=== PATIENT | female | born 1940 | race Caucasian/White ===

== ENCOUNTER → 2016-05-07 | Outpatient (CLI) | payer OTHER ==
[~2016-05-07] MED LIST: ACET-1311 PO; CRD2 PO; GABA-112 PO; GLIP5TAB11 PO; HYZ/10015 PO; LEVO112T4 PO; LIRA18IN SQ; MELO15TA10 PO; METF500T5 PO; TPRSR/25 PO; TRAM-10 PO; VSC/5 PO; WARF-246 PO; [UNRECOGNIZED DRUG - CODE] PO
[2016-05-07 11:12] LABS: CHOLESTEROL/HDL RATIO 3.2
[2016-05-07 11:18] LABS: ESTIMATED AVERAGE GLUCOSE 148 mg/dl; HA1C FLAG Normal (Normal)
--- NOTE | 2016-05-14 07:09 | CODING QUERY MEDICAL NECESSITY ---
SUPPORTING DIAGNOSIS NEEDED A supporting diagnosis is required for the test/procedure performed on this patient in order for us to be reimbursed by the patient's insurance. Please provide a supporting diagnosis for the following test/procedure listed below next to the test name along with your signature. *If there is no additional diagnosis for this patient that would support the following test/procedure please document that below next to the test/procedure. Test(s)/Procedure(s) that require a supporting diagnosis: DOS 05/07 * Hba1c DIAGNOSIS: Provider Signature: Date: Thank you Patricia Guardado Health Information Management Once completed, please kindly fax back to [phone] For questions please call [phone]
== END | disposition home or self-care (01) ==
LOC: C.LABBC 08:46
PROVIDERS: ATTEND Internal Medicine Cardiovascular Disease
DX: E78.00 Pure hypercholesterolemia, unspecified (principal); I10 Essential (primary) hypertension; E11.9 Type 2 diabetes mellitus without complications

== ENCOUNTER → 2016-08-01 | Outpatient (CLI) | payer OTHER ==
[~2016-08-01] MED LIST changes: +MIRA1TAB3 PO; -TRAM-10 PO; -VSC/5 PO
[2016-08-01 13:48] LABS: ESTIMATED AVERAGE GLUCOSE 140 mg/dl; HA1C FLAG Normal (Normal)
[2016-08-01 14:35] LABS: BLOOD UREA NITROGEN 30 mg/dl (7-18); BUN/CREATININE RATIO 24.6 (10-20); CALCIUM 9.1 mg/dl (8.5-10.1); CARBON DIOXIDE 29 mmol/L (21-32); CHLORIDE 106 mmol/L (98-107); GLUCOSE 104 mg/dl (70-99); POTASSIUM 4.4 mmol/L (3.5-5.1); SODIUM 141 mmol/L (136-145)
[2016-08-01 14:49] LABS: RATIO 10.1 mcg/mg (0-30.0)
== END | disposition home or self-care (01) ==
LOC: C.LABBC 10:34
PROVIDERS: ATTEND Nurse Practitioner Family
DX: E11.8 Type 2 diabetes mellitus with unspecified complications (principal)

== ENCOUNTER → 2016-10-22 | Outpatient (CLI) | payer OTHER ==
[~2016-10-22] MED LIST changes: -MIRA1TAB3 PO
--- NOTE | 2016-10-22 10:49 | DIAGNOSTIC IMAGING REPORT ---
KUB CLINICAL HISTORY: Nephrolithiasis. Urinary incontinence. FINDINGS: 2 AP supine abdominal radiographs are compared to study dated 01/01/2016 and correlated with abdominal CT dated 11/07/2015. There is a nonobstructed abdominal bowel gas pattern. There is no radiographic evidence of nephrolithiasis. The skeletal structures are osteopenic. There is advanced lumbosacral spondylosis and scoliosis. Arthritic change is observed in the hips. The heart is enlarged. IMPRESSION: 1. Nonobstructed abdominal bowel gas pattern. 2. There is no radiographic evidence of nephrolithiasis. Electronically signed by: Jerel Pompa M.D. 10/22/2016 10:48 AM Dictated Date/Time: 10/22/2016 10:47 AM
== END | disposition home or self-care (01) ==
LOC: C.RADBC 10:22
PROVIDERS: ATTEND Urology
DX: N20.0 Calculus of kidney (principal); R32 Unspecified urinary incontinence

== ENCOUNTER → 2016-11-11 | Outpatient (CLI) | payer OTHER ==
[2016-11-11 11:25] LABS: ALT/SGPT 16 U/L (12-78); AST/SGOT 10 U/L (15-37); BLOOD UREA NITROGEN 30 mg/dl (7-18); BUN/CREATININE RATIO 27.4 (10-20); CALCIUM 8.9 mg/dl (8.5-10.1); CARBON DIOXIDE 26 mmol/L (21-32); CHLORIDE 105 mmol/L (98-107); GLUCOSE 79 mg/dl (70-99); POTASSIUM 4.4 mmol/L (3.5-5.1); SODIUM 137 mmol/L (136-145)
[2016-11-11 11:36] LABS: ALB/GLOB RATIO 0.9 (0.9-2); ALKALINE PHOSPHATASE 91 U/L (45-117); CHOLESTEROL 159 mg/dl (0-200); CHOLESTEROL/HDL RATIO 3.1; HDL CHOLESTEROL 52 mg/dl; LDL CHOLESTEROL CALCULATED 87 mg/dl; TRIGLYCERIDES 102 mg/dl (0-150); VERY LOW DENSITY LIPOPROT CALC 20 mg/dl
[2016-11-11 11:39] LABS: ESTIMATED AVERAGE GLUCOSE 134 mg/dl; HA1C FLAG Normal (Normal)
[2016-11-11 11:41] LABS: RATIO 9.9 mcg/mg (0-30.0)
== END | disposition home or self-care (01) ==
LOC: C.LABBC 08:57
PROVIDERS: ATTEND Internal Medicine Cardiovascular Disease
DX: I10 Essential (primary) hypertension (principal); I48.91 Unspecified atrial fibrillation; E03.9 Hypothyroidism, unspecified; E78.00 Pure hypercholesterolemia, unspecified; E11.8 Type 2 diabetes mellitus with unspecified complications

== ENCOUNTER → 2017-03-03 | Outpatient (CLI) | payer OTHER ==
[~2017-03-03] MED LIST changes: -GABA-112 PO; +MIRA1TAB3 PO; -[UNRECOGNIZED DRUG - CODE] PO
--- NOTE | 2017-03-04 07:51 | MAMMOGRAPHY REPORT ---
BILATERAL DIGITAL SCREENING MAMMOGRAM TOMOSYNTHESIS WITH CAD: 03/03/2017 CLINICAL HISTORY: Routine screening. Patient has no complaints. TECHNIQUE: Bilateral breast tomosynthesis in addition to standard 2D mammography was performed. Repe at 2-D right MLO, left MLO and left X cc L views were also obtained due to motion. Current study was also evaluated with a Computer Aided Detection (CAD) system. COMPARISON: Comparison is made to exams dated: 03/01/2016 mammogram, 02/22/2015 mammogram, 02/21/2014 [facility] mogram, 02/16/2013 mammogram, 02/07/2012 mammogram, and 02/04/2011 mammogram - [facility]. BREAST COMPOSITION: The tissue of both breasts is almost entirely fatty. FINDINGS: There are scattered benign-appearing calcifications and moderate vascular calcification in the breasts. Stable biopsy marker clip in the left upper outer quadrant posteriorly. No suspicious mass, architectural distortion or cluster of microcalcifications is seen. IMPRESSION: ACR BI-RADS CATEGORY 1: NEGATIVE There is no mammographic evidence of malignancy. A 1 year screening mammogram is recommended. The pa tient will receive written notification of the results. Approximately 10% of breast cancers are not detected with mammography. A negative mammographic report should not delay biopsy if a clinically suggestive mass is present. Joy Whitehead M.D. ay/:03/03/2017 16:07:11 Greens Picker: Cecy SMITH(Dm)(Amish)([place]), [facility] letter sent: Normal 1/2 BI-RADS Code: ACR BI-RADS Category 1: Negative
== END | disposition home or self-care (01) ==
LOC: C.MAMM 11:45
PROVIDERS: ATTEND Internal Medicine
DX: Z12.31 Encounter for screening mammogram for malignant neoplasm of breast (principal)

== ENCOUNTER → 2017-03-06 | Outpatient (CLI) | payer OTHER | END | disposition home or self-care (01) | LOC: C.LABBC 09:15 | PROVIDERS: ATTEND Urology | DX: N39.0 Urinary tract infection, site not specified (principal) ==

== ENCOUNTER → 2017-03-07 | Outpatient (CLI) | payer OTHER ==
[2017-03-07 15:25] LABS: BLOOD UREA NITROGEN 32 mg/dl (7-18); CREATININE 1.29 mg/dl (0.60-1.20)
== END | disposition home or self-care (01) ==
LOC: C.LABBC 11:28
PROVIDERS: ATTEND Urology
DX: E11.8 Type 2 diabetes mellitus with unspecified complications (principal); R31.9 Hematuria, unspecified

== ENCOUNTER → 2017-03-11 | Outpatient (CLI) | payer OTHER ==
[~2017-03-11] MED LIST changes: +OPTIRAY 320 IV PRN
--- NOTE | 2017-03-11 09:36 | DIAGNOSTIC IMAGING REPORT ---
ABDOMEN AND PELVIS CT WITH AND WITHOUT IV CONTRAST, UROGRAM PROTOCOL CT DOSE: 3779.73 mGy.cm HISTORY: Hematuria. TECHNIQUE: Multiaxial CT images of the abdomen and pelvis were performed both before and after the use of intravenous contrast to evaluate the urinary system. Maximal intensity projection images were performed at the workstation by the radiologist. A dose lowering technique was utilized adhering to the principles of ALARA. COMPARISON STUDY: Abdomen and pelvis CT 11/07/2015. FINDINGS: These within the lower pole the left kidney remains unchanged and measures 10 x 4 mm. There are few small stones within the left renal pelvis. This has progressed. No right renal calculi. No ureteral calculi. No hydronephrosis. Overall, poor opacification of the urinary system. Possible subtle nodularity within the right renal pelvis on image 170 of 436. This may represent artifact. The proximal to mid right ureter and mid left ureter are not opacified. No suspicious filling defects seen within the opacified left renal collecting system or opacified ureters. There is only a small amount of contrast in the bladder. No definite bladder masses. The heart remains enlarged. Bibasilar linear densities consistent with subsegmental atelectasis. Degenerative changes within the lumbar spine are again noted. Nodular contour to the liver consistent with cirrhosis. This is also unchanged. No hepatic or splenic masses. The adrenal glands and gallbladder are unremarkable. The kidneys enhance normally. Small fat-containing umbilical hernia. There is a 2.5 cm diverticulum at the duodenum. Hysterectomy. Colonic diverticulosis. No bowel wall thickening or obstruction. IMPRESSION: 1. Left-sided nephrolithiasis as described above which has slightly progressed. No right renal or ureteral calculi. No hydronephrosis. 2. Question subtle nodularity within the right renal pelvis. This favors artifact but could represent tiny urothelial lesions. Correlation with urine cytology is recommended for further evaluation. Otherwise no suspicious filling defects seen within the opacified urinary system as described above. 3. Cirrhosis. 4. Additional findings as described above. Electronically signed by: Talon Monte M.D. 03/11/2017 9:35 AM Dictated Date/Time: 03/11/2017 9:13 AM
== END | disposition home or self-care (01) ==
LOC: C.CTS 08:27
PROVIDERS: ATTEND Urology
DX: N20.0 Calculus of kidney (principal); K74.60 Unspecified cirrhosis of liver

== ENCOUNTER → 2017-03-13 | Outpatient (CLI) | payer OTHER ==
[~2017-03-13] MED LIST changes: -LIRA18IN SQ; -OPTIRAY 320 IV PRN
[2017-03-13 17:17] LABS: BLOOD UREA NITROGEN 37 mg/dl (7-18); CREATININE 1.76 mg/dl (0.60-1.20)
== END | disposition home or self-care (01) ==
LOC: C.LABBC 14:20
PROVIDERS: ATTEND Urology
DX: E11.8 Type 2 diabetes mellitus with unspecified complications (principal); R31.9 Hematuria, unspecified

== ENCOUNTER 2022-01-30 18:56 | Inpatient (IN) ==
[2022-01-30] MEDS ORDERED: SODIUM CHLORIDE 0.9% 250 ML IV PRN (19:08)
[2022-01-30] MEDS ORDERED: PANTOprazole 80 MG in DEXTROSE 5% 100 ML IV ONE (19:19)
[2022-01-30] MEDS ORDERED: PANTOPRAZOLE BOLUS/DRIP 1 EACH IV STA (19:19)
--- NOTE | 2022-01-30 19:25 | Emergency Department Note ---
Impression & Plan Acute GI bleeding, Symptomatic anemia, TERESA (acute kidney injury) ED Provider Note NAME: SOFI ADRIAN AGE: 81 SEX: F : 1940 ARRIVES VIA: Ambulance INFORMANT: Patient ED PROVIDER(S): Ajay Long DO CHIEF COMPLAINT: Low hemoglobin HPI: Patient is an 81-year-old female with a past medical history of CKD, anemia, A. fib, sciatica, hypertension, who presents to the ER for low hemoglobin. She denies all other complaints. No headache or change in vision. No chest pain or shortness of breath. No nausea, vomiting, or diarrhea. No dysuria, urgency, or frequency. No other exacerbating or remitting factors. She had her hemoglobin checked at home and went from 11-8. PCP stopped her Coumadin. There was no rectal exam. She denies any black stools or bright red blood per rectum. She notes that she does not look at her stools however. They restarted her Coumadin today and recheck her hemoglobin which decreased to 6 and she was referred in. ROS: See above HPI for pertinent positives & negatives. A total of 10 systems r eviewed and were otherwise negative. PAST MEDICAL HISTORY:See Below PAST SURGICAL HISTORY:See Below FAMILY HISTORY:See Below SOCIAL HISTORY:See Below HOME MEDICATIONS:See Below ALLERGIES:See Below VITALS:See Below PHYSICAL EXAMINATION: GENERAL: Sitting up in bed, alert, well appearing, well nourished, no distress, non-toxic EYE EXAM: normal conjunctiva. OROPHARYNX: no exudate, no erythema, lips, buccal mucosa, and tongue normal and mucous membranes are moist NECK: supple, no nuchal rigidity, no adenopathy, non-tender LUNGS: Clear to auscultation. Normal chest wall mechanics HEART: no murmurs, S1 normal and S2 normal ABDOMEN: abdomen soft, non-tender, normo-active bowel sounds, no masses, no rebound or guarding. RECTAL: hem + black stools UPPER EXTREMITIES: upper extremities are grossly normal. LOWER EXTREMITIES: No pitting edema. NEURO EXAM: Normal sensorium, cranial nerves II-XII grossly intact, normal spe ech, no gross weakness of arms, no gross weakness of legs. MEDICAL DECISION MAKING: Patient is a 81-year-old female who presents ER referred in by PCP. IV was established blood work is obtained. Labs show no significant leukocytosis. Anemia at 6.7 which went from 10 to 8 over the past week and then down to 6.7. INR at 3.2. BMP with a creatinine of 2.1 up from baseline of 1.5. LFTs bilirubin was unremarkable. Blood was heme positive and dark. Patient was orde red 2 units PRBC PEs and was started while in the ER. Patient was updated bedside at admitted for further work-up with Dr. Car. Patient was given Protonix drip and bolus. Of note hospitalist was called prior to the results of blood work as patient had blood work done as an outpatient which showed low hemoglobin. Which had trended down. Triage Nursing notes reviewed. Limited review of prior medical records performed Vital Signs: reviewed and remarkable for no significant abnormalities Differential diagnosis: Differential diagnosis includes etiologies such as diverticulitis, diverticulosis, AVM, coagulopathy, colitis, inflammatory bowel disease, malignancy, Tori-Almaguer tear, esophagitis, peptic ulcer disease, variceal bleed, gastritis, epistaxis, fissure, hemorrhoids, as well as others were entertained. ER treatment provided: See below Diagnostics interpreted by me: ECG: A. fib rate 87 T wave inversion lead III T wave inversions in the septal leads ST depressions in the lateral leads QTC 428 T wave changes are new from previous Cardiac Monitoring: An order was placed for continuous cardiac monitoring. The monitor shows a rate of 90 with sinus rhythm. Laboratory studies: As stated above and show below. Imaging studies: See below Consultation(s): Discussed with Dr. Abel Car for further evaluation Procedures: none Critical Care: I have personally spent 32 minutes of critical care time in the direct management of this patient. This includes bedside care, interpretation of diagnostic studies, and testing, discussion with consultants, patient, and family members, and other required patient management activities. This 32 minutes is in excess of all separately billable procedures. Past Med/Surg History Medical History (Updated 01/30/22 @ 23:07 by Ajay Long DO) Afib Dx a long time ago, taking warfarin Follows with medical doctor (Hilary JI) Rate controlled at 08/2020 PCP appt CKD (chronic kidney disease), stage III Closed fracture of left proximal humerus 2019- no surgical intervention needed Cognitive disorder Diabetes mellitus type 2, uncontrolled Glucose well controlled Dyslipidemia 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 Hypertension Hypothyroidism Nephrolithiasis, uric acid Hx of and had surgery Sciatica Urge incontinence Surgical History H/O total knee replacement right and left History of appendectomy History of bilateral cataract extraction History of total abdominal hysterectomy and bilateral salpingo-oophorectomy History of tubal ligation Hx of lithotripsy Family History Father Diabetes Hypertension Emphysema, unspecified Mother Hypertension Myocardial infarction Sister Alzheimer disease Hypertension Denies family history of Ovarian cancer Prostate cancer Breast cancer Lung cancer Colorectal cancer Social History Smoking Status: Never smoker Age Started Using Tobacco: 17; Age Quit Using Tobacco: 21; packs per day: 1; Second Hand Exposure: No; Hx Alcohol Use: Yes Alcohol type: wine and hard liquor Alcohol Intake Frequency: 4 or More x per/Week Hx Substance Use: No Preferred Language: [place] Communication Ability: Effective Visual Impairment: Limited Hearing Ability: Normal Heel Slicker Required: No Beliefs That Will Affect Care: None marital status: Single Current Living Situation: Alone current occupational status: retired Feels Safe at Home: Yes Childhood Exposure to Second-Hand Smoke: No caffeine: Yes Dental Care, Regularly: Yes Physical Activity Frequency: Does not Exercise Seatbelt Use: always Sunscreen Use: Yes Assistive Devices: Cane and Contacts Allergies Allergies Allergy/AdvReac Type Severity Reaction Status Date / Time Penicillins Allergy Intermediate Hives Verified 01/30/22 20:05 cefuroxime [From Ceftin] AdvReac Intermediate Diarrhea Verified 01/30/22 20:05 pioglitazone AdvReac Intermediate Fluid Verified 01/30/22 20:05 retention Home Meds Home Medications Medication Instructions Recorded Confirmed acetaminophen 500 mg tablet 1,000 mg PO BID Pain 06/21/21 01/30/22 (Tylenol Extra Strength) warfarin 5 mg tablet 5 mg PO QPM 01/25/22 01/30/22 Previous Rx's Medication Instructions Recorded cholecalciferol (vitamin D3) 50 50 mcg PO DAILY #30 caps 09/11/20 mcg (2,000 unit) capsule tramadol 50 mg tablet 25 mg PO DAILY PRN pain #15 tabs 09/20/20 doxazosin 2 mg tablet 2 mg PO QAM #90 tabs 02/13/21 metoprolol succinate 25 mg 25 mg PO QAM #90 tabs 06/20/21 tablet,extended release 24 hr metformin 500 mg tablet,extended 500 mg PO BID #180 tabs 10/12/21 release 24 hr levothyroxine 112 mcg tablet 112 mcg PO QAM #90 tabs 11/08/21 trospium 20 mg tablet 20 mg PO HS #90 tabs 12/12/21 losartan 100 1 tab PO QAM #90 tabs 12/13/21 mg-hydrochlorothiazide 25 mg tablet (Hyzaar) ciprofloxacin HCl 250 mg tablet 250 mg PO BID 5 days #10 tabs 01/24/22 Results & Data (ED) Vital Signs Vital Signs - 24 hr 01/30/22 18:52 01/30/22 19:07 01/30/22 19:30 Temperature 36.6 C Temperature Source Oral Pulse Rate 87 88 Pulse Rate [Apical] 88 Respiratory Rate 18 18 18 Respiratory Effort / Characteristics Non-Labored Non-Labored Respiratory Depth Normal Normal Blood Pressure 152/66 H Blood Pressure [Right Arm] 152/66 H Blood Pressure Mean 94 Blood Pressure Mean [Right Arm] 94 Pulse Oximetry 99 99 97 Oxygen Delivery Method Room Air Room Air Room Air Sepsis Recent Fever Within 48 Hours No Sepsis New/Unexplained Change in Mental Status No Sepsis Action Taken by Nursing No Action Required Laboratory Data Result diagrams: 01/30/22 19:16 01/30/22 19:16 Lab Results 01/30/22 01/30/22 01/30/22 Range/Units 19:07 19:16 19:16 WBC 9.59 (4.8-10.8) K/ul RBC 2.51 L (3.93-5.22) M/uL Hgb 6.7 L* (12.0-16.0) g/dl Hct 21.9 L (34.1-44.9) % MCV 87.3 (80.0-100.0) fL MCH 26.7 (25.0-34.0) pg MCHC 30.6 L (32.0-36.0) g/dL RDW Std Deviation 54.8 H (36.4-46.3) fL RDW Coeff of Amos 17.5 H (11.5-14.5) % Plt Count 212 (130-400) K/uL MPV 11.4 (9.4-12.3) fL Immature Gran % (Auto) 0.5 % Neut % (Auto) 65.7 % Lymph % (Auto) 12.9 % [place] % (Auto) 17.6 % Eos % (Auto) 2.7 % Baso % (Auto) 0.6 % Neut # (Auto) 6.29 (1.4-6.5) K/uL Lymph # (Auto) 1.24 (1.2-3.4) K/uL [place] # (Auto) 1.69 H (0.24-0.82) K/uL Eos # (Auto) 0.26 (0-0.50) K/uL Baso # (Auto) 0.06 (0-0.2) K/uL Immature Gran # (Auto) 0.05 H (0.00-0.02) K/uL RBC Morphology Unremarkable PT 22.1 H (9.0-12.0) Seconds INR 2.2 H (0.9-1.1) APTT 41.1 H (21.0-31.0) Seconds PTT Ratio 1.5 Sodium (136-145) mmol/L Potassium (3.5-5.1) mmol/L Chloride (98-107) mmol/L Carbon Dioxide (21-32) mmol/L Anion Gap (3-11) BUN (6-23) mg/dl Creatinine (0.6-1.2) mg/dl Est Cr Clr Drug Dosing ml/min Est GFR ( Amer) ml/min Est GFR (Non-Af Amer) ml/min BUN/Creatinine Ratio (10-20) Glucose (70-99(Fasting)) mg/dl Calcium (8.5-10.1) mg/dl Iron (35-150) mcg/dl Unsaturated IBC (155-355) mcg/dl Total Bilirubin (0.2-1.0) mg/dl AST (13-39) U/L ALT (7-52) U/L Alkaline Phosphatase (34-104) U/L Troponin I High Sens (0-14) pg/ml Total Protein (6.0-8.3) gm/dl Albumin (3.4-5.0) gm/dl Globulin (2.5-4.0) gm/dl Albumin/Globulin Ratio (0.9-2) Vitamin B12 (180-914) pg/ml Folate (>5.38) ng/ml POC Stool Occult Blood Positive A (Negative) SARS-CoV-2, RNA, NAAT (NEGATIVE) Blood Type Antibody Screen Crossmatch 01/30/22 01/30/22 01/30/22 Range/Units 19:16 19:16 19:16 WBC (4.8-10.8) K/ul RBC (3.93-5.22) M/uL Hgb (12.0-16.0) g/dl Hct (34.1-44.9) % MCV (80.0-100.0) fL MCH (25.0-34.0) pg MCHC (32.0-36.0) g/dL RDW Std Deviation (36.4-46.3) fL RDW Coeff of Amos (11.5-14.5) % Plt Count (130-400) K/uL MPV (9.4-12.3) fL Immature Gran % (Auto) % Neut % (Auto) % Lymph % (Auto) % [place] % (Auto) % Eos % (Auto) % Baso % (Auto) % Neut # (Auto) (1.4-6.5) K/uL Lymph # (Auto) (1.2-3.4) K/uL [place] # (Auto) (0.24-0.82) K/uL Eos # (Auto) (0-0.50) K/uL Baso # (Auto) (0-0.2) K/uL Immature Gran # (Auto) (0.00-0.02) K/uL RBC Morphology PT (9.0-12.0) Seconds INR (0.9-1.1) APTT (21.0-31.0) Seconds PTT Ratio Sodium 135 L (136-145) mmol/L Potassium 4.2 (3.5-5.1) mmol/L Chloride 104 (98-107) mmol/L Carbon Dioxide 23 (21-32) mmol/L Anion Gap 8 (3-11) BUN 62 H (6-23) mg/dl Creatinine 2.01 H (0.6-1.2) mg/dl Est Cr Clr Drug Dosing 29.5 ml/min Est GFR ( Amer) 26.5 ml/min Est GFR (Non-Af Amer) 22.9 ml/min BUN/Creatinine Ratio 30.8 H (10-20) Glucose 238 H (70-99(Fasting)) mg/dl Calcium 8.0 L (8.5-10.1) mg/dl Iron 28 L (35-150) mcg/dl Unsaturated IBC 306 (155-355) mcg/dl Total Bilirubin 0.3 (0.2-1.0) mg/dl AST 10 L (13-39) U/L ALT 10 (7-52) U/L Alkaline Phosphatase 100 (34-104) U/L Troponin I High Sens 16.4 H (0-14) pg/ml Total Protein 7.3 (6.0-8.3) gm/dl Albumin 3.5 (3.4-5.0) gm/dl Globulin 3.8 (2.5-4.0) gm/dl Albumin/Globulin Ratio 0.9 (0.9-2) Vitamin B12 (180-914) pg/ml Folate (>5.38) ng/ml POC Stool Occult Blood (Negative) SARS-CoV-2, RNA, NAAT NEGATIVE (NEGATIVE) Blood Type Antibody Screen Crossmatch 01/30/22 01/30/22 Range/Units 19:16 19:24 WBC (4.8-10.8) K/ul RBC (3.93-5.22) M/uL Hgb (12.0-16.0) g/dl Hct (34.1-44.9) % MCV (80.0-100.0) fL MCH (25.0-34.0) pg MCHC (32.0-36.0) g/dL RDW Std Deviation (36.4-46.3) fL RDW Coeff of Amos (11.5-14.5) % Plt Count (130-400) K/uL MPV (9.4-12.3) fL Immature Gran % (Auto) % Neut % (Auto) % Lymph % (Auto) % [place] % (Auto) % Eos % (Auto) % Baso % (Auto) % Neut # (Auto) (1.4-6.5) K/uL Lymph # (Auto) (1.2-3.4) K/uL [place] # (Auto) (0.24-0.82) K/uL Eos # (Auto) (0-0.50) K/uL Baso # (Auto) (0-0.2) K/uL Immature Gran # (Auto) (0.00-0.02) K/uL RBC Morphology PT (9.0-12.0) Seconds INR (0.9-1.1) APTT (21.0-31.0) Seconds PTT Ratio Sodium (136-145) mmol/L Potassium (3.5-5.1) mmol/L Chloride (98-107) mmol/L Carbon Dioxide (21-32) mmol/L Anion Gap (3-11) BUN (6-23) mg/dl Creatinine (0.6-1.2) mg/dl Est Cr Clr Drug Dosing ml/min Est GFR ( Amer) ml/min Est GFR (Non-Af Amer) ml/min BUN/Creatinine Ratio (10-20) Glucose (70-99(Fasting)) mg/dl Calcium (8.5-10.1) mg/dl Iron (35-150) mcg/dl Unsaturated IBC (155-355) mcg/dl Total Bilirubin (0.2-1.0) mg/dl AST (13-39) U/L ALT (7-52) U/L Alkaline Phosphatase (34-104) U/L Troponin I High Sens (0-14) pg/ml Total Protein (6.0-8.3) gm/dl Albumin (3.4-5.0) gm/dl Globulin (2.5-4.0) gm/dl Albumin/Globulin Ratio (0.9-2) Vitamin B12 370 (180-914) pg/ml Folate 5.80 (>5.38) ng/ml POC Stool Occult Blood (Negative) SARS-CoV-2, RNA, NAAT (NEGATIVE) Blood Type A Positive Antibody Screen NEGATIVE Crossmatch See Detail Administered Medications Acetaminophen (Acetaminophen 500 Mg Tab) 1,000 mg PO BID SANAZ Stop: 03/01/22 22:59 Last Admin: 01/30/22 23:02 Dose: 1,000 mg Documented By: HENRI Pantoprazole Sodium 40 mg/ (Syringe) 10 mls @ 5 mls/min IV BID SANAZ Stop: 01/13/23 21:59 Last Admin: 01/30/22 23:01 Dose: 5 mls/min Documented By: HENRI Insulin Aspart (Insulin Aspart Per Unit) 0 units SC Q6 SANAZ Stop: 03/01/22 21:59 Last Admin: 01/30/22 23:02 Dose: 4 units Documented By: HENRI Co-signed By: GUILLE Insulin Glargine (Lantus Per Unit Charge) 5 units SQ BID SANAZ Stop: 03/01/22 22:59 Last Admin: 01/30/22 23:02 Dose: 5 units Documented By: HENRI Co-signed By: GUILLE Discontinued Medications Pantoprazole Sodium (Protonix Bolus/Drip) 0 mls @ 1 mls/hr IV ONE STA Stop: 01/30/22 19:20 Last Admin: 01/30/22 20:39 Dose: Not Given Documented By: HANK Pantoprazole Sodium 40 mg/ (Dextrose) 100 mls @ 20 mls/hr IV Q5H SANZA Stop: 03/01/22 19:44 Last Admin: 01/30/22 20:39 Dose: 8 mg/hr, 20 mls/hr Documented By: HANK Pantoprazole Sodium 80 mg/ (Dextrose) 120 mls @ 400 mls/hr IV NOW ONE Stop: 01/30/22 19:36 Last Infusion: 01/30/22 21:19 Dose: 0 mls/hr Documented By: Admin: 01/30/22 20:39 Dose: 400 mls/hr Documented By: HANK Discharge Plan Visit Data Chief Complaint: Abnormal Labs/Diagnostic Testing Stated Complaint: low blood count ED Provider: Ajay Long Discharge Problem: Acute GI bleeding, Symptomatic anemia, TERESA (acute kidney injury) Patient Disposition: Admitted As Inpatient Discharge Instructions Interventions: ED Discharge Assessment Last Done: 01/30/22 21:33
[2022-01-30] MEDS ORDERED: PANTOprazole 40 MG in DEXTROSE 5% 100 ML IV SCH (19:45)
[2022-01-30 20:05] LABS: INR 2.2 (0.9-1.1); Partial Thromboplastin Ratio 1.5; Partial Thromboplastin Time 41.1 Seconds (21.0-31.0); Prothrombin Time 22.1 Seconds (9.0-12.0)
[2022-01-30 20:07] LABS: Albumin Globulin Ratio 0.9 (0.9-2); Albumin Level 3.5 gm/dl (3.4-5.0); BUN Creatinine Ratio 30.8 (10-20); Bilirubin,Total 0.3 mg/dl (0.2-1.0); Creatinine Clr Calc Pharmacy 29.5 ml/min; Est GFR (African American) 26.5 ml/min; Est GFR (Non-African American) 22.9 ml/min; Globulin 3.8 gm/dl (2.5-4.0); Potassium 4.2 mmol/L (3.5-5.1); Total Protein 7.3 gm/dl (6.0-8.3)
[2022-01-30 20:22] LABS: Hematocrit (blood only) 21.9 % (34.1-44.9); Hemoglobin 6.7 g/dl (12.0-16.0); Mean Corpuscular Hemoglobin 26.7 pg (25.0-34.0); Mean Corpuscular Hgb Conc 30.6 g/dL (32.0-36.0); Mean Corpuscular Volume 87.3 fL (80.0-100.0); Mean Platelet Volume 11.4 fL (9.4-12.3); Platelet Count 212 K/uL (130-400); RDW Coefficient of Variation 17.5 % (11.5-14.5); RDW Standard Deviation 54.8 fL (36.4-46.3); Red Blood Count 2.51 M/uL (3.93-5.22); White Blood Count 9.59 K/ul (4.8-10.8)
[2022-01-30 20:24] LABS: Basophils # (auto) 0.06 K/uL (0-0.2); Basophils % (auto) 0.6 %; Eosinophils # (auto) 0.26 K/uL (0-0.50); Eosinophils % (auto) 2.7 %; Immature Granulocytes # (auto) 0.05 K/uL (0.00-0.02); Immature Granulocytes % (auto) 0.5 %; Lymphocytes # (auto) 1.24 K/uL (1.2-3.4); Lymphocytes % (auto) 12.9 %; Monocytes # (auto) 1.69 K/uL (0.24-0.82); Monocytes % (auto) 17.6 %; Neutrophils # (auto) 6.29 K/uL (1.4-6.5); Neutrophils % (auto) 65.7 %; RBC Morphology Unremarkable
--- NOTE | 2022-01-30 20:25 | History & Physical Report ---
Date of Service January 30, 2022 Assessment & Plan (1) GI bleed: Plan: -Admit to med/tele -Patient is currently afebrile, hemodynamically stable, and stable on RA -Outside labs showing Hgb of 6.3, patient found to be heme + on stool test in the ED -Was consented for transfusion, 2 units ordered by the ED, already started on Protonix drip prior to admission -Will make NPO except meds, hold warfarin for now, INR is currently 2.2, patient is stable and without major bleed at this time so will not reverse for now -Ordering two large bore IVs and orthostatic vitals -GI consult placed -Monitor CBC q6h with communication to time first CBC 1-2 hours after tra nsfusions have been completed -AM BMP (2) Anemia: Plan: -See GI bleed (3) Stress incontinence: Plan: -Continue trospium and doxazosin (4) TERESA (acute kidney injury): Plan: -Cr at 2.0 today, baseline appears to be 1.3 -Likely from dehydration and GI bleed -Monitor renal function in am after receiving blood, avoid nephrotoxins, will hold losartan-hctz for now (5) Cognitive disorder: Plan: -Patient has a hx of delusional disorder and niece is her court appointed guardian (6) HTN (hypertension): Plan: -Hold losartan-HCTZ with TERESA and to avoid hypotension for now (7) Hypothyroidism: Plan: -Continue levothyroxine (8) Dyslipidemia: Plan: -Continue statin (9) Diabetes mellitus type 2, uncontrolled: Plan: -Hold metformin -Goal BSG is 110-160 -Will start with 5 units lantus BID -Correction factor of 35 and carb ration of 12 -Monitor BSG q4h while NPO (10) Afib: Plan: -Currently rate controlled -Continue metoprolol -Hold warfarin for now with GI bleed and anemia (11) Elevated troponin: Plan: -Noted to be 16.4, patient is asymptomatic -Likely due to demand from GI bleed -Will order 2 hour repeat now Plan The patient was discussed with Dr. Car at the time of the admission History of Present Illness Chief Complaint: Abnormal outpatient labs Primary Care Provider: Doug Leon MD Luana is an 81 year old female with a PMH significant for cognitive disorder/delusional disorder (Niece Vaishnavi is her court appointed guardian), afib on Warfain, lower extremity edema, DM II, CKD stage 3, hypothyroidism, dyslipidemia, HTN, and urinary incontinence who presented to the [facility] ED on 01/30/22 at the recommendation of her PCP. Per chart review, the patient In the ED the patient was noted to be afebrile, hemodynamically stable, and stable on RA. Labs were remarkable for a hgb of 6.3, stable platelets, INR of 2.2, Cr of 2.0 (baseline appears to be around 1.3), corrected sodium of 137, glucose of 238, corrected calcium of 8.4, stable liver function, covid negative, and positive stool occult blood. Prior to admission the patient was consented for blood, ordered 1 unit PRBCs, and started on a Protonix drip. At the time of the exam the patient was resting comfortably in bed in no acute distress with her Niece sitting bedside. History is obtained from the patient and her niece. The patient's niece states that her PCP has been monitor her Hgb as she has been having worsening anemia. Her niece states that they were alerted today by here PCP to go to the ED due to her Hgb of 6.3. When asked, the patient denies any recently bloody bowel movements or melena. She denies recent fevers, chills, chest pain, SOB, abdominal pain, nausea, vomiting, abdominal pain, dysuria, hematuria. Her niece said that the patient recently completed a 5 day course of ciprofloxacin for a UTI, she was noted to have hematuria when they obtained her UA. Her niece explains that the patient had a fall at home approximately 2 weeks ago, it is unsure if she hit her head at that time. She was noted to have some bruising on her back but she refused to go to the ED at that time. After my exam her niece spoke to me outside of the patient's room. She explained that the patient was diagnosed with a delusional disorder and her niece was granted limited guardianship but the court. Her niece states that the patient will tell everyone she is fine and has no problems when asked. The patient will also try to trick people into letting her leave without having caregivers at home. The patient lives at home alone and has some home health but only for about 8 hours daily. Her niece has been having issues finding the patient more help at home and is concerned that she will continue to have falls. I spoke to the patient had her niece regarding code status, she is a full code and her niece would make decisions for the patient if she cannot make decisions herself. Please refer to Dr. Car's attestation for any changes to the treatment plan Allergies Allergy/AdvReac Type Severity Reaction Status Date / Time Penicillins Allergy Intermediate Hives Verified 01/30/22 20:05 cefuroxime [From Ceftin] AdvReac Intermediate Diarrhea Verified 01/30/22 20:05 pioglitazone AdvReac Intermediate Fluid Verified 01/30/22 20:05 retention Home Medications Medication Instructions Recorded Confirmed Type cholecalciferol (vitamin D3) 50 50 mcg PO DAILY #30 caps 09/11/20 01/30/22 Rx mcg (2,000 unit) capsule tramadol 50 mg tablet 25 mg PO DAILY PRN pain #15 tabs 09/20/20 01/30/22 Rx doxazosin 2 mg tablet 2 mg PO QAM #90 tabs 02/13/21 01/30/22 Rx metoprolol succinate 25 mg 25 mg PO QAM #90 tabs 06/20/21 01/30/22 Rx tablet,extended release 24 hr acetaminophen 500 mg tablet 1,000 mg PO BID Pain 06/21/21 01/30/22 History (Tylenol Extra Strength) metformin 500 mg tablet,extended 500 mg PO BID #180 tabs 10/12/21 01/30/22 Rx release 24 hr levothyroxine 112 mcg tablet 112 mcg PO QAM #90 tabs 11/08/21 01/30/22 Rx trospium 20 mg tablet 20 mg PO HS #90 tabs 12/12/21 01/30/22 Rx losartan 100 1 tab PO QAM #90 tabs 12/13/21 01/30/22 Rx mg-hydrochlorothiazide 25 mg tablet (Hyzaar) ciprofloxacin HCl 250 mg tablet 250 mg PO BID 5 days #10 tabs 01/24/22 01/30/22 Rx warfarin 5 mg tablet 5 mg PO QPM 01/25/22 01/30/22 History Past Med/Surg History Medical History (Updated 01/30/22 @ 21:18 by Jerrod M. Peno, PA-C) Afib Dx a long time ago, taking warfarin Follows with medical doctor (Hilary JI) Rate controlled at 08/2020 PCP appt CKD (chronic kidney disease), stage III Closed fracture of left proximal humerus 2019- no surgical intervention needed Cognitive disorder Diabetes mellitus type 2, uncontrolled Glucose well controlled Dyslipidemia 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 Hypertension Hypothyroidism Nephrolithiasis, uric acid Hx of and had surgery Sciatica Urge incontinence Surgical History H/O total knee replacement right and left History of appendectomy History of bilateral cataract extraction History of total abdominal hysterectomy and bilateral salpingo-oophorectomy History of tubal ligation Hx of lithotripsy Family History Father Diabetes Hypertension Emphysema, unspecified Mother Hypertension Myocardial infarction Sister Alzheimer disease Hypertension Denies family history of Ovarian cancer Prostate cancer Breast cancer Lung cancer Colorectal cancer Social History Smoking Status: Never smoker Age Started Using Tobacco: 17; Age Quit Using Tobacco: 21; packs per day: 1; Second Hand Exposure: No; Hx Alcohol Use: Yes Alcohol type: wine and hard liquor Alcohol Intake Frequency: 4 or More x per/Week Hx Substance Use: No Preferred Language: Polish Communication Ability: Effective Visual Impairment: Limited Hearing Ability: Normal Safe And Vault Installer Required: No Beliefs That Will Affect Care: None marital status: Single Current Living Situation: Alone current occupational status: retired Feels Safe at Home: Yes Childhood Exposure to Second-Hand Smoke: No caffeine: Yes Dental Care, Regularly: Yes Physical Activity Frequency: Does not Exercise Seatbelt Use: always Sunscreen Use: Yes Assistive Devices: Cane and Contacts Review of Systems Review of Systems: Denies current fever, chills, headache, changes in vision, hearing, taste, and smell, chest pain, SOB, cough, abdominal pain, nausea, vomiting, diarrhea, hematemesis, All systems have been reviewed and are otherwise negative. Physical Exam Physical Exam: Physical Exam: General: In no acute distress, stated age, chronically ill-appearing, non- toxic appearing HEENT: Normocephalic, atraumatic, no scleral icterus, pupils around round, symmetrical, and reactive to light, moist mucus membranes, trachea midline, no thyromegaly Chest/Pulm: No respiratory distress, symmetrical chest expansion, clear breath sounds throughout Cardiac: RRR, no murmurs noted Abdomen: Negative for ascites and bruising, normoactive bowel sounds, soft, non-tender to palpation throughout Musculoskeletal: Symmetrical and without signs of acute trauma, upper and lower extremities with full ROM, no atrophy, spasticity, or flaccidity Extremities: Radial, dorsalis pedis, and posterior tibial pulses are intact and symmetrical, chonic BL venous in the BL lower extremities Skin: Patient without signs of bruisnig on the abdomen, flanks, or back, noted to have small, non-bleeding skin tear on the left lateral ankle which had previously been bandaged by home health nurses Neuro: Alert and oriented to person and place only, no focal defects, CN II- XII tested and intact, no tremors noted Psych: No acute distress, calm and cooperative during the exam Results & Data Results & Data ([facility]) Vital Signs (Past 12 Hours) Vital Signs Temp Pulse Pulse Resp BP BP Pulse Ox 01/30/22 19:30 88 18 152/66 H 97 01/30/22 19:07 88 18 99 01/30/22 18:52 36.6 C 87 18 152/66 H 99 O2 Del Method 01/30/22 19:30 Room Air 01/30/22 19:07 Room Air 01/30/22 18:52 Room Air Laboratory Results Abnormal lab results 01/30/22 01/30/22 01/30/22 Range/Units 19:07 19:16 19:16 RBC 2.51 L (3.93-5.22) M/uL Hgb 6.7 L* (12.0-16.0) g/dl Hct 21.9 L (34.1-44.9) % MCHC 30.6 L (32.0-36.0) g/dL RDW Std Deviation 54.8 H (36.4-46.3) fL RDW Coeff of Amos 17.5 H (11.5-14.5) % Upson # (Auto) 1.69 H (0.24-0.82) K/uL Immature Gran # (Auto) 0.05 H (0.00-0.02) K/uL PT 22.1 H (9.0-12.0) Seconds INR 2.2 H (0.9-1.1) APTT 41.1 H (21.0-31.0) Seconds Sodium (136-145) mmol/L BUN (6-23) mg/dl Creatinine (0.6-1.2) mg/dl BUN/Creatinine Ratio (10-20) Glucose (70-99(Fasting)) mg/dl Calcium (8.5-10.1) mg/dl Iron (35-150) mcg/dl AST (13-39) U/L Troponin I High Sens (0-14) pg/ml POC Stool Occult Blood Positive A (Negative) Crossmatch 01/30/22 01/30/22 01/30/22 Range/Units 19:16 19:16 19:24 RBC (3.93-5.22) M/uL Hgb (12.0-16.0) g/dl Hct (34.1-44.9) % MCHC (32.0-36.0) g/dL RDW Std Deviation (36.4-46.3) fL RDW Coeff of Amos (11.5-14.5) % Upson # (Auto) (0.24-0.82) K/uL Immature Gran # (Auto) (0.00-0.02) K/uL PT (9.0-12.0) Seconds INR (0.9-1.1) APTT (21.0-31.0) Seconds Sodium 135 L (136-145) mmol/L BUN 62 H (6-23) mg/dl Creatinine 2.01 H (0.6-1.2) mg/dl BUN/Creatinine Ratio 30.8 H (10-20) Glucose 238 H (70-99(Fasting)) mg/dl Calcium 8.0 L (8.5-10.1) mg/dl Iron 28 L (35-150) mcg/dl AST 10 L (13-39) U/L Troponin I High Sens 16.4 H (0-14) pg/ml POC Stool Occult Blood (Negative) Crossmatch See Detail ECG Additional Comments: Poor data quality, interpretation may be adversely affected Atrial fibrillation Low voltage QRS Possible Inferior infarct , age undetermined Possible Anterolateral infarct , age undetermined Abnormal ECG When compared with ECG of 01-NOV-2020 10:00, Significant changes have occurred Code Status & VTE Plan Code Status FUll code VTE Prophylaxis Plan VTE Prophylaxis will be ordered: Yes Supervising Physician Co-Signing Physician Notes Patient was seen and examined independently I discussed the case with Jerrod HUERTA I reviewed pertinent past medical social family history and also the plan of car e and agree with the plan of care. Patient has some avoidance of reporting her medical problems she presents with significant anemia. She offers no subjective complaints but on examination has tenderness in her epigastrium. Her biggest complaints revolve around some hip pain. She on physical exam of her's chronic venous stasis changes of her lower extremities. Patient has significant anemia of unclear etiology, her white cells and platelets are good her MCV is 87 RDW is wide and so this may be a mixed picture she is being transfused blood in the emergency department be kept n.p.o. for p ossible gastroenterology evaluation and be on Protonix. Any exceptions will be noted below PG Care Time/CCT Total # of Minutes Spent Total Time Spent with Patient: Total time spent is greater than 50% in coordination of care (as documented) at patient's floor/unit and/or counseling patient: [place] [address] Initial Inpt Care Lvl 2 Patient Type Established Medical Decision Making Moderate Complexity Diagnoses GI bleed K92.2 Anemia D64.9 Stress incontinence N39.3 TERESA (acute kidney injury) N17.9 Cognitive disorder F09 HTN (hypertension) I10 Hypothyroidism E03.9 Dyslipidemia E78.5 Diabetes mellitus type 2, uncontrolled E11.65 Afib I48.91 Elevated troponin R77.8
[2022-01-30] MEDS ORDERED: CARBOHYDRATES FOR HYPOGLYCEMIA PO PRN (20:31)
[2022-01-30] MEDS ORDERED: GLUCAGON FOR INJ 1 MG VIAL SQ PRN (20:31)
[2022-01-30] MEDS ORDERED: GLUCOSE 40% GEL 15 GM TUBE PO PRN (20:31)
[2022-01-30] MEDS ORDERED: DEXTROSE 50% 50 ML SYRINGE IV PRN (20:31)
[2022-01-30] MEDS ORDERED: GLUCOSE 10 TAB/TUBE PO PRN (20:31)
[2022-01-30 20:39] LABS: Iron 28 mcg/dl (35-150); Unsaturated Iron Binding Cap 306 mcg/dl (155-355)
[2022-01-30 21:07] LABS: Troponin I High Sensitivity 16.4 pg/ml (0-14)
[2022-01-30] MEDS ORDERED: traMADol HCL 50 MG TABLET PO PRN (22:33)
[2022-01-30] MEDS: PANTOprazole 40 MG in SYRINGE 0 ML IV SCH (23:01)
[2022-01-30] MEDS: ACETAMINOPHEN 500 MG TAB PO SCH (23:02)
[2022-01-30] MEDS: LANTUS PER UNIT CHARGE SQ SCH (23:02)
[2022-01-30] MEDS: INSULIN ASPART PER UNIT SC SCH (23:02)
[2022-01-31] MEDS: TROSPIUM~ORDER AWAITING ACTION SCH ×3 (02:03→16:34)
[2022-01-31 04:31] LABS: Hematocrit (blood only) 24.6 % (34.1-44.9); Hemoglobin 7.9 g/dl (12.0-16.0); Mean Corpuscular Hemoglobin 27.4 pg (25.0-34.0); Mean Corpuscular Hgb Conc 32.1 g/dL (32.0-36.0); Mean Corpuscular Volume 85.4 fL (80.0-100.0); Mean Platelet Volume 11.6 fL (9.4-12.3); Platelet Count 190 K/uL (130-400); RDW Coefficient of Variation 16.7 % (11.5-14.5); RDW Standard Deviation 51.3 fL (36.4-46.3); Red Blood Count 2.88 M/uL (3.93-5.22); White Blood Count 9.34 K/ul (4.8-10.8)
[2022-01-31 04:42] LABS: INR 2.3 (0.9-1.1); Prothrombin Time 23.7 Seconds (9.0-12.0)
[2022-01-31 05:00] LABS: Albumin Level 3.3 gm/dl (3.4-5.0); Bilirubin,Total 0.7 mg/dl (0.2-1.0); Creatinine Clr Calc Pharmacy 32.8 ml/min; Est GFR (African American) 30.7 ml/min; Est GFR (Non-African American) 26.5 ml/min; Globulin 3.4 gm/dl (2.5-4.0); Potassium 4.3 mmol/L (3.5-5.1); Total Protein 6.7 gm/dl (6.0-8.3)
[2022-01-31 06:05] LABS: Hematocrit (blood only) 25.7 % (34.1-44.9); Hemoglobin 8.3 g/dl (12.0-16.0); Mean Corpuscular Hemoglobin 27.7 pg (25.0-34.0); Mean Corpuscular Hgb Conc 32.3 g/dL (32.0-36.0); Mean Corpuscular Volume 85.7 fL (80.0-100.0); Mean Platelet Volume 10.6 fL (9.4-12.3); Platelet Count 186 K/uL (130-400); RDW Coefficient of Variation 16.5 % (11.5-14.5); RDW Standard Deviation 50.8 fL (36.4-46.3); White Blood Count 9.04 K/ul (4.8-10.8)
[2022-01-31] MEDS: INSULIN ASPART PER UNIT SC SCH ×5 (06:09→21:30)
[2022-01-31] MEDS: LEVOTHYROXINE SODIUM 112 MCG TABLET PO SCH (06:10)
[2022-01-31] MEDS: PANTOprazole 40 MG in SYRINGE 0 ML IV SCH (08:40)
[2022-01-31] MEDS: METOPROLOL SUCC 25MG EXT REL TAB PO SCH (08:41)
[2022-01-31] MEDS: ACETAMINOPHEN 500 MG TAB PO SCH ×2 (08:41→20:38)
[2022-01-31] MEDS: CHOLECALCIFEROL 1,000 UNITS 25 MCG TAB PO SCH (08:41)
[2022-01-31] MEDS: DOXAZosin MESYLATE TAB 2 MG TAB PO SCH (08:41)
[2022-01-31] MEDS: LANTUS PER UNIT CHARGE SQ SCH ×2 (08:42→20:38)
--- NOTE | 2022-01-31 11:38 | Gastrointestinal Consultation ---
Date of Consultation January 31, 2022 Assessment & Plan (1) Symptomatic anemia: (2) Occult GI bleeding: Plan possible PUD or AVM causing her symptomatic anemia, at this time will recommend an egd to further evaluate recs: NPO EGD supportive care, IVFs History of Present Illness Attending Physician: Mamie Abbott MD History of Present Illness 81 yo female with hx delusional disorder, afib on warfarin, CKD III, DM2 here with symptomatic anemia and positive stool occult blood. hgb was noted to be 6.3 on labs. She denies hematemesis, hematochexzia, melena. she does note some left sided abdominal pains now. No recent egd on record. CBC and CMP reviewed. Allergies Allergy/AdvReac Type Severity Reaction Status Date / Time Penicillins Allergy Intermediate Hives Verified 01/30/22 20:05 cefuroxime [From Ceftin] AdvReac Intermediate Diarrhea Verified 01/30/22 20:05 pioglitazone AdvReac Intermediate Fluid Verified 01/30/22 20:05 retention Home Medications Medication Instructions Recorded Confirmed Type cholecalciferol (vitamin D3) 50 50 mcg PO DAILY #30 caps 09/11/20 01/30/22 Rx mcg (2,000 unit) capsule tramadol 50 mg tablet 25 mg PO DAILY PRN pain #15 tabs 09/20/20 01/30/22 Rx doxazosin 2 mg tablet 2 mg PO QAM #90 tabs 02/13/21 01/30/22 Rx metoprolol succinate 25 mg 25 mg PO QAM #90 tabs 06/20/21 01/30/22 Rx tablet,extended release 24 hr acetaminophen 500 mg tablet 1,000 mg PO BID Pain 06/21/21 01/30/22 History (Tylenol Extra Strength) metformin 500 mg tablet,extended 500 mg PO BID #180 tabs 10/12/21 01/30/22 Rx release 24 hr levothyroxine 112 mcg tablet 112 mcg PO QAM #90 tabs 11/08/21 01/30/22 Rx trospium 20 mg tablet 20 mg PO HS #90 tabs 12/12/21 01/30/22 Rx losartan 100 1 tab PO QAM #90 tabs 12/13/21 01/30/22 Rx mg-hydrochlorothiazide 25 mg tablet (Hyzaar) ciprofloxacin HCl 250 mg tablet 250 mg PO BID 5 days #10 tabs 01/24/22 01/30/22 Rx warfarin 5 mg tablet 5 mg PO QPM 01/25/22 01/30/22 History Patient History Medical History Afib Dx a long time ago, taking warfarin Follows with medical doctor (Hilary JI) Rate controlled at 08/2020 PCP appt CKD (chronic kidney disease), stage III Closed fracture of left proximal humerus 2019- no surgical intervention needed Cognitive disorder Diabetes mellitus type 2, uncontrolled Glucose well controlled Dyslipidemia 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 Hypertension Hypothyroidism Nephrolithiasis, uric acid Hx of and had surgery Sciatica Urge incontinence Surgical History H/O total knee replacement right and left History of appendectomy History of bilateral cataract extraction History of total abdominal hysterectomy and bilateral salpingo-oophorectomy History of tubal ligation Hx of lithotripsy Family History Father Diabetes Hypertension Emphysema, unspecified Mother Hypertension Myocardial infarction Sister Alzheimer disease Hypertension Denies family history of Ovarian cancer Prostate cancer Breast cancer Lung cancer Colorectal cancer Social History Smoking Status: Never smoker Age Started Using Tobacco: 17; Age Quit Using Tobacco: 21; packs per day: 1; Second Hand Exposure: No; Hx Alcohol Use: Yes Alcohol type: wine Alcohol Intake Frequency: 4 or More x per/Week Hx Substance Use: No Preferred Language: [place] Communication Ability: Effective Visual Impairment: Limited Hearing Ability: Normal Assurance Services Manager Health Care Required: No Beliefs That Will Affect Care: None marital status: Single Current Living Situation: Alone current occupational status: retired Feels Safe at Home: Yes Childhood Exposure to Second-Hand Smoke: No caffeine: Yes Dental Care, Regularly: Yes Physical Activity Frequency: Does not Exercise Seatbelt Use: always Sunscreen Use: Yes Assistive Devices: Cane and Contacts Review of Systems Constitutional: no fever, no chills and no weight loss Eyes: as per Subjective / HPI Ear, Nose, Mouth, Throat: as per Subjective / HPI Respiratory: no dyspnea and no dyspnea on exertion Cardiovascular: no chest pain and no palpitations Gastrointestinal: as per Subjective / HPI Musculoskeletal: no joint pain and no swelling Integumentary: no rash and no lesions Neurologic: no numbness and no paresthesia Psychiatric: no depression and no anxiety Endocrine: no fatigue Hematologic / Lymphatic: no easy bleeding and no easy bruising Physical Exam Constitutional: WD/WN, vitals as above Eyes: EOM intact bilaterally Neck: normal visual inspection Respiratory: normal respiratory effort, lungs clear to auscultation Cardiovascular: RRR, no murmur, no edema Gastrointestinal (Abdomen): Inspection/Auscultation: abdomen normal to inspection; abdomen not distended Percussion/Palpation: + abdomen tender (mild left sided) and abdomen soft; no hepatosplenomegaly Musculoskeletal: Extremities: no cyanosis Gait: normal gait Skin: no rashes, warm and dry Neurologic: moves all extremities Psychiatric: A+Ox3, euthymic affect Results & Data ([facility]) Vital Signs (Past 12 Hours) Vital Signs Temp Pulse Pulse Pulse Resp BP BP 01/31/22 11:07 36.3 C L 70 18 140/67 01/31/22 07:38 36.5 C 82 20 01/31/22 07:22 72 01/31/22 03:59 88 01/31/22 03:34 36.6 C 75 18 140/85 01/31/22 02:32 36.6 C 75 18 140/85 01/31/22 01:19 01/31/22 00:47 36.7 C 78 18 141/90 H 01/31/22 00:28 36.6 C 84 18 128/79 01/31/22 01:32 36.4 C L 72 18 121/59 L 01/31/22 01:28 36.8 C 71 18 147/70 H 01/31/22 01:02 36.7 C 73 18 145/81 H BP Pulse Ox O2 Del Method 01/31/22 11:07 98 Room Air 01/31/22 07:38 171/72 H 96 Room Air 01/31/22 07:22 01/31/22 03:59 01/31/22 03:34 95 01/31/22 02:32 95 01/31/22 01:19 Room Air 01/31/22 00:47 98 01/31/22 00:28 96 01/31/22 01:32 97 01/31/22 01:28 98 01/31/22 01:02 98 PG Care Time/CCT Total # of Minutes Spent Total Time Spent with Patient: Total time spent is greater than 50% in coordination of care (as documented) at patient's floor/unit and/or counseling patient: Coding Level of Care Code 51949 Initial Inpt Care Lvl 3 Diagnoses Symptomatic anemia D64.9 Occult GI bleeding R19.5
--- NOTE | 2022-01-31 11:39 | Anesthesiology Consultation ---
Date of Service January 31, 2022 Assessment & Plan Chart Review Chart Review: Acceptable Risk for Surgery and Patient NOT seen in Pre Admission Testing Consults Requested none ASA ASA3 Proposed Anesthesia Anesthesia Type: MAC Risk / Benefits Reviewed With: PT / POA / Parent / Guardian, Accepts Plan and Informed Consent Obtained History Surgery Operation Date: 01/31/22 16:30 Proposed Procedures p Esophagogastroduodenoscopy Dr. Song - Josef Song MD Height/Weight Height: 5 ft 6 in Weight: 117.3 kg Allergies Allergy/AdvReac Type Severity Reaction Status Date / Time Penicillins Allergy Intermediate Hives Verified 01/30/22 20:05 cefuroxime [From Ceftin] AdvReac Intermediate Diarrhea Verified 01/30/22 20:05 pioglitazone AdvReac Intermediate Fluid Verified 01/30/22 20:05 retention Medications Home Medications Medication Instructions Recorded Confirmed Last Taken cholecalciferol (vitamin D3) 50 50 mcg PO DAILY #30 caps 09/11/20 01/30/22 01/30/22 mcg (2,000 unit) capsule tramadol 50 mg tablet 25 mg PO DAILY PRN pain #15 tabs 09/20/20 01/30/22 Unknown doxazosin 2 mg tablet 2 mg PO QAM #90 tabs 02/13/21 01/30/22 01/30/22 metoprolol succinate 25 mg 25 mg PO QAM #90 tabs 06/20/21 01/30/22 01/30/22 tablet,extended release 24 hr acetaminophen 500 mg tablet 1,000 mg PO BID Pain 06/21/21 01/30/22 01/30/22 08:00 (Tylenol Extra Strength) metformin 500 mg tablet,extended 500 mg PO BID #180 tabs 10/12/21 01/30/22 01/30/22 08:00 release 24 hr levothyroxine 112 mcg tablet 112 mcg PO QAM #90 tabs 11/08/21 01/30/22 01/30/22 trospium 20 mg tablet 20 mg PO HS #90 tabs 12/12/21 01/30/22 01/29/22 losartan 100 1 tab PO QAM #90 tabs 12/13/21 01/30/22 01/30/22 mg-hydrochlorothiazide 25 mg tablet (Hyzaar) ciprofloxacin HCl 250 mg tablet 250 mg PO BID 5 days #10 tabs 01/24/22 01/30/22 01/29/22 warfarin 5 mg tablet 5 mg PO QPM 01/25/22 01/30/22 01/30/22 Active Medications Generic Name Dose Route Start Last Admin Trade Name Miles PRN Reason Stop Dose Admin Acetaminophen 1,000 mg 01/30/22 23:00 01/31/22 08:41 Acetaminophen 500 Mg Tab PO 03/01/22 22:59 1,000 mg BID SANAZ Administration Doxazosin Mesylate 2 mg 01/31/22 09:00 01/31/22 08:41 Doxazosin Mesylate Tab 2 Mg Tab PO 03/02/22 08:59 2 mg QAM SANAZ Administration Pantoprazole Sodium 40 mg/ 10 mls @ 5 mls/min 01/30/22 22:00 01/31/22 08:40 Syringe IV 03/01/22 21:59 5 mls/min BID SANAZ Administration Insulin Aspart 0 units 01/30/22 22:00 01/31/22 06:09 Insulin Aspart Per Unit SC 03/01/22 21:59 Not Given Q6 SANAZ Insulin Glargine 5 units 01/30/22 23:00 01/31/22 08:42 Lantus Per Unit Charge SQ 03/01/22 22:59 5 units BID SANAZ Administration Levothyroxine Sodium 112 mcg 01/31/22 06:30 01/31/22 06:10 Levothyroxine Sodium 112 Mcg Tablet PO 03/02/22 06:29 Not Given DAILYBB SANAZ Metoprolol Succinate 25 mg 01/31/22 09:00 01/31/22 08:41 Metoprolol Succ 25mg Ext Rel Tab PO 03/02/22 08:59 25 mg QAM SANAZ Administration Miscellaneous 1 each 01/31/22 00:00 01/31/22 09:50 Trospium~Order Awaiting Action N/A 03/02/22 00:00 Not Given QS SANAZ Vitamin D 2,000 units 01/31/22 09:00 01/31/22 08:41 Cholecalciferol 1,000 Units 25 Mcg Tab PO 03/02/22 08:59 2,000 units DAILY SANAZ Administration NPO Date Last Intake of Fluids: 01/31/22 Time Last Intake of Fluids: 08:00 Last Intake of Fluids Comment: sip with meds Date Last Intake of Solids: 01/30/22 Time Last Intake of Solids: 16:00 Past Medical History Medical History Afib Dx a long time ago, taking warfarin Follows with medical doctor (Hilary JI) Rate controlled at 08/2020 PCP appt CKD (chronic kidney disease), stage III Closed fracture of left proximal humerus 2019- no surgical intervention needed Cognitive disorder Diabetes mellitus type 2, uncontrolled Glucose well controlled Dyslipidemia 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 Hypertension Hypothyroidism Nephrolithiasis, uric acid Hx of and had surgery Sciatica Urge incontinence Exercise / Class Metabolic Activity II 4-5 Yardwork/Stairs/Walk up hill Past Family History Family History Father Diabetes Hypertension Emphysema, unspecified Mother Hypertension Myocardial infarction Sister Alzheimer disease Hypertension Denies family history of Ovarian cancer Prostate cancer Breast cancer Lung cancer Colorectal cancer Past Surgical History Surgical History H/O total knee replacement right and left History of appendectomy History of bilateral cataract extraction History of total abdominal hysterectomy and bilateral salpingo-oophorectomy History of tubal ligation Hx of lithotripsy Past Anesthesia History No Hx of Anesthesia Complications and No Family Hx of Anesthesia Complications History of PONV No Hx of PONV and No Hx of Motion Sickness Social History Smoking Status: Never smoker Hx Alcohol Use: Yes Alcohol type: wine alcohol intake frequency: holidays/special occasions only Hx Substance Use: No substance use type: does not use Physical Exam Vital Signs Last Vital Signs Temp 36.3 C L 01/31/22 11:07 Pulse 70 01/31/22 11:07 Resp 18 01/31/22 11:07 BP 140/67 01/31/22 11:07 Pulse Ox 98 01/31/22 11:07 O2 Del Method 01/31/22 11:07 Constitutional + morbidly obese ENMT Mouth: no dentition abnormality Thyromental Distance: > or= 3.5 Finger Breadths Mallampati Class: II Neck normal visual inspection Respiratory normal respiratory effort Auscultation: lungs clear to auscultation bilaterally Cardiovascular Rate/Rhythm: regular rate and regular rhythm Psychiatric Orientation: alert Testing Laboratory Results 01/31/22 05:45 01/31/22 04:04 PT 23.7 Seconds (9.0-12.0) H 01/31/22 04:04 INR 2.3 (0.9-1.1) H 01/31/22 04:04 APTT 41.1 Seconds (21.0-31.0) H 01/30/22 19:16 Blood Type A Positive 01/30/22 19:24 Antibody Screen NEGATIVE 01/30/22 19:24 01/31/22 01/31/22 08:18 06:07 POC Glucose 164 H 160 H
--- NOTE | 2022-01-31 12:31 | GI REPORT ---
Patient Name: Luana Agrawal Procedure Date: 01/31/2022 11:47 AM Date of : 1940 Admit Type: Inpatient Age: 81 Gender: Female Attending MD: Josef Song MD, Procedure: Upper GI endoscopy Providers: Josef Song MD Referring MD: Referred Self Indications: Iron deficiency anemia secondary to chronic blood loss, Occult blood in stool Medicines: Propofol per Anesthesia Complications: No immediate complications. Estimated blood loss: None. Estimated Blood Loss: Estimated blood loss: none. Procedure: Pre-Anesthesia Assessment: - Prior Anticoagulants: The patient has taken no anticoagulant or antiplatelet agents. - ASA Grade Assessment: II - A patient with mild systemic disease. After obtaining informed consent, the endoscope was passed under direct vision. Throughout the procedure, the patient's blood pressure, pulse, and oxygen saturations were monitored continuously. The Endoscope was introduced through the mouth, and advanced to the second part of duodenum. The upper GI endoscopy was accomplished without difficulty. The patient tolerated the procedure well. Findings: The examined esophagus was normal. The entire examined stomach was normal. The duodenal bulb and second portion of the duodenum were normal. Impression: - Normal esophagus. - Normal stomach. - Normal duodenal bulb and second portion of the duodenum. - No specimens collected. Recommendation: - Return patient to [facility] for [facility] care. - Advance diet as tolerated today. -supportive care, -consider outpatient colonoscopy Josef Song MD 01/31/2022 12:30:45 PM This report has been signed electronically. Note Initiated On: 01/31/2022 11:47 AM Number of Addenda: 0 I attest to the content of the Intraoperative Record and orders documented therein, exceptions below {[id number]}
[2022-01-31 13:51] LABS: Hematocrit (blood only) 25.9 % (34.1-44.9); Mean Corpuscular Hemoglobin 27.3 pg (25.0-34.0); Mean Corpuscular Hgb Conc 30.9 g/dL (32.0-36.0); Mean Corpuscular Volume 88.4 fL (80.0-100.0); Mean Platelet Volume 11.3 fL (9.4-12.3); Platelet Count 162 K/uL (130-400); RDW Coefficient of Variation 17.1 % (11.5-14.5); RDW Standard Deviation 54.5 fL (36.4-46.3); Red Blood Count 2.93 M/uL (3.93-5.22); White Blood Count 7.64 K/ul (4.8-10.8)
--- NOTE | 2022-01-31 14:59 | Anesthesiology Progress Note ---
Date of Service January 31, 2022 Anesthesia Post Procedure Vital Signs Vital Signs: Temp Pulse Pulse Pulse Resp BP BP 01/31/22 12:31 74 16 110/48 L 01/31/22 12:17 62 16 105/41 L 01/31/22 12:03 68 12 99/52 L 01/31/22 11:07 36.3 C L 70 18 140/67 01/31/22 07:38 36.5 C 82 20 01/31/22 07:22 72 01/31/22 03:59 88 01/31/22 03:34 36.6 C 75 18 140/85 01/31/22 02:32 36.6 C 75 18 140/85 01/31/22 01:19 01/31/22 00:47 36.7 C 78 18 141/90 H 01/31/22 00:28 36.6 C 84 18 128/79 01/30/22 23:30 36.6 C 84 16 148/84 H 01/31/22 01:32 36.4 C L 72 18 121/59 L 01/31/22 01:28 36.8 C 71 18 147/70 H 01/31/22 01:02 36.7 C 73 18 145/81 H 01/30/22 23:26 36.6 C 83 16 151/85 H 01/30/22 22:55 36.4 C L 81 20 146/73 H 01/30/22 22:45 36.7 C 82 20 129/61 01/30/22 22:25 36.7 C 92 H 20 152/84 H 01/30/22 22:10 36.9 C 82 18 136/66 01/30/22 21:54 37 C 93 H 22 155/60 H 01/30/22 19:30 88 18 01/30/22 19:07 88 18 01/30/22 18:52 36.6 C 87 18 152/66 H BP Pulse Ox O2 Del Method O2 Flow Rate 01/31/22 12:31 97 Room Air 01/31/22 12:17 100 Oxymask 3 01/31/22 12:03 99 Oxymask 6 01/31/22 11:07 98 Room Air 01/31/22 07:38 171/72 H 96 Room Air 01/31/22 07:22 01/31/22 03:59 01/31/22 03:34 95 01/31/22 02:32 95 01/31/22 01:19 Room Air 01/31/22 00:47 98 01/31/22 00:28 96 01/30/22 23:30 96 01/31/22 01:32 97 01/31/22 01:28 98 01/31/22 01:02 98 01/30/22 23:26 97 01/30/22 22:55 95 01/30/22 22:45 94 01/30/22 22:25 94 01/30/22 22:10 96 01/30/22 21:54 97 01/30/22 19:30 152/66 H 97 Room Air 01/30/22 19:07 99 Room Air 01/30/22 18:52 99 Room Air Transfer of Care Handoff Completed per policy Notes Mental Status: alert / awake / arousable Patient Amnestic to Procedure: Yes Nausea / Vomiting: adequately controlled Pain: adequately controlled Airway Patency, RR, SpO2: stable & adequate BP & HR: stable & adequate Hydration State: stable & adequate Anesthetic Complications: no major complications apparent
--- NOTE | 2022-01-31 15:09 | Hospitalist Progress Note ---
Date of Service January 31, 2022 Assessment & Plan (1) GI bleed: Plan: -Outside labs showing Hgb of 6.3, patient found to be heme + on stool test in the ED. Hgb baseline 11 and normocytic in 05/2021, then 8.5 last week Normocytic Fe studies show Fe deficiency Folate also low at 5, B12 borderline low at 370 Pt reports recent black tarry stools in setting of taking coumadin and recent INR 5.1 in the last week EGD 01/31 negative GI recommending outpt colonoscopy-legal guardian says historically patient refuses to leave the house and will likely never return for outpt colonoscopy (although pt tells me she would) If colonoscopy negative, would pursue capsule endoscopy -transfused 2 units PRBCs and is hemodynamically stable -holding coumadin indefinitely -follow CBC in AM -can dc IV PPI as no UGI bleed -give IV iron daily x 3 days for low Fe sat -start folic acid 1mg po daily -ok to advance to reg diet (2) Anemia: Plan: Acute blood loss anemia in setting of chronic anemia as above (3) Stress incontinence: Plan: -Continue trospium and doxazosin (4) TERESA (acute kidney injury): Plan: -Cr at 2.0 on admission, baseline appears to be 1.3 -Likely from dehydration and GI bleed Now improved after PRBC transfusion to 1.78, BUN down to 57 - continue to hold losartan-hctz -follow BMP in AM (5) Cognitive disorder: Plan: -Patient has a hx of delusional disorder and cognitive impairment and niece is her court appointed guardian-reviewed legal documents scanned into chart Guardian is able to consent for patient to go to a SNF if it is recommended by a medical provider even if patient refuses (6) HTN (hypertension): Plan: -Hold losartan-HCTZ with TERESA BPs stable (7) Hypothyroidism: Plan: -Continue levothyroxine recent TSH normal at 2.2 (8) Diabetes mellitus type 2, uncontrolled: Plan: Last recent HgbA1C elevated at 8.3% but ok for age and comorbidities -Hold metformin -continue 5 units lantus BID -Correction factor of 35 and carb ration of 12 (9) Afib: Plan: -Currently rate controlled -Continue metoprolol -Hold warfarin for now with GI bleed and anemia -would not restart until anemia improves and has colonoscopy -check INR in AM (10) Elevated troponin: Plan: -Noted to be 16.4 and then slightly up to 24; patient is asymptomatic -Likely due to demand from GI bleed -check ECHO and also with heart murmur that sounds like Plan Dispo-continued stay, PT/OT evals ordered, may need SNF given recent falls Admission and Anticipated Discharge Date Admission Date: January 30, 2022 Subjective Pt just returned from EGD. Drowsy but wakes up. Denies SOB, CP, nausea. Meredith clear liquids for lunch. Reports having black stools recently, none since admission. Reports she has never had a colonoscopy. GI recommending outpt colonoscopy and cannot accommodate getting her one here in hospital. Legal guardian tells me on the phone that the patient will never return for an outpt colonoscopy as she can't even get her to go in for blood work or other doctor's appts. When I ask pt about her recent falls, she becomes defensive and states "well that's not from my legs (being swollen!" as I was examining her legs Tele with Afib rates in the 70s Review of Systems Review of Systems: All systems reviewed & are unremarkable except as noted in HPI & below Physical Exam Constitutional: WD/WN, vitals as above Eyes: + anicteric sclerae Neck: trachea midline, no thyromegaly Respiratory: normal respiratory effort, lungs clear to auscultation Cardiovascular: Rate/Rhythm: regular rate and + irregularly irregular Heart Sounds: + murmur (2/6 JOAO at RUSB) Extremities: + edema (2+ woody edema legs bilat) Chest (Breasts): Chest: normal inspection of chest Gastrointestinal (Abdomen): Inspection/Auscultation: normal bowel sounds; + abdomen abnormal to inspection (obese) and abdomen not distended Percussion/Palpation: + abdomen tender (LLQ without guarding or rebound) and abdomen soft; no guarding Musculoskeletal: Extremities: no cyanosis and no clubbing Skin: + rash (chronic venous stasis changes legs bilat) and + dry skin (severe on legs bilat); no erythema Neurologic: moves all extremities and awake; no focal motor deficits Speech / Cognition: normal speech Motor/Sensory: no tremor Psychiatric: Orientation: alert, oriented to person, oriented to place, cooperative and + guarded Results & Data Results & Data ([facility]) Vital Signs (Past 12 Hours) Vital Signs Temp Pulse Pulse Pulse Resp BP BP 01/31/22 12:31 74 16 110/48 L 01/31/22 12:17 62 16 105/41 L 01/31/22 12:03 68 12 99/52 L 01/31/22 11:07 36.3 C L 70 18 140/67 01/31/22 07:38 36.5 C 82 20 01/31/22 07:22 72 01/31/22 03:59 88 01/31/22 03:34 36.6 C 75 18 140/85 BP Pulse Ox O2 Del Method O2 Flow Rate 01/31/22 12:31 97 Room Air 01/31/22 12:17 100 Oxymask 3 01/31/22 12:03 99 Oxymask 6 01/31/22 11:07 98 Room Air 01/31/22 07:38 171/72 H 96 Room Air 01/31/22 07:22 01/31/22 03:59 01/31/22 03:34 95 Laboratory Results 01/31/22 01/31/22 01/31/22 Range/Units 13:22 12:57 12:50 WBC 7.64 (4.8-10.8) K/ul RBC 2.93 L (3.93-5.22) M/uL Hgb 8.0 L (12.0-16.0) g/dl Hct 25.9 L (34.1-44.9) % MCV 88.4 (80.0-100.0) fL MCH 27.3 (25.0-34.0) pg MCHC 30.9 L (32.0-36.0) g/dL RDW Std Deviation 54.5 H (36.4-46.3) fL RDW Coeff of Amos 17.1 H (11.5-14.5) % Plt Count 162 (130-400) K/uL MPV 11.3 (9.4-12.3) fL Immature Gran % (Auto) % Neut % (Auto) % Lymph % (Auto) % [place] % (Auto) % Eos % (Auto) % Baso % (Auto) % Neut # (Auto) (1.4-6.5) K/uL Lymph # (Auto) (1.2-3.4) K/uL [place] # (Auto) (0.24-0.82) K/uL Eos # (Auto) (0-0.50) K/uL Baso # (Auto) (0-0.2) K/uL Immature Gran # (Auto) (0.00-0.02) K/uL RBC Morphology PT (9.0-12.0) Seconds INR (0.9-1.1) APTT (21.0-31.0) Seconds PTT Ratio Sodium (136-145) mmol/L Potassium (3.5-5.1) mmol/L Chloride (98-107) mmol/L Carbon Dioxide (21-32) mmol/L Anion Gap (3-11) BUN (6-23) mg/dl Creatinine (0.6-1.2) mg/dl Est Cr Clr Drug Dosing ml/min Est GFR ( Amer) ml/min Est GFR (Non-Af Amer) ml/min BUN/Creatinine Ratio (10-20) Glucose (70-99(Fasting)) mg/dl POC Glucose 134 H 146 H (70-99) mg/dl Calcium (8.5-10.1) mg/dl Iron (35-150) mcg/dl Unsaturated IBC (155-355) mcg/dl Total Bilirubin (0.2-1.0) mg/dl AST (13-39) U/L ALT (7-52) U/L Alkaline Phosphatase (34-104) U/L Troponin I High Sens (0-14) pg/ml Total Protein (6.0-8.3) gm/dl Albumin (3.4-5.0) gm/dl Globulin (2.5-4.0) gm/dl Albumin/Globulin Ratio (0.9-2) Vitamin B12 (180-914) pg/ml Folate (>5.38) ng/ml POC Stool Occult Blood (Negative) SARS-CoV-2, RNA, NAAT (NEGATIVE) Blood Type Antibody Screen Crossmatch 01/31/22 01/31/22 01/31/22 Range/Units 08:18 06:07 05:45 WBC 9.04 (4.8-10.8) K/ul RBC 3.00 L (3.93-5.22) M/uL Hgb 8.3 L (12.0-16.0) g/dl Hct 25.7 L (34.1-44.9) % MCV 85.7 (80.0-100.0) fL MCH 27.7 (25.0-34.0) pg MCHC 32.3 (32.0-36.0) g/dL RDW Std Deviation 50.8 H (36.4-46.3) fL RDW Coeff of Amos 16.5 H (11.5-14.5) % Plt Count 186 (130-400) K/uL MPV 10.6 (9.4-12.3) fL Immature Gran % (Auto) % Neut % (Auto) % Lymph % (Auto) % [place] % (Auto) % Eos % (Auto) % Baso % (Auto) % Neut # (Auto) (1.4-6.5) K/uL Lymph # (Auto) (1.2-3.4) K/uL [place] # (Auto) (0.24-0.82) K/uL Eos # (Auto) (0-0.50) K/uL Baso # (Auto) (0-0.2) K/uL Immature Gran # (Auto) (0.00-0.02) K/uL RBC Morphology PT (9.0-12.0) Seconds INR (0.9-1.1) APTT (21.0-31.0) Seconds PTT Ratio Sodium (136-145) mmol/L Potassium (3.5-5.1) mmol/L Chloride (98-107) mmol/L Carbon Dioxide (21-32) mmol/L Anion Gap (3-11) BUN (6-23) mg/dl Creatinine (0.6-1.2) mg/dl Est Cr Clr Drug Dosing ml/min Est GFR ( Amer) ml/min Est GFR (Non-Af Amer) ml/min BUN/Creatinine Ratio (10-20) Glucose (70-99(Fasting)) mg/dl POC Glucose 164 H 160 H (70-99) mg/dl Calcium (8.5-10.1) mg/dl Iron (35-150) mcg/dl Unsaturated IBC (155-355) mcg/dl Total Bilirubin (0.2-1.0) mg/dl AST (13-39) U/L ALT (7-52) U/L Alkaline Phosphatase (34-104) U/L Troponin I High Sens (0-14) pg/ml Total Protein (6.0-8.3) gm/dl Albumin (3.4-5.0) gm/dl Globulin (2.5-4.0) gm/dl Albumin/Globulin Ratio (0.9-2) Vitamin B12 (180-914) pg/ml Folate (>5.38) ng/ml POC Stool Occult Blood (Negative) SARS-CoV-2, RNA, NAAT (NEGATIVE) Blood Type Antibody Screen Crossmatch 01/31/22 01/31/22 01/31/22 Range/Units 04:04 04:04 04:04 WBC 9.34 (4.8-10.8) K/ul RBC 2.88 L (3.93-5.22) M/uL Hgb 7.9 L (12.0-16.0) g/dl Hct 24.6 L (34.1-44.9) % MCV 85.4 (80.0-100.0) fL MCH 27.4 (25.0-34.0) pg MCHC 32.1 (32.0-36.0) g/dL RDW Std Deviation 51.3 H (36.4-46.3) fL RDW Coeff of Amos 16.7 H (11.5-14.5) % Plt Count 190 (130-400) K/uL MPV 11.6 (9.4-12.3) fL Immature Gran % (Auto) % Neut % (Auto) % Lymph % (Auto) % [place] % (Auto) % Eos % (Auto) % Baso % (Auto) % Neut # (Auto) (1.4-6.5) K/uL Lymph # (Auto) (1.2-3.4) K/uL [place] # (Auto) (0.24-0.82) K/uL Eos # (Auto) (0-0.50) K/uL Baso # (Auto) (0-0.2) K/uL Immature Gran # (Auto) (0.00-0.02) K/uL RBC Morphology PT 23.7 H (9.0-12.0) Seconds INR 2.3 H (0.9-1.1) APTT (21.0-31.0) Seconds PTT Ratio Sodium 135 L (136-145) mmol/L Potassium 4.3 (3.5-5.1) mmol/L Chloride 107 (98-107) mmol/L Carbon Dioxide 21 (21-32) mmol/L Anion Gap 7 (3-11) BUN 57 H (6-23) mg/dl Creatinine 1.78 H (0.6-1.2) mg/dl Est Cr Clr Drug Dosing 32.8 ml/min Est GFR ( Amer) 30.7 ml/min Est GFR (Non-Af Amer) 26.5 ml/min BUN/Creatinine Ratio 32.0 H (10-20) Glucose 149 H (70-99(Fasting)) mg/dl POC Glucose (70-99) mg/dl Calcium 8.0 L (8.5-10.1) mg/dl Iron (35-150) mcg/dl Unsaturated IBC (155-355) mcg/dl Total Bilirubin 0.7 (0.2-1.0) mg/dl AST 11 L (13-39) U/L ALT 9 (7-52) U/L Alkaline Phosphatase 89 (34-104) U/L Troponin I High Sens (0-14) pg/ml Total Protein 6.7 (6.0-8.3) gm/dl Albumin 3.3 L (3.4-5.0) gm/dl Globulin 3.4 (2.5-4.0) gm/dl Albumin/Globulin Ratio 1.0 (0.9-2) Vitamin B12 (180-914) pg/ml Folate (>5.38) ng/ml POC Stool Occult Blood (Negative) SARS-CoV-2, RNA, NAAT (NEGATIVE) Blood Type Antibody Screen Crossmatch 01/30/22 01/30/22 01/30/22 Range/Units 22:58 22:51 21:46 WBC (4.8-10.8) K/ul RBC (3.93-5.22) M/uL Hgb (12.0-16.0) g/dl Hct (34.1-44.9) % MCV (80.0-100.0) fL MCH (25.0-34.0) pg MCHC (32.0-36.0) g/dL RDW Std Deviation (36.4-46.3) fL RDW Coeff of Amos (11.5-14.5) % Plt Count (130-400) K/uL MPV (9.4-12.3) fL Immature Gran % (Auto) % Neut % (Auto) % Lymph % (Auto) % [place] % (Auto) % Eos % (Auto) % Baso % (Auto) % Neut # (Auto) (1.4-6.5) K/uL Lymph # (Auto) (1.2-3.4) K/uL [place] # (Auto) (0.24-0.82) K/uL Eos # (Auto) (0-0.50) K/uL Baso # (Auto) (0-0.2) K/uL Immature Gran # (Auto) (0.00-0.02) K/uL RBC Morphology PT (9.0-12.0) Seconds INR (0.9-1.1) APTT (21.0-31.0) Seconds PTT Ratio Sodium (136-145) mmol/L Potassium (3.5-5.1) mmol/L Chloride (98-107) mmol/L Carbon Dioxide (21-32) mmol/L Anion Gap (3-11) BUN (6-23) mg/dl Creatinine (0.6-1.2) mg/dl Est Cr Clr Drug Dosing ml/min Est GFR ( Amer) ml/min Est GFR (Non-Af Amer) ml/min BUN/Creatinine Ratio (10-20) Glucose (70-99(Fasting)) mg/dl POC Glucose 272 H 268 H (70-99) mg/dl Calcium (8.5-10.1) mg/dl Iron (35-150) mcg/dl Unsaturated IBC (155-355) mcg/dl Total Bilirubin (0.2-1.0) mg/dl AST (13-39) U/L ALT (7-52) U/L Alkaline Phosphatase (34-104) U/L Troponin I High Sens 25.9 H (0-14) pg/ml Total Protein (6.0-8.3) gm/dl Albumin (3.4-5.0) gm/dl Globulin (2.5-4.0) gm/dl Albumin/Globulin Ratio (0.9-2) Vitamin B12 (180-914) pg/ml Folate (>5.38) ng/ml POC Stool Occult Blood (Negative) SARS-CoV-2, RNA, NAAT (NEGATIVE) Blood Type Antibody Screen Crossmatch 01/30/22 01/30/22 01/30/22 Range/Units 19:24 19:16 19:16 WBC (4.8-10.8) K/ul RBC (3.93-5.22) M/uL Hgb (12.0-16.0) g/dl Hct (34.1-44.9) % MCV (80.0-100.0) fL MCH (25.0-34.0) pg MCHC (32.0-36.0) g/dL RDW Std Deviation (36.4-46.3) fL RDW Coeff of Amos (11.5-14.5) % Plt Count (130-400) K/uL MPV (9.4-12.3) fL Immature Gran % (Auto) % Neut % (Auto) % Lymph % (Auto) % [place] % (Auto) % Eos % (Auto) % Baso % (Auto) % Neut # (Auto) (1.4-6.5) K/uL Lymph # (Auto) (1.2-3.4) K/uL [place] # (Auto) (0.24-0.82) K/uL Eos # (Auto) (0-0.50) K/uL Baso # (Auto) (0-0.2) K/uL Immature Gran # (Auto) (0.00-0.02) K/uL RBC Morphology PT (9.0-12.0) Seconds INR (0.9-1.1) APTT (21.0-31.0) Seconds PTT Ratio Sodium (136-145) mmol/L Potassium (3.5-5.1) mmol/L Chloride (98-107) mmol/L Carbon Dioxide (21-32) mmol/L Anion Gap (3-11) BUN (6-23) mg/dl Creatinine (0.6-1.2) mg/dl Est Cr Clr Drug Dosing ml/min Est GFR ( Amer) ml/min Est GFR (Non-Af Amer) ml/min BUN/Creatinine Ratio (10-20) Glucose (70-99(Fasting)) mg/dl POC Glucose (70-99) mg/dl Calcium (8.5-10.1) mg/dl Iron 28 L (35-150) mcg/dl Unsaturated IBC 306 (155-355) mcg/dl Total Bilirubin (0.2-1.0) mg/dl AST (13-39) U/L ALT (7-52) U/L Alkaline Phosphatase (34-104) U/L Troponin I High Sens (0-14) pg/ml Total Protein (6.0-8.3) gm/dl Albumin (3.4-5.0) gm/dl Globulin (2.5-4.0) gm/dl Albumin/Globulin Ratio (0.9-2) Vitamin B12 370 (180-914) pg/ml Folate 5.80 (>5.38) ng/ml POC Stool Occult Blood (Negative) SARS-CoV-2, RNA, NAAT (NEGATIVE) Blood Type A Positive Antibody Screen NEGATIVE Crossmatch See Detail 01/30/22 01/30/22 01/30/22 Range/Units 19:16 19:16 19:16 WBC (4.8-10.8) K/ul RBC (3.93-5.22) M/uL Hgb (12.0-16.0) g/dl Hct (34.1-44.9) % MCV (80.0-100.0) fL MCH (25.0-34.0) pg MCHC (32.0-36.0) g/dL RDW Std Deviation (36.4-46.3) fL RDW Coeff of Amos (11.5-14.5) % Plt Count (130-400) K/uL MPV (9.4-12.3) fL Immature Gran % (Auto) % Neut % (Auto) % Lymph % (Auto) % [place] % (Auto) % Eos % (Auto) % Baso % (Auto) % Neut # (Auto) (1.4-6.5) K/uL Lymph # (Auto) (1.2-3.4) K/uL [place] # (Auto) (0.24-0.82) K/uL Eos # (Auto) (0-0.50) K/uL Baso # (Auto) (0-0.2) K/uL Immature Gran # (Auto) (0.00-0.02) K/uL RBC Morphology PT 22.1 H (9.0-12.0) Seconds INR 2.2 H (0.9-1.1) APTT 41.1 H (21.0-31.0) Seconds PTT Ratio 1.5 Sodium 135 L (136-145) mmol/L Potassium 4.2 (3.5-5.1) mmol/L Chloride 104 (98-107) mmol/L Carbon Dioxide 23 (21-32) mmol/L Anion Gap 8 (3-11) BUN 62 H (6-23) mg/dl Creatinine 2.01 H (0.6-1.2) mg/dl Est Cr Clr Drug Dosing 29.5 ml/min Est GFR ( Amer) 26.5 ml/min Est GFR (Non-Af Amer) 22.9 ml/min BUN/Creatinine Ratio 30.8 H (10-20) Glucose 238 H (70-99(Fasting)) mg/dl POC Glucose (70-99) mg/dl Calcium 8.0 L (8.5-10.1) mg/dl Iron (35-150) mcg/dl Unsaturated IBC (155-355) mcg/dl Total Bilirubin 0.3 (0.2-1.0) mg/dl AST 10 L (13-39) U/L ALT 10 (7-52) U/L Alkaline Phosphatase 100 (34-104) U/L Troponin I High Sens 16.4 H (0-14) pg/ml Total Protein 7.3 (6.0-8.3) gm/dl Albumin 3.5 (3.4-5.0) gm/dl Globulin 3.8 (2.5-4.0) gm/dl Albumin/Globulin Ratio 0.9 (0.9-2) Vitamin B12 (180-914) pg/ml Folate (>5.38) ng/ml POC Stool Occult Blood (Negative) SARS-CoV-2, RNA, NAAT NEGATIVE (NEGATIVE) Blood Type Antibody Screen Crossmatch 01/30/22 01/30/22 Range/Units 19:16 19:07 WBC 9.59 (4.8-10.8) K/ul RBC 2.51 L (3.93-5.22) M/uL Hgb 6.7 L* (12.0-16.0) g/dl Hct 21.9 L (34.1-44.9) % MCV 87.3 (80.0-100.0) fL MCH 26.7 (25.0-34.0) pg MCHC 30.6 L (32.0-36.0) g/dL RDW Std Deviation 54.8 H (36.4-46.3) fL RDW Coeff of Amos 17.5 H (11.5-14.5) % Plt Count 212 (130-400) K/uL MPV 11.4 (9.4-12.3) fL Immature Gran % (Auto) 0.5 % Neut % (Auto) 65.7 % Lymph % (Auto) 12.9 % [place] % (Auto) 17.6 % Eos % (Auto) 2.7 % Baso % (Auto) 0.6 % Neut # (Auto) 6.29 (1.4-6.5) K/uL Lymph # (Auto) 1.24 (1.2-3.4) K/uL [place] # (Auto) 1.69 H (0.24-0.82) K/uL Eos # (Auto) 0.26 (0-0.50) K/uL Baso # (Auto) 0.06 (0-0.2) K/uL Immature Gran # (Auto) 0.05 H (0.00-0.02) K/uL RBC Morphology Unremarkable PT (9.0-12.0) Seconds INR (0.9-1.1) APTT (21.0-31.0) Seconds PTT Ratio Sodium (136-145) mmol/L Potassium (3.5-5.1) mmol/L Chloride (98-107) mmol/L Carbon Dioxide (21-32) mmol/L Anion Gap (3-11) BUN (6-23) mg/dl Creatinine (0.6-1.2) mg/dl Est Cr Clr Drug Dosing ml/min Est GFR ( Amer) ml/min Est GFR (Non-Af Amer) ml/min BUN/Creatinine Ratio (10-20) Glucose (70-99(Fasting)) mg/dl POC Glucose (70-99) mg/dl Calcium (8.5-10.1) mg/dl Iron (35-150) mcg/dl Unsaturated IBC (155-355) mcg/dl Total Bilirubin (0.2-1.0) mg/dl AST (13-39) U/L ALT (7-52) U/L Alkaline Phosphatase (34-104) U/L Troponin I High Sens (0-14) pg/ml Total Protein (6.0-8.3) gm/dl Albumin (3.4-5.0) gm/dl Globulin (2.5-4.0) gm/dl Albumin/Globulin Ratio (0.9-2) Vitamin B12 (180-914) pg/ml Folate (>5.38) ng/ml POC Stool Occult Blood Positive A (Negative) SARS-CoV-2, RNA, NAAT (NEGATIVE) Blood Type Antibody Screen Crossmatch PG Care Time/CCT Total # of Minutes Spent Total Time Spent with Patient: Total time spent is greater than 50% in coordination of care (as documented) at patient's floor/unit and/or counseling patient: Coding Level of Care Code 41637 Subseq Hosp Care Lvl 2 Diagnoses GI bleed K92.2 Anemia D64.9 Stress incontinence N39.3 TERESA (acute kidney injury) N17.9 Cognitive disorder F09 HTN (hypertension) I10 Hypothyroidism E03.9 Diabetes mellitus type 2, uncontrolled E11.65 Afib I48.91 Elevated troponin R77.8
--- NOTE | 2022-01-31 15:10 | Electrocardiogram Report ---
Test Reason : Blood Pressure : / mmHG Vent. Rate : 087 BPM Atrial Rate : 076 BPM P-R Int : 000 ms QRS Dur : 066 ms QT Int : 356 ms P-R-T Axes : 000 -20 014 degrees QTc Int : 428 ms Poor data quality, interpretation may be adversely affected Atrial fibrillation Low voltage QRS Old Inferior infarct , age undetermined Old Anterior infarct ST depression in Lateral leads , consider ischemia Abnormal ECG When compared with ECG of 01-NOV-2020 10:00, ST depression in Lateral leads now present Confirmed by Conor Michelle ([id number]) on 01/31/2022 3:10:16 PM Referred By: REFERRED SELF Confirmed By:Conor Michelle
[2022-01-31] MEDS: FOLIC ACID 1 MG TAB PO SCH (16:34)
[2022-01-31] MEDS: IRON SUCROSE 300 MG in SODIUM CHLORIDE 0.9% 250 ML IV SCH (16:53)
[2022-01-31] MEDS ORDERED: INSULIN ASPART PER UNIT SC SCH (21:00)
[2022-02-01] MEDS: TROSPIUM~ORDER AWAITING ACTION SCH ×2 (01:01→08:36)
[2022-02-01] MEDS: LEVOTHYROXINE SODIUM 112 MCG TABLET PO SCH (05:55)
[2022-02-01] MEDS: FOLIC ACID 1 MG TAB PO SCH (08:36)
[2022-02-01] MEDS: CHOLECALCIFEROL 1,000 UNITS 25 MCG TAB PO SCH (08:36)
[2022-02-01] MEDS: ACETAMINOPHEN 500 MG TAB PO SCH ×2 (08:36→21:59)
[2022-02-01] MEDS: METOPROLOL SUCC 25MG EXT REL TAB PO SCH (08:36)
[2022-02-01] MEDS: DOXAZosin MESYLATE TAB 2 MG TAB PO SCH (08:36)
[2022-02-01] MEDS: INSULIN ASPART PER UNIT SC SCH ×4 (08:43→22:07)
[2022-02-01] MEDS: LANTUS PER UNIT CHARGE SQ SCH ×2 (08:43→22:07)
[2022-02-01] MEDS: IRON SUCROSE 300 MG in SODIUM CHLORIDE 0.9% 250 ML IV SCH (08:44)
--- NOTE | 2022-02-01 08:56 | XCELERA ---
[id number]
[2022-02-01 09:09] LABS: Hemoglobin 8.3 g/dl (12.0-16.0); Mean Corpuscular Hemoglobin 27.7 pg (25.0-34.0); Mean Corpuscular Hgb Conc 31.9 g/dL (32.0-36.0); Mean Corpuscular Volume 86.7 fL (80.0-100.0); Mean Platelet Volume 11.2 fL (9.4-12.3); Platelet Count 186 K/uL (130-400); RDW Coefficient of Variation 17.5 % (11.5-14.5); RDW Standard Deviation 53.7 fL (36.4-46.3); White Blood Count 7.84 K/ul (4.8-10.8)
[2022-02-01 09:12] LABS: INR 2.3 (0.9-1.1); Prothrombin Time 23.2 Seconds (9.0-12.0)
[2022-02-01 09:38] LABS: Albumin Globulin Ratio 0.9 (0.9-2); Albumin Level 3.3 gm/dl (3.4-5.0); BUN Creatinine Ratio 24.3 (10-20); Bilirubin,Total 0.6 mg/dl (0.2-1.0); Calcium 8.7 mg/dl (8.5-10.1); Creatinine Clr Calc Pharmacy 38.4 ml/min; Est GFR (African American) 37.1 ml/min; Globulin 3.7 gm/dl (2.5-4.0); Potassium 4.2 mmol/L (3.5-5.1)
--- NOTE | 2022-02-01 17:36 | Hospitalist Progress Note ---
Date of Service February 01, 2022 Assessment & Plan (1) GI bleed: Plan: -Outside labs showing Hgb of 6.3, patient found to be heme + on stool test in the ED. Hgb baseline 11 and normocytic in 05/2021, then 8.5 last week Normocytic Fe studies show Fe deficiency Folate also low at 5, B12 borderline low at 370 Pt reports recent black tarry stools in setting of taking coumadin and recent INR 5.1 in the last week EGD 01/31 negative GI recommending outpt colonoscopy-legal guardian says historically patient refuses to leave the house and will likely never return for outpt colonoscopy (although pt tells me she would) If colonoscopy negative, would pursue capsule endoscopy -transfused 2 units PRBCs and is hemodynamically stable, hgb stable at 8.3 -holding coumadin indefinitely, but would start Eliquis rather than Coumadin once safe to resume AC -follow CBC in AM -no PPI needed as no UGI bleeding -give IV iron daily x 3 days for low Fe sat -started folic acid 1mg po daily -continue to monitor for further melena -strongly recommend outpatient colonoscopy but as per guardian, she will likely never return for this procedure. Perhaps could see if GI can complete on Friday or Friday as an inpatient if still admitted (2) Anemia: Plan: Acute blood loss anemia in setting of chronic anemia as above (3) Stress incontinence: Plan: -Continue doxazosin -on trospium at home but not brought from home and pt declining to have it brought from home Purewick catheter in place (4) TERESA (acute kidney injury): Plan: -Cr at 2.0 on admission, baseline appears to be 1.3 -Likely from dehydration and GI bleed Now improved after PRBC transfusion to 1.5 - continue to hold losartan-hctz -follow BMP in AM -giving lasix for volume overload with abdominal breathing, severe MR, LE edema (5) Afib: Plan: -Currently rate controlled -Continue metoprolol -Hold warfarin for now with GI bleed and anemia -would not restart until anemia improves and has colonoscopy and would do Eliquis as above -check INR again in AM until trends downward as still high at 2.3 (6) Elevated troponin: Plan: -Noted to be 16.4 and then slightly up to 24; patient is asymptomatic -Likely due to demand from GI bleed - ECHO without WMAs but with severe MR, Pulm HTN as above (7) Mitral regurgitation: Plan: severe on ECHO here consult Cardiology will give lasix 20mg IV x 1 (8) Cognitive disorder: Plan: -Patient has a hx of delusional disorder and cognitive impairment and niece is her court appointed guardian-reviewed legal documents scanned into chart Guardian is able to consent for patient to go to a SNF if it is recommended by a medical provider even if patient refuses Reviewed the Neuropsych evaluation from years ago scanned into chart (9) Pulmonary hypertension: Plan: fairly significant RVSP on ECHO, morbid obesity, severe MR diurese given tachypnea, LE edema (10) Diabetes mellitus type 2, uncontrolled: Plan: Last recent HgbA1C elevated at 8.3% but ok for age and comorbidities -Hold metformin -continue 5 units lantus BID -Correction factor of 35 and carb ration of 12 (11) Hypothyroidism: Plan: -Continue levothyroxine recent TSH normal at 2.2 (12) HTN (hypertension): Plan: -Hold losartan-HCTZ with TERESA BPs stable Plan Dispo-continued stay, PT/OT maryals currently recommending home with caregivers if able to meet goals but she is not meeting those goals. She is at HIGH risk for falls given multiple falls in the past. Also refuses to get out of chair at home unless caregiver present so often sits in her wet brief for many hours, at risk for UTIs, skin breakdown. I WOULD DEFINITELY RECOMMEND that pt go to SNF to regain strength and stamina to be able to be left alone at home as she only has caregivers during the daytime. Discussed her care with her legal guardian on the phone again on 01/31 for 30 min. She hasks that we not tell the patient she is going to rehab until she is present to assist with this as pt traditionally has been very averse to going to a SNF. Admission and Anticipated Discharge Date Admission Date: January 30, 2022 Subjective Pt denies BM today. No SOB but appears to have tachypnea with minimal movements. Worked for a few minutes today with PT. Eating. Wants to know when she can go home. Tele with Afib, rates 50-70s Review of Systems Review of Systems: All systems reviewed & are unremarkable except as noted in HPI & below Physical Exam Constitutional: WD/WN, vitals as above + morbidly obese Eyes: + anicteric sclerae Neck: trachea midline, no thyromegaly Respiratory: + tachypneic (with minimal movement at rest, abdominal breathing) Auscultation: + diminished lung sounds (throughout due to body habitus); no crackles, no rhonchi and no wheezes Cardiovascular: Rate/Rhythm: regular rate and + irregularly irregular Heart Sounds: + murmur (2/6 holosystolic murmur LLSB) Extremities: + edema (2+ woody edema legs bilat) Chest (Breasts): Chest: normal inspection of chest Gastrointestinal (Abdomen): Inspection/Auscultation: normal bowel sounds; + abdomen abnormal to inspection (obese) and abdomen not distended Percussion/Palpation: abdomen soft; abdomen nontender and no guarding Musculoskeletal: Extremities: no cyanosis and no clubbing Skin: + rash (chronic venous stasis changes legs bilat) and + dry skin (severe on legs bilat); no erythema Neurologic: moves all extremities and awake; no focal motor deficits Speech / Cognition: normal speech Motor/Sensory: no tremor Psychiatric: Orientation: alert, oriented to person, oriented to place, cooperative and + guarded Results & Data Results & Data ([facility]) Vital Signs (Past 12 Hours) Vital Signs Temp Pulse Pulse Resp BP Pulse Ox Pulse Ox 02/01/22 15:19 36.5 C 61 20 148/62 H 98 02/01/22 14:59 68 02/01/22 13:12 98 02/01/22 11:37 36.4 C L 59 L 20 150/72 H 98 02/01/22 08:00 36.6 C 79 20 150/74 H 94 02/01/22 07:11 70 O2 Del Method O2 Flow Rate 02/01/22 15:19 Room Air 02/01/22 14:59 02/01/22 13:12 0 02/01/22 11:37 Room Air 02/01/22 08:00 Room Air 02/01/22 07:11 Laboratory Results 02/01/22 02/01/22 02/01/22 Range/Units 16:41 11:53 08:26 WBC (4.8-10.8) K/ul RBC (3.93-5.22) M/uL Hgb (12.0-16.0) g/dl Hct (34.1-44.9) % MCV (80.0-100.0) fL MCH (25.0-34.0) pg MCHC (32.0-36.0) g/dL RDW Std Deviation (36.4-46.3) fL RDW Coeff of Amos (11.5-14.5) % Plt Count (130-400) K/uL MPV (9.4-12.3) fL PT 23.2 H (9.0-12.0) Seconds INR 2.3 H (0.9-1.1) Sodium (136-145) mmol/L Potassium (3.5-5.1) mmol/L Chloride (98-107) mmol/L Carbon Dioxide (21-32) mmol/L Anion Gap (3-11) BUN (6-23) mg/dl Creatinine (0.6-1.2) mg/dl Est Cr Clr Drug Dosing ml/min Est GFR ( Amer) ml/min Est GFR (Non-Af Amer) ml/min BUN/Creatinine Ratio (10-20) Glucose (70-99(Fasting)) mg/dl POC Glucose 166 H 195 H (70-99) mg/dl Calcium (8.5-10.1) mg/dl Total Bilirubin (0.2-1.0) mg/dl AST (13-39) U/L ALT (7-52) U/L Alkaline Phosphatase (34-104) U/L Total Protein (6.0-8.3) gm/dl Albumin (3.4-5.0) gm/dl Globulin (2.5-4.0) gm/dl Albumin/Globulin Ratio (0.9-2) 02/01/22 02/01/22 02/01/22 Range/Units 08:26 08:26 07:57 WBC 7.84 (4.8-10.8) K/ul RBC 3.00 L (3.93-5.22) M/uL Hgb 8.3 L (12.0-16.0) g/dl Hct 26.0 L (34.1-44.9) % MCV 86.7 (80.0-100.0) fL MCH 27.7 (25.0-34.0) pg MCHC 31.9 L (32.0-36.0) g/dL RDW Std Deviation 53.7 H (36.4-46.3) fL RDW Coeff of Amos 17.5 H (11.5-14.5) % Plt Count 186 (130-400) K/uL MPV 11.2 (9.4-12.3) fL PT (9.0-12.0) Seconds INR (0.9-1.1) Sodium 137 (136-145) mmol/L Potassium 4.2 (3.5-5.1) mmol/L Chloride 107 (98-107) mmol/L Carbon Dioxide 24 (21-32) mmol/L Anion Gap 6 (3-11) BUN 37 H D (6-23) mg/dl Creatinine 1.52 H (0.6-1.2) mg/dl Est Cr Clr Drug Dosing 38.4 ml/min Est GFR ( Amer) 37.1 ml/min Est GFR (Non-Af Amer) 32.0 ml/min BUN/Creatinine Ratio 24.3 H (10-20) Glucose 152 H (70-99(Fasting)) mg/dl POC Glucose 132 H (70-99) mg/dl Calcium 8.7 (8.5-10.1) mg/dl Total Bilirubin 0.6 (0.2-1.0) mg/dl AST 12 L (13-39) U/L ALT 8 (7-52) U/L Alkaline Phosphatase 84 (34-104) U/L Total Protein 7.0 (6.0-8.3) gm/dl Albumin 3.3 L (3.4-5.0) gm/dl Globulin 3.7 (2.5-4.0) gm/dl Albumin/Globulin Ratio 0.9 (0.9-2) 01/31/22 Range/Units 20:07 WBC (4.8-10.8) K/ul RBC (3.93-5.22) M/uL Hgb (12.0-16.0) g/dl Hct (34.1-44.9) % MCV (80.0-100.0) fL MCH (25.0-34.0) pg MCHC (32.0-36.0) g/dL RDW Std Deviation (36.4-46.3) fL RDW Coeff of Amos (11.5-14.5) % Plt Count (130-400) K/uL MPV (9.4-12.3) fL PT (9.0-12.0) Seconds INR (0.9-1.1) Sodium (136-145) mmol/L Potassium (3.5-5.1) mmol/L Chloride (98-107) mmol/L Carbon Dioxide (21-32) mmol/L Anion Gap (3-11) BUN (6-23) mg/dl Creatinine (0.6-1.2) mg/dl Est Cr Clr Drug Dosing ml/min Est GFR ( Amer) ml/min Est GFR (Non-Af Amer) ml/min BUN/Creatinine Ratio (10-20) Glucose (70-99(Fasting)) mg/dl POC Glucose 134 H (70-99) mg/dl Calcium (8.5-10.1) mg/dl Total Bilirubin (0.2-1.0) mg/dl AST (13-39) U/L ALT (7-52) U/L Alkaline Phosphatase (34-104) U/L Total Protein (6.0-8.3) gm/dl Albumin (3.4-5.0) gm/dl Globulin (2.5-4.0) gm/dl Albumin/Globulin Ratio (0.9-2) PG Care Time/CCT Total # of Minutes Spent Total Time Spent with Patient: Total time spent is greater than 50% in coordination of care (as documented) at patient's floor/unit and/or counseling patient: Coding Level of Care Code 84707 Subseq Hosp Care Lvl 3 Diagnoses GI bleed K92.2 Anemia D64.9 Stress incontinence N39.3 TEERSA (acute kidney injury) N17.9 Afib I48.91 Elevated troponin R77.8 Mitral regurgitation I34.0 Cognitive disorder F09 Pulmonary hypertension I27.20 Diabetes mellitus type 2, uncontrolled E11.65 Hypothyroidism E03.9 HTN (hypertension) I10
[2022-02-01] MEDS ORDERED: FUROSEMIDE INJ 20 MG/2 ML VIAL IV ONE (17:59)
[2022-02-02] MEDS: LEVOTHYROXINE SODIUM 112 MCG TABLET PO SCH (05:32)
[2022-02-02 05:55] LABS: Hematocrit (blood only) 22.6 % (34.1-44.9); Hemoglobin 7.3 g/dl (12.0-16.0); Mean Corpuscular Hemoglobin 27.4 pg (25.0-34.0); Mean Corpuscular Hgb Conc 32.3 g/dL (32.0-36.0); Mean Platelet Volume 11.1 fL (9.4-12.3); Platelet Count 174 K/uL (130-400); RDW Coefficient of Variation 17.5 % (11.5-14.5); RDW Standard Deviation 53.3 fL (36.4-46.3); Red Blood Count 2.66 M/uL (3.93-5.22)
[2022-02-02 06:12] LABS: INR 1.7 (0.9-1.1); Prothrombin Time 17.9 Seconds (9.0-12.0)
[2022-02-02 06:25] LABS: BUN Creatinine Ratio 25.4 (10-20); Calcium 8.2 mg/dl (8.5-10.1); Creatinine Clr Calc Pharmacy 41.1 ml/min; Est GFR (African American) 40.3 ml/min; Est GFR (Non-African American) 34.8 ml/min; Potassium 3.9 mmol/L (3.5-5.1)
[2022-02-02] MEDS ORDERED: SODIUM CHLORIDE 0.9% 250 ML IV PRN (08:28)
[2022-02-02] MEDS ORDERED: FUROSEMIDE INJ 20 MG/2 ML VIAL IV ONE ×2 (08:29→16:03)
[2022-02-02] MEDS: ACETAMINOPHEN 500 MG TAB PO SCH ×2 (09:35→21:17)
[2022-02-02] MEDS: FOLIC ACID 1 MG TAB PO SCH (09:35)
[2022-02-02] MEDS: CHOLECALCIFEROL 1,000 UNITS 25 MCG TAB PO SCH (09:35)
[2022-02-02] MEDS: METOPROLOL SUCC 25MG EXT REL TAB PO SCH (09:35)
[2022-02-02] MEDS: DOXAZosin MESYLATE TAB 2 MG TAB PO SCH (09:36)
[2022-02-02] MEDS: INSULIN ASPART PER UNIT SC SCH ×4 (09:46→21:17)
[2022-02-02] MEDS: LANTUS PER UNIT CHARGE SQ SCH ×2 (09:46→21:16)
[2022-02-02] MEDS: IRON SUCROSE 300 MG in SODIUM CHLORIDE 0.9% 250 ML IV SCH (09:47)
--- NOTE | 2022-02-02 16:02 | Hospitalist Progress Note ---
Date of Service February 02, 2022 Assessment & Plan (1) GI bleed: Plan: -Outside labs showing Hgb of 6.3, patient found to be heme + on stool test in the ED. Hgb baseline 11 and normocytic in 05/2021, then 8.5 1 week prior to admission Normocytic Fe studies show Fe deficiency Folate also low at 5, B12 borderline low at 370 Pt reports recent black tarry stools in setting of taking coumadin and recent INR 5.1 in the last week EGD 01/31 negative GI recommending outpt colonoscopy-legal guardian says historically patient refuses to leave the house and will likely never return for outpt colonoscopy (although pt tells me she would) If colonoscopy negative, would pursue capsule endoscopy -transfused 2 units PRBCs and initially hgb stable at 8.3 -On 02/02, hemoglobin down to 7.3, no melena witnessed, but becoming more tachycardic-transfuse 1 more unit PRBCs -holding coumadin indefinitely, but would start Eliquis rather than Coumadin once safe to resume AC-patient is agreeable to starting Eliquis -follow CBC again in AM -no PPI needed as no UGI bleeding noted on EGD -Gave IV iron daily x 3 days for low transferrin saturation -started folic acid 1mg po daily -continue to monitor for further melena -strongly recommend outpatient colonoscopy but as per guardian, she will likely never return for this procedure, nor would she be able to complete her prep on her own as she has no caregivers in the evenings or at nighttime to help her to the bathroom. Perhaps could see if GI can complete on Friday or Friday as an inpatient if still admitted. If not, if she goes to SNF, she could complete the prep there and return as an outpatient for colonoscopy. (2) Anemia: Plan: Acute blood loss anemia in setting of chronic iron deficiency anemia as above, also with folate deficiency (3) Pulmonary hypertension: Plan: fairly significant elevated RVSP on ECHO, morbid obesity, severe MR With elevated proBNP, tachypnea, LE edema Is diuresing well with Lasix 20 Mg IV and renal function actually improving with diuresis -Continue Lasix 20 Mg IV twice daily -Follow BMP -Consulted cardiology given severe MR -Not requiring supplemental O2 -Changed to low-sodium diet, fluid restrict to 1800 mL/day, daily weights, strict I's and O's (4) TERESA (acute kidney injury): Plan: -Cr at 2.0 on admission, baseline appears to be 1.3 -Likely from GI bleed and in the setting of taking losartan-HCTZ Now improved after PRBC transfusion Creatinine further improved to 1.4 today after beginning IV diuresis suggesting that her volume overload is playing a role in her renal failure Making copious amounts of urine - continue to hold losartan-hctz -Continue diuresis with IV Lasix as above, carefully watching renal function -follow BMP in AM (5) Mitral regurgitation: Plan: severe on ECHO here consult Cardiology-pending Diuresing as above (6) Afib: Plan: -Currently rate controlled with some higher rates on 02/02 possibly due to further GI bleeding with lower hemoglobin -Continue metoprolol -Continue to hold warfarin due to GI bleed and anemia -would not restart until anemia improves and has colonoscopy and would do Eliquis as above -INR is now trended down to 1.7, this was not reversed upon admission -Continue telemetry monitoring (7) Diabetes mellitus type 2, uncontrolled: Plan: Last recent HgbA1C elevated at 8.3% but ok for age and comorbidities -Hold metformin -continue 5 units lantus BID -Correction factor of 35 and carb ration of 12 (8) Hypothyroidism: Plan: -Continue levothyroxine recent TSH normal at 2.2 (9) Elevated troponin: Plan: -Noted to be 16.4 and then slightly up to 24; patient is asymptomatic -Likely due to demand from GI bleed - ECHO without WMAs but with severe MR, Pulm HTN as above (10) HTN (hypertension): Plan: -Hold losartan-HCTZ due to initial TERESA and now diuresing with Lasix Continue doxazosin BPs stable (11) Stress incontinence: Plan: -Continue doxazosin -on trospium at home but not brought from home and pt declining to have it brought from home Purewick catheter in place (12) Cognitive disorder: Plan: -Patient has a hx of delusional disorder and cognitive impairment and niece is her court appointed guardian-reviewed legal documents scanned into chart Guardian is able to consent for patient to go to a SNF if it is recommended by a medical provider even if patient refuses Reviewed the Neuropsych evaluation from years ago scanned into chart Patient is also known to have significant self-neglect as per the guardian. If the caregiver is not present at her home, she will sit in her own feces and urine sometimes all night until the caregiver arrives. She will refuse to shower and practice basic hygiene. She also frequently refuses to go to scheduled doctors appointments. -Due to history of frequent falls, seemingly worsening cognitive impairment, self-neglect, would recommend that she have 24/7 care. This would likely require residential care in an assisted living type situation. Discussed with guardian at length. We will ask PT/OT to reevaluate over the next 1 to 2 days to see if would have a covered skilled need versus private pay at a snf with residential care. Plan Dispo-continued stay, PT/OT marylarry currently recommending home with caregivers if able to meet goals but she is not meeting those goals. She is at HIGH risk for falls given multiple falls in the past. Also refuses to get out of chair at home unless caregiver present so often sits in her wet brief for many hours, at risk for UTIs, skin breakdown. I WOULD DEFINITELY RECOMMEND that pt go to SNF to regain strength and stamina to be able to be left alone at home as she only has caregivers during the daytime. Discussed her care with legal guardian in person outside the room on 02/02 for 35 minutes. She has financial and healthcare power of licensed mental health counselor and the patient is deemed legally incompetent. The patient does have the ability to private pay for residential care if does not meet skilled benefit under her insurance. The patient does not yet know that she is recommended for longterm facility and legal guardian wants to be present when the patient is told this as she will likely become very upset. Admission and Anticipated Discharge Date Admission Date: January 30, 2022 Subjective Patient reports feeling okay but still appears significantly short of breath with abdominal breathing. Did okay with blood transfusion this morning. No bowel movement. Is making plenty of urine in her pure wick catheter after Lasix administration yesterday and today. Denies other concerns. I did asked the patient if she would be agreeable to a DOAC as opposed to Coumadin in the future and she said she would be. Telemetry with atrial fibrillation with rates in the 90s to 100s had a 6 beat and 9 beat run of VT I had approximately a 30-minute conversation with her legal guardian in person outside of the room regarding the patient's care. She continues to report that the patient has had multiple falls at home with caregivers present and when not present. Review of Systems Review of Systems: All systems reviewed & are unremarkable except as noted in HPI & below Physical Exam Constitutional: WD/WN, vitals as above + morbidly obese Eyes: + anicteric sclerae Neck: trachea midline, no thyromegaly Respiratory: + tachypneic (with minimal movement at rest, abdominal breathing) Auscultation: + diminished lung sounds (throughout due to body habitus); no crackles, no rhonchi and no wheezes Cardiovascular: Rate/Rhythm: regular rate and + irregularly irregular Heart Sounds: + murmur (2/6 holosystolic murmur LLSB) Extremities: + edema (2+ woody edema legs bilat, slightly improved) Chest (Breasts): Chest: normal inspection of chest Gastrointestinal (Abdomen): Inspection/Auscultation: normal bowel sounds; + abdomen abnormal to inspection (obese) and abdomen not distended Percussion/Palpation: abdomen soft; abdomen nontender and no guarding Musculoskeletal: Extremities: no cyanosis and no clubbing Skin: + rash (chronic venous stasis changes legs bilat) and + dry skin (severe on legs bilat); no erythema Neurologic: moves all extremities and awake; no focal motor deficits Speech / Cognition: normal speech Motor/Sensory: no tremor Psychiatric: Orientation: alert, oriented to person, oriented to place, cooperative and + guarded Results & Data Results & Data ([facility]) Vital Signs (Past 12 Hours) Vital Signs Temp Pulse Pulse Resp BP BP Pulse Ox 02/02/22 15:41 58 L 02/02/22 15:35 36.6 C 60 18 126/67 95 02/02/22 13:55 36.7 C 63 18 115/53 L 99 02/02/22 12:55 36.4 C 68 20 146/96 H 94 02/02/22 11:55 37.0 C 61 18 145/72 H 95 02/02/22 11:25 36.5 C 69 18 148/83 H 93 02/02/22 11:25 36.4 C 95 H 20 155/77 H 96 02/02/22 11:10 36.9 C 71 18 149/79 H 93 02/02/22 10:49 36.7 C 72 18 143/82 H 98 02/02/22 07:46 36.9 C 73 19 159/79 H 95 02/02/22 07:30 93 H O2 Del Method 02/02/22 15:41 02/02/22 15:35 Room Air 02/02/22 13:55 02/02/22 12:55 02/02/22 11:55 02/02/22 11:25 02/02/22 11:25 02/02/22 11:10 02/02/22 10:49 02/02/22 07:46 Room Air 02/02/22 07:30 Laboratory Results 02/02/22 02/02/22 02/02/22 Range/Units 20:29 16:03 11:37 WBC (4.8-10.8) K/ul RBC (3.93-5.22) M/uL Hgb (12.0-16.0) g/dl Hct (34.1-44.9) % MCV (80.0-100.0) fL MCH (25.0-34.0) pg MCHC (32.0-36.0) g/dL RDW Std Deviation (36.4-46.3) fL RDW Coeff of Amos (11.5-14.5) % Plt Count (130-400) K/uL MPV (9.4-12.3) fL PT (9.0-12.0) Seconds INR (0.9-1.1) Sodium (136-145) mmol/L Potassium (3.5-5.1) mmol/L Chloride (98-107) mmol/L Carbon Dioxide (21-32) mmol/L Anion Gap (3-11) BUN (6-23) mg/dl Creatinine (0.6-1.2) mg/dl Est Cr Clr Drug Dosing ml/min Est GFR ( Amer) ml/min Est GFR (Non-Af Amer) ml/min BUN/Creatinine Ratio (10-20) Glucose (70-99(Fasting)) mg/dl POC Glucose 155 H 104 H 195 H (70-99) mg/dl Calcium (8.5-10.1) mg/dl B-Natriuretic Peptide (0-100) pg/ml Blood Type Blood Type Recheck Antibody Screen Crossmatch 02/02/22 02/02/22 02/02/22 Range/Units 07:48 05:50 05:35 WBC (4.8-10.8) K/ul RBC (3.93-5.22) M/uL Hgb (12.0-16.0) g/dl Hct (34.1-44.9) % MCV (80.0-100.0) fL MCH (25.0-34.0) pg MCHC (32.0-36.0) g/dL RDW Std Deviation (36.4-46.3) fL RDW Coeff of Amos (11.5-14.5) % Plt Count (130-400) K/uL MPV (9.4-12.3) fL PT (9.0-12.0) Seconds INR (0.9-1.1) Sodium 136 (136-145) mmol/L Potassium 3.9 (3.5-5.1) mmol/L Chloride 107 (98-107) mmol/L Carbon Dioxide 23 (21-32) mmol/L Anion Gap 6 (3-11) BUN 36 H (6-23) mg/dl Creatinine 1.42 H (0.6-1.2) mg/dl Est Cr Clr Drug Dosing 41.1 ml/min Est GFR ( Amer) 40.3 ml/min Est GFR (Non-Af Amer) 34.8 ml/min BUN/Creatinine Ratio 25.4 H (10-20) Glucose 140 H (70-99(Fasting)) mg/dl POC Glucose 159 H (70-99) mg/dl Calcium 8.2 L (8.5-10.1) mg/dl B-Natriuretic Peptide (0-100) pg/ml Blood Type Blood Type Recheck A Positive Antibody Screen Crossmatch 02/02/22 02/02/22 02/02/22 Range/Units 05:35 05:35 05:35 WBC 9.30 (4.8-10.8) K/ul RBC 2.66 L (3.93-5.22) M/uL Hgb 7.3 L (12.0-16.0) g/dl Hct 22.6 L (34.1-44.9) % MCV 85.0 (80.0-100.0) fL MCH 27.4 (25.0-34.0) pg MCHC 32.3 (32.0-36.0) g/dL RDW Std Deviation 53.3 H (36.4-46.3) fL RDW Coeff of Amos 17.5 H (11.5-14.5) % Plt Count 174 (130-400) K/uL MPV 11.1 (9.4-12.3) fL PT 17.9 H (9.0-12.0) Seconds INR 1.7 H (0.9-1.1) Sodium (136-145) mmol/L Potassium (3.5-5.1) mmol/L Chloride (98-107) mmol/L Carbon Dioxide (21-32) mmol/L Anion Gap (3-11) BUN (6-23) mg/dl Creatinine (0.6-1.2) mg/dl Est Cr Clr Drug Dosing ml/min Est GFR ( Amer) ml/min Est GFR (Non-Af Amer) ml/min BUN/Creatinine Ratio (10-20) Glucose (70-99(Fasting)) mg/dl POC Glucose (70-99) mg/dl Calcium (8.5-10.1) mg/dl B-Natriuretic Peptide 272 H (0-100) pg/ml Blood Type Blood Type Recheck Antibody Screen Crossmatch 01/30/22 Range/Units 19:24 WBC (4.8-10.8) K/ul RBC (3.93-5.22) M/uL Hgb (12.0-16.0) g/dl Hct (34.1-44.9) % MCV (80.0-100.0) fL MCH (25.0-34.0) pg MCHC (32.0-36.0) g/dL RDW Std Deviation (36.4-46.3) fL RDW Coeff of Amos (11.5-14.5) % Plt Count (130-400) K/uL MPV (9.4-12.3) fL PT (9.0-12.0) Seconds INR (0.9-1.1) Sodium (136-145) mmol/L Potassium (3.5-5.1) mmol/L Chloride (98-107) mmol/L Carbon Dioxide (21-32) mmol/L Anion Gap (3-11) BUN (6-23) mg/dl Creatinine (0.6-1.2) mg/dl Est Cr Clr Drug Dosing ml/min Est GFR ( Amer) ml/min Est GFR (Non-Af Amer) ml/min BUN/Creatinine Ratio (10-20) Glucose (70-99(Fasting)) mg/dl POC Glucose (70-99) mg/dl Calcium (8.5-10.1) mg/dl B-Natriuretic Peptide (0-100) pg/ml Blood Type A Positive Blood Type Recheck Antibody Screen NEGATIVE Crossmatch See Detail PG Care Time/CCT Total # of Minutes Spent Total Time Spent with Patient: Total time spent is greater than 50% in coordination of care (as documented) at patient's floor/unit and/or counseling patient: Coding Level of Care Code 56326 Subseq Hosp Care Lvl 3 Diagnoses GI bleed K92.2 Anemia D64.9 Pulmonary hypertension I27.20 TERESA (acute kidney injury) N17.9 Mitral regurgitation I34.0 Afib I48.91 Diabetes mellitus type 2, uncontrolled E11.65 Hypothyroidism E03.9 Elevated troponin R77.8 HTN (hypertension) I10 Stress incontinence N39.3 Cognitive disorder F09
[2022-02-03] MEDS: LEVOTHYROXINE SODIUM 112 MCG TABLET PO SCH (05:37)
[2022-02-03 06:51] LABS: BUN Creatinine Ratio 28.5 (10-20); Calcium 8.2 mg/dl (8.5-10.1); Creatinine Clr Calc Pharmacy 41.9 ml/min; Est GFR (African American) 42.1 ml/min; Est GFR (Non-African American) 36.3 ml/min; Magnesium 1.6 mg/dl (1.7-2.4); Potassium 3.9 mmol/L (3.5-5.1)
[2022-02-03] MEDS: INSULIN ASPART PER UNIT SC SCH ×4 (08:25→20:49)
[2022-02-03] MEDS: MAGNESIUM SULFATE / D5W 1 GM/100 ML BAG IV SCH ×2 (08:25→10:42)
[2022-02-03] MEDS: ACETAMINOPHEN 500 MG TAB PO SCH ×2 (08:25→20:48)
[2022-02-03] MEDS: FUROSEMIDE INJ 20 MG/2 ML VIAL IV SCH ×2 (08:26→17:03)
[2022-02-03] MEDS: FOLIC ACID 1 MG TAB PO SCH (08:26)
[2022-02-03] MEDS: METOPROLOL SUCC 25MG EXT REL TAB PO SCH (08:26)
[2022-02-03] MEDS: LANTUS PER UNIT CHARGE SQ SCH ×2 (08:26→20:49)
[2022-02-03] MEDS: DOXAZosin MESYLATE TAB 2 MG TAB PO SCH (08:26)
[2022-02-03] MEDS: CHOLECALCIFEROL 1,000 UNITS 25 MCG TAB PO SCH (08:26)
[2022-02-03 09:56] LABS: Hematocrit (blood only) 25.6 % (34.1-44.9); Hemoglobin 8.3 g/dl (12.0-16.0); Mean Corpuscular Hemoglobin 28.2 pg (25.0-34.0); Mean Corpuscular Hgb Conc 32.4 g/dL (32.0-36.0); Mean Corpuscular Volume 87.1 fL (80.0-100.0); Mean Platelet Volume 11.3 fL (9.4-12.3); Platelet Count 188 K/uL (130-400); RDW Coefficient of Variation 17.7 % (11.5-14.5); Red Blood Count 2.94 M/uL (3.93-5.22)
--- NOTE | 2022-02-03 10:28 | Cardiology Consultation ---
Date of Consultation February 03, 2022 Assessment & Plan (1) Mitral regurgitation: (2) Afib: (3) Chronic anticoagulation: (4) Acute GI bleeding: (5) HTN (hypertension): (6) Pulmonary hypertension: Plan 1. Mitral regurgitation: Although she has severe mitral regurgitation she does not seem to have symptoms clearly attributable to it. She does have longstanding shortness of breath but has other reasons for it and she tells me it is not much different now. She does have longstanding edema which could be related to elevated right-sided pressures which could also be due to her mitral regurgitation but that does not seem to be different recently. I do not think it is clearly indicated to further evaluate her mitral regurgitation and when I discussed it with her she would prefer not to have anything done unless absolutely necessary. Repairing or replacing the valve would be a major undertaking and at this point I would recommend observation. 2. Atrial fibrillation: She has permanent atrial fibrillation, rate however is adequately controlled and she is asymptomatic. I would continue with her current treatment. 3. Anticoagulation: She will need anticoagulation over the long run, I would recommend Eliquis not warfarin when it is safe to restart. 4. GI bleed: This is still under investigation, if she is to remain off of anticoagulation until this is evaluated I would encourage this to be done quickly so she does not stay off of anticoagulation for a long period of time and increase the risk of stroke. 5. Hypertension: Her blood pressure is well controlled currently 6. Pulmonary hypertension: She does have pulmonary hypertension, her right heart however is functioning adequately but it may increase her right atrial pressure and may contribute to edema. That is very chronic however and I do not believe there is much we could do about it. I do not think specific evaluation of her pulmonary hypertension as a primary finding is indicated. History of Present Illness Reason for Consultation: Mitral regurgitation, atrial fibrillation Attending Physician: Santos Lima History of Present Illness This is an 81-year-old woman who has a cognitive disorder for which she has a court appointed guardian. She has a history of atrial fibrillation and is on warfarin, she has longstanding lower extremity edema as well has diabetes and chronic kidney disease. She presented to the emergency room on January 30, 2022 when her hemoglobin dropped significantly, her hemoglobin generally ran around 11 when last checked June 06, 2021 until being 8.1 on January 25, 2022 and 6.3 on January 30, 2022. She has been transfused. Her INR was 5.1 on January 25, 2022, most recently it has dropped to 1.7. She has had an EGD which did not identify a source and I believe a colonoscopy is planned. An echocardiogram done January 30, 2022 shows normal left ventricular size and function on a technically limited study. She does have mild concentric left ventricular hypertrophy, severe mitral regurgitation and left atrium is moderately dilated. She does have elevated right ventricular systolic pressure of 50 to 60 mmHg. There is not appear to be her prior study for comparison. Her electrocardiogram from January 30, 2022 shows atrial fibrillation with a heart rate of 87 bpm and low voltage QRS. She does have inferior and anterolateral Q waves. These findings have been present before. At the time of my evaluation she was resting comfortably in bed. She denies s ymptoms of orthopnea but does not generally lay flat, she does not have a change in her shortness of breath but does have dyspnea on exertion which is chronic. She has chronic edema but does not notice a change recently. Allergies Allergy/AdvReac Type Severity Reaction Status Date / Time Penicillins Allergy Intermediate Hives Verified 01/30/22 20:05 cefuroxime [From Ceftin] AdvReac Intermediate Diarrhea Verified 01/30/22 20:05 pioglitazone AdvReac Intermediate Fluid Verified 01/30/22 20:05 retention Home Medications Medication Instructions Recorded Confirmed Type cholecalciferol (vitamin D3) 50 50 mcg PO DAILY #30 caps 09/11/20 01/30/22 Rx mcg (2,000 unit) capsule tramadol 50 mg tablet 25 mg PO DAILY PRN pain #15 tabs 09/20/20 01/30/22 Rx doxazosin 2 mg tablet 2 mg PO QAM #90 tabs 02/13/21 01/30/22 Rx metoprolol succinate 25 mg 25 mg PO QAM #90 tabs 06/20/21 01/30/22 Rx tablet,extended release 24 hr acetaminophen 500 mg tablet 1,000 mg PO BID Pain 06/21/21 01/30/22 History (Tylenol Extra Strength) metformin 500 mg tablet,extended 500 mg PO BID #180 tabs 10/12/21 01/30/22 Rx release 24 hr levothyroxine 112 mcg tablet 112 mcg PO QAM #90 tabs 11/08/21 01/30/22 Rx trospium 20 mg tablet 20 mg PO HS #90 tabs 12/12/21 01/30/22 Rx losartan 100 1 tab PO QAM #90 tabs 12/13/21 01/30/22 Rx mg-hydrochlorothiazide 25 mg tablet (Hyzaar) ciprofloxacin HCl 250 mg tablet 250 mg PO BID 5 days #10 tabs 01/24/22 01/30/22 Rx warfarin 5 mg tablet 5 mg PO QPM 01/25/22 01/30/22 History Patient History Medical History Afib Dx a long time ago, taking warfarin Follows with medical doctor (Hilary JI) Rate controlled at 08/2020 PCP appt CKD (chronic kidney disease), stage III Closed fracture of left proximal humerus 2019- no surgical intervention needed Cognitive disorder Diabetes mellitus type 2, uncontrolled Glucose well controlled Dyslipidemia 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 Hypertension Hypothyroidism Mitral regurgitation Nephrolithiasis, uric acid Hx of and had surgery Pulmonary hypertension Sciatica Urge incontinence Surgical History H/O total knee replacement right and left History of appendectomy History of bilateral cataract extraction History of total abdominal hysterectomy and bilateral salpingo-oophorectomy History of tubal ligation Hx of lithotripsy Family History Father Diabetes Hypertension Emphysema, unspecified Mother Hypertension Myocardial infarction Sister Alzheimer disease Hypertension Denies family history of Ovarian cancer Prostate cancer Breast cancer Lung cancer Colorectal cancer Social History Smoking Status: Never smoker Age Started Using Tobacco: 17; Age Quit Using Tobacco: 21; packs per day: 1; Second Hand Exposure: No; Hx Alcohol Use: Yes Alcohol type: wine Alcohol Intake Frequency: 4 or More x per/Week Hx Substance Use: No Preferred Language: Cypriot Communication Ability: Effective Visual Impairment: Limited Hearing Ability: Normal Route Relief Driver Required: No Beliefs That Will Affect Care: None marital status: Single Current Living Situation: Alone current occupational status: retired Feels Safe at Home: Yes Childhood Exposure to Second-Hand Smoke: No caffeine: Yes Dental Care, Regularly: Yes Physical Activity Frequency: Does not Exercise Seatbelt Use: always Sunscreen Use: Yes Assistive Devices: Cane and Contacts Review of Systems Review of Systems: All systems reviewed & are unremarkable except as noted in HPI & below Ecchymosis while on Coumadin Results & Data ([facility]) Vital Signs (Past 12 Hours) Vital Signs Temp Pulse Pulse Resp BP BP Pulse Ox 02/03/22 09:41 02/03/22 09:35 76 02/03/22 07:52 36.6 C 70 19 147/80 H 93 02/03/22 03:42 36.4 C L 71 18 149/70 H 95 02/02/22 22:36 O2 Del Method 02/03/22 09:41 Room Air 02/03/22 09:35 02/03/22 07:52 Room Air 02/03/22 03:42 Room Air 02/02/22 22:36 Room Air Laboratory Results CBC 02/03/22 Range/Units 05:54 WBC 8.30 (4.8-10.8) K/ul RBC 2.94 L (3.93-5.22) M/uL Hgb 8.3 L (12.0-16.0) g/dl Hct 25.6 L (34.1-44.9) % Plt Count 188 (130-400) K/uL Comprehensive Metabolic Panel 02/03/22 Range/Units 05:54 Sodium 136 (136-145) mmol/L Potassium 3.9 (3.5-5.1) mmol/L Chloride 106 (98-107) mmol/L Carbon Dioxide 23 (21-32) mmol/L BUN 39 H (6-23) mg/dl Creatinine 1.37 H (0.6-1.2) mg/dl Glucose 117 H (70-99(Fasting)) mg/dl Calcium 8.2 L (8.5-10.1) mg/dl Intake and Output 02/02/22 02/03/22 02/03/22 22:59 06:59 14:59 Intake Total 525 / 1830 200 / 1830 Output Total 2400 / 4000 900 / 4000 Balance -1875 / -2170 -700 / -2170 Intake: Oral 525 / 1255 200 / 1255 Output: Urine Amount (Catheter) 2400 / 4000 900 / 4000 External 2400 / 4000 900 / 4000 Other: Weight 113.5 kg Weight Measurement Method Standing Scale Diagnostic Findings Telemetry: Atrial fibrillation, heart rate ranging 50 to 70 bpm. PG Care Time/CCT Total # of Minutes Spent Total Time Spent with Patient: Total time spent is greater than 50% in coordination of care (as documented) at patient's floor/unit and/or counseling patient: Coding Level of Care Code 45811 Initial Inpt Care Lvl 3 Diagnoses Mitral regurgitation I34.0 Cardiac valve disease etiology: etiology unspecified Afib I48.21 Atrial fibrillation type: permanent Chronic anticoagulation Z79.01 Acute GI bleeding K92.2 HTN (hypertension) I10 Hypertension type: primary hypertension Pulmonary hypertension I27.20 (1) Afib Atrial fibrillation type: permanent Qualified Code(s): I48.21 - Permanent atrial fibrillation (2) Mitral regurgitation Cardiac valve disease etiology: etiology unspecified Qualified Code(s): I34.0 - Nonrheumatic mitral (valve) insufficiency (3) HTN (hypertension) Hypertension type: primary hypertension Qualified Code(s): I10 - Essential (primary) hypertension
--- NOTE | 2022-02-03 17:00 | Hospitalist Progress Note ---
Date of Service February 03, 2022 Assessment & Plan (1) GI bleed: Plan: Hb 6.3 at time of admission. Stool was heme+. Previously her Hb was 8.1 on 01/25/22, and in 05/2021 she had hemoglobin of about 11 (baseline). s/p 3 units of PRBCs since admission. Today's hemoglobin = 8.3. EGD by Dr Song, [facility] [place] [facility] - 01/31 - negative/no source of bleeding. Colonoscopy recommended; timing uncertain - outpatient? inpatient? Anticoagulation (coumadin) on hold. CBC in am. If H/H continue to trend down will ask [facility] [place] [facility] to consider performing colonoscopy while hospitalized. (2) Acute blood loss anemia: Plan: 2nd to #1 above. s/p 3 units PRBCs while here. see above. (3) Anemia: Plan: multifactorial - acute blood loss anemia, chronic Fe deficiency (ferritin 51), folate deficiency (5), B12 (370). s/p 3 units PRBCs, 3 runs of IV venofer, folate replacement. Will also add oral B12 in addition to thiamine. CBC in am. See #1 above. (4) Acute diastolic CHF (congestive heart failure): Plan: 2nd to PRBCs, etc. lasix 20mg IV BID bmp am volume status improving (5) Pulmonary hypertension: Plan: severe on echo this admission. 2nd to severe MR? 2nd to sleep-disordered breathing? other cause? (6) TERESA (acute kidney injury): Plan: Peak Cr 2, now 1.3 today TERESA 2nd to poor renal perfusion from #1?? (7) Mitral regurgitation: Plan: severe on echo appreciate [facility] [place] [facility] -- surgical intervention not advised at this time her valve disease will need to be monitored carefully by cardiology (8) Afib: Plan: controlled cont metoprolol holding anticoagulation due to #1 above (9) Diabetes mellitus type 2, uncontrolled: Plan: Most recent HgbA1C elevated at 8.3% but ok for age and comorbidities Cont lantus BID Cont novolog SSI BSGs acceptable at this time (10) Hypothyroidism: Plan: Continue levothyroxine Recent TSH normal at 2.2 (11) Elevated troponin: Plan: 2nd to myocardial demand ischemia no Rx needed (12) HTN (hypertension): Plan: Cont to hold losartan Cont to hold HCTZ remains on alpha rd and metoprolol (13) Stress incontinence: Plan: Continue doxazosin She takes trospium at home but the med is not available Could consider oxybutinin in beulah Purewick catheter in place for now (14) Cognitive disorder: Plan: Patient has a h/o of delusional disorder and cognitive impairment and her niece is her court appointed guardian Guardian is able to consent for patient to go to a SNF if it is recommended by a medical provider even if patient refuses Patient also with poor self-care, frequent falls, poor insight/judgement, etc - and lives alone Dispo - SNF or [facility] would be best await PT/OT vito discussed plan of care with Vaishnavi MORALES (15) Chronic renal failure, stage 3b: Plan: baseline CrCl 30s/low 40s BMP stable today (16) Morbid obesity with BMI of 40.0-44.9, adult: Plan: BMI 40 Plan I updated Ms Roldan by phone this evening The patient has not been told that SNF is recommended for her post-discharge. ANDREW wishes to be present for that conversation as Ms Roldan is concerned patient will be agitated. Admission and Anticipated Discharge Date Admission Date: January 30, 2022 Subjective patient without complaints during the visit denies any BRBPR today or melena denies any abdominal pain with eating some mild dyspnea with moving around has this at home as well - chronic making copious urine with lasix IV (purewick in place) tele - a.fib, rates controlled Review of Systems Review of Systems: gen - weak, fatigued cv - no chest pain pulm - no cough, mild wheezing abd - no nausea or emesis Physical Exam Physical Exam: gen - NAD, obese, lying in bed comfortably; moving about in the bed caused mild dyspnea neck - mild JVD present mouth - MM slightly dry heart - irregularly irregular, s1 s2, 2/6 holosystolic murmur LLSB lungs - mild end-exp wheeze, fine/faint dry rales bases, no distress abd - soft obese ND NT ext - <1+ edema b/l, pulses 2+ b/l psych - awake, alert skin - mild stasis changes b/l shins Results & Data Results & Data ([facility]) Vital Signs (Past 12 Hours) Vital Signs Temp Pulse Pulse Resp BP Pulse Ox O2 Del Method 02/03/22 15:32 37.0 C 63 20 118/62 94 Room Air 02/03/22 11:32 36.5 C 62 19 139/80 94 Room Air 02/03/22 09:41 Room Air 02/03/22 09:35 76 02/03/22 07:52 36.6 C 70 19 147/80 H 93 Room Air Laboratory Results Laboratory Results - last 24 hr 01/30/22 02/02/22 02/03/22 19:24 20:29 05:54 WBC 8.30 RBC 2.94 L Hgb 8.3 L Hct 25.6 L MCV 87.1 MCH 28.2 MCHC 32.4 RDW Std Deviation 54.0 H RDW Coeff of Amos 17.7 H Plt Count 188 MPV 11.3 Sodium Potassium Chloride Carbon Dioxide Anion Gap BUN Creatinine Est Cr Clr Drug Dosing Est GFR ( Amer) Est GFR (Non-Af Amer) BUN/Creatinine Ratio Glucose POC Glucose 155 H Calcium Magnesium Whole Bld Vitamin B1 Crossmatch See Detail 02/03/22 02/03/22 02/03/22 05:54 05:54 07:41 WBC RBC Hgb Hct MCV MCH MCHC RDW Std Deviation RDW Coeff of Amos Plt Count MPV Sodium 136 Potassium 3.9 Chloride 106 Carbon Dioxide 23 Anion Gap 7 BUN 39 H Creatinine 1.37 H Est Cr Clr Drug Dosing 41.9 Est GFR ( Amer) 42.1 Est GFR (Non-Af Amer) 36.3 BUN/Creatinine Ratio 28.5 H Glucose 117 H POC Glucose 131 H Calcium 8.2 L Magnesium 1.6 L Whole Bld Vitamin B1 Pending Crossmatch 02/03/22 02/03/22 11:40 16:26 WBC RBC Hgb Hct MCV MCH MCHC RDW Std Deviation RDW Coeff of Amos Plt Count MPV Sodium Potassium Chloride Carbon Dioxide Anion Gap BUN Creatinine Est Cr Clr Drug Dosing Est GFR ( Amer) Est GFR (Non-Af Amer) BUN/Creatinine Ratio Glucose POC Glucose 234 H 109 H Calcium Magnesium Whole Bld Vitamin B1 Crossmatch PG Care Time/CCT Total # of Minutes Spent Total Time Spent with Patient: Total time spent is greater than 50% in coordination of care (as documented) at patient's floor/unit and/or counseling patient: Coding Level of Care Code 82868 Subseq Hosp Care Lvl 3 Diagnoses GI bleed K92.2 Acute blood loss anemia D62 Anemia D64.9 Acute diastolic CHF (congestive heart failure) I50.31 Pulmonary hypertension I27.20 TERESA (acute kidney injury) N17.9 Mitral regurgitation I34.0 Cardiac valve disease etiology: etiology unspecified Afib I48.21 Atrial fibrillation type: permanent Diabetes mellitus type 2, uncontrolled E11.65 Hypothyroidism E03.9 Elevated troponin R77.8 HTN (hypertension) I10 Hypertension type: primary hypertension Stress incontinence N39.3 Cognitive disorder F09 Chronic renal failure, stage 3b N18.32 Morbid obesity with BMI of 40.0-44.9, adult E66.01; Z68.41 (1) Afib Atrial fibrillation type: permanent Qualified Code(s): I48.21 - Permanent atrial fibrillation (2) Mitral regurgitation Cardiac valve disease etiology: etiology unspecified Qualified Code(s): I34.0 - Nonrheumatic mitral (valve) insufficiency (3) HTN (hypertension) Hypertension type: primary hypertension Qualified Code(s): I10 - Essential (primary) hypertension
[2022-02-03] MEDS: THIAMINE HCL 100 MG TAB PO SCH (20:48)
[2022-02-04] MEDS: LEVOTHYROXINE SODIUM 112 MCG TABLET PO SCH (05:30)
[2022-02-04 07:39] LABS: Hematocrit (blood only) 26.3 % (34.1-44.9); Hemoglobin 8.6 g/dl (12.0-16.0); Mean Corpuscular Hemoglobin 28.2 pg (25.0-34.0); Mean Corpuscular Hgb Conc 32.7 g/dL (32.0-36.0); Mean Corpuscular Volume 86.2 fL (80.0-100.0); Mean Platelet Volume 11.4 fL (9.4-12.3); Platelet Count 191 K/uL (130-400); Red Blood Count 3.05 M/uL (3.93-5.22); White Blood Count 10.03 K/ul (4.8-10.8)
[2022-02-04 08:04] LABS: BUN Creatinine Ratio 26.4 (10-20); Calcium 8.3 mg/dl (8.5-10.1); Creatinine Clr Calc Pharmacy 40.9 ml/min; Est GFR (Non-African American) 35.4 ml/min; Magnesium 1.8 mg/dl (1.7-2.4); Potassium 3.6 mmol/L (3.5-5.1)
[2022-02-04] MEDS: INSULIN ASPART PER UNIT SC SCH ×4 (08:10→20:28)
[2022-02-04] MEDS: FOLIC ACID 1 MG TAB PO SCH (08:11)
[2022-02-04] MEDS: THIAMINE HCL 100 MG TAB PO SCH ×2 (08:11→20:27)
[2022-02-04] MEDS: FUROSEMIDE INJ 20 MG/2 ML VIAL IV SCH ×2 (08:11→17:45)
[2022-02-04] MEDS: METOPROLOL SUCC 25MG EXT REL TAB PO SCH (08:11)
[2022-02-04] MEDS: ACETAMINOPHEN 500 MG TAB PO SCH ×2 (08:11→20:27)
[2022-02-04] MEDS: DOXAZosin MESYLATE TAB 2 MG TAB PO SCH (08:11)
[2022-02-04] MEDS: CHOLECALCIFEROL 1,000 UNITS 25 MCG TAB PO SCH (08:11)
[2022-02-04] MEDS: LANTUS PER UNIT CHARGE SQ SCH ×2 (08:12→20:31)
--- NOTE | 2022-02-04 09:38 | Gastroenterology Progress Note ---
Date of Service February 04, 2022 Assessment & Plan (1) Symptomatic anemia: (2) Occult GI bleeding: Plan 1. Clear liquid diet with fluid restriction. 2. MiraLAX bowel preparation this evening. 3. NPO after midnight except sips with meds. 4. Colonoscopy tomorrow with Dr. Drew for further evaluation. 5. Further reccs pending results of testing. Admission and Anticipated Discharge Date Admission Date: January 30, 2022 Subjective GI reconsulted today regarding worsening anemia over the weekend requiring a blood transfusion. Hemoglobin this morning was noted to be 8.6. She is status post EGD by Dr. Song. Discussion has been made about diagnostic colonoscopy for further evaluation of acute blood loss anemia. Patient denies any abdominal pain. Tolerating diet. Review of Systems Constitutional: no problem reported Gastrointestinal: as per Subjective / HPI Physical Exam Constitutional: WD/WN, vitals as above Respiratory: normal respiratory effort, lungs clear to auscultation Cardiovascular: Rate/Rhythm: regular rate and regular rhythm Heart Sounds: + murmur Gastrointestinal (Abdomen): Inspection/Auscultation: + hyperactive bowel sounds Percussion/Palpation: abdomen soft; abdomen nontender Musculoskeletal: no pedal edema Psychiatric: A+Ox3, euthymic affect Results & Data Results & Data ([facility]) Vital Signs (Past 12 Hours) Vital Signs Temp Pulse Pulse Resp BP BP Pulse Ox 02/04/22 07:48 36.8 C 82 20 172/76 H 93 02/04/22 07:08 72 02/04/22 04:21 36.4 C L 75 20 165/82 H 95 02/03/22 22:16 36.5 C 77 18 150/75 H 93 02/03/22 22:12 70 O2 Del Method 02/04/22 07:48 Room Air 02/04/22 07:08 02/04/22 04:21 Room Air 02/03/22 22:16 Room Air 02/03/22 22:12 PG Care Time/CCT Total # of Minutes Spent Total Time Spent with Patient: Total time spent is greater than 50% in coordination of care (as documented) at patient's floor/unit and/or counseling patient: Coding Level of Care Code 64647 Subseq Hosp Care Lvl 3 Diagnoses Symptomatic anemia D64.9 Occult GI bleeding R19.5
[2022-02-04] MEDS: LOSARTAN POTASSIUM 50 MG TAB PO SCH (09:46)
[2022-02-04] MEDS: MAGNESIUM OXIDE 400 MG TAB PO SCH (09:47)
--- NOTE | 2022-02-04 10:32 | XRay Report ---
TWO VIEW CHEST CLINICAL HISTORY: Pulmonary edema. FINDINGS: AP and lateral chest radiographs are compared to study dated 11/01/2020 and correlated with chest CT dated 10/10/2008. The AP view is degraded by apical lordotic positioning. The heart is enlarg ed noting atherosclerotic calcification of the thoracic aorta. There is pulmonary vascular congestion . Interstitial thickening and mild bilateral airspace opacities could represent mild pulmonary edema. There is eventration of the left hemidiaphragm with bibasilar atelectasis. No large pleural effusion or pneumothorax is seen. The skeletal structures are osteopenic. There is chronic posttraumatic defo rmity of the left proximal humerus. IMPRESSION: 1. Cardiomegaly with evidence of congestive failure. 2. Interstitial thickening and scattered bilateral airspace opacities may represent mild pulmonary ed dean. Clinical correlation will be required. 3. No large pleural effusion is seen. ACT 112: Negative or not required by law. Electronically signed by: Jerel Pompa M.D. 02/04/2022 10:31 AM
[2022-02-04] MEDS ORDERED: POLYETHYLENE (MIRALAX) 17 GM PACK PO SCH (18:00)
--- NOTE | 2022-02-04 19:21 | Hospitalist Progress Note ---
Date of Service February 04, 2022 Assessment & Plan (1) GI bleed: Plan: Hb 6.3 at time of admission. Stool was heme+. Previously her Hb was 8.1 on 01/25/22, and in 05/2021 she had hemoglobin of about 11 (baseline). s/p 3 units of PRBCs since admission. s/p 3 runs of IV venofer while here. Today's hemoglobin = 8.6. EGD by Dr Song, [facility] - 01/[place] - negative/no source of bleeding. Anticoagulation (coumadin) on hold. CBC in am again. I spoke with Ms Hays from the [facility] team. Explained that over the weekend her H/H had trended down again and she needed another unit of blood. Also discussed the probable difficulties and coordination of getting a co lonoscopy on her as outpatient -- prep would be near impossible more than likely, patient likely to refuse an outpatient scope, etc. Ms Hays stated we can proceed with prep tonight for colonoscopy tomorrow. I informed the pt's POA by telephone this evening of pending colonoscopy for tomorrow. (2) Acute blood loss anemia: Plan: 2nd to #1 above. s/p 3 units PRBCs while here. see above. (3) Anemia: Plan: multifactorial - acute blood loss anemia, chronic Fe deficiency (ferritin 51), folate deficiency (5), B12 (370). s/p 3 units PRBCs, 3 runs of IV venofer, folate replacement. Add B12. CBC in am. See #1 above. (4) Acute diastolic CHF (congestive heart failure): Plan: 2nd to PRBCs, ?severe MR, etc. cxr confirms pulm edema COPIOUS diuresis while here - 15+ pound weight loss at minimum. cont lasix 20mg IV BID bmp am mag am "Dry" weight is uncertain -- the 113kg listed today is her lowest weight documented in 4+ years she overall looks good today with no pulmonary symptoms (5) Pulmonary hypertension: Plan: severe on echo this admission. 2nd to severe MR? 2nd to sleep-disordered breathing? other cause? (6) TERESA (acute kidney injury): Plan: Peak Cr 2, now 1.4 today suspect TERESA 2nd to poor renal perfusion from #1 can't rule out volume overloaded state also contributing to TERESA but less likely (7) Mitral regurgitation: Plan: severe on echo appreciate [facility] -- surgical intervention not advised at this time her valve disease will need to be monitored carefully by cardiology as outpatient poor surgical candidate (8) Afib: Plan: controlled cont metoprolol holding anticoagulation due to #1 above (9) Diabetes mellitus type 2, uncontrolled: Plan: Most recent HgbA1C elevated at 8.3% Cont novolog SSI Cont lantus BID BSGs acceptable at this time (10) Hypothyroidism: Plan: Continue levothyroxine Recent TSH normal at 2.2 (11) Elevated troponin: Plan: 2nd to myocardial demand ischemia no Rx needed (12) HTN (hypertension): Plan: Cont to hold losartan Cont to hold HCTZ remains on alpha rd and metoprolol BPs acceptable (13) Stress incontinence: Plan: Continue doxazosin She takes trospium at home but the med is not available Could consider oxybutinin in beulah Purewick catheter in place for now (14) Chronic renal failure, stage 3b: Plan: baseline CrCl 30s/low 40s BMP stable today once again (15) Morbid obesity with BMI of 40.0-44.9, adult: Plan: BMI 40 (16) Cognitive disorder: Plan: Patient has a h/o of delusional disorder and cognitive impairment and her niece is her court appointed guardian Guardian is able to consent for patient to go to a SNF if it is recommended by a medical provider even if patient refuses Patient also with poor self-care, frequent falls, poor insight/judgement, etc - and lives alone Dispo - SNF or [facility] would be best PT/OT discussed plan of care with Vaishnavi Roldan - ANDREW Plan I updated Ms Roldan by phone this evening once again she is aware of colonoscopy tomorrow The patient has not been told that SNF is recommended for her post-discharge. ANDREW wishes to be present for that conversation as Ms Roldan is concerned patient will be agitated. Admission and Anticipated Discharge Date Admission Date: January 30, 2022 Subjective patient w/o any new complaints she is aware that we are performing colonoscopy tomorrow and prep will be tonight she is not thrilled to be prepping; she said "I had a colonoscopy a long time ago and do the Cologuard - they've all been normal" I explained we were performing c-scope not so much for colon cancer detection but to look for source of her bleeding she voiced understanding denies any dyspnea denies cough states "my breathing has been like this for years" no new issues overnight Review of Systems Review of Systems: cv - no chest pain pulm - denies dyspnea at rest; no PND GI - no overt BRBPR or melena stools gen - eating well Physical Exam Physical Exam: gen - NAD, obese, lying in bed comfortably, looks same as yesterday neck - no obvious JVD today mouth - MM slightly dry heart - irregularly irregular, s1 s2, 2/6 holosystolic murmur LLSB lungs - scant end-exp wheeze today - scattered; rales resolved; mild tachypnea when she moves around but no distress abd - soft obese ND NT ext - trace edema b/l, pulses 2+ b/l psych - awake, alert skin - mild stasis changes b/l shins Results & Data Results & Data ([facility]) Vital Signs (Past 12 Hours) Vital Signs Temp Pulse Pulse Resp BP BP Pulse Ox 02/04/22 18:35 36.6 C 70 18 132/61 98 02/04/22 16:00 68 02/04/22 15:13 36.7 C 65 18 123/57 L 96 02/04/22 14:54 59 L 02/04/22 11:36 36.6 C 59 L 18 134/83 94 02/04/22 10:07 02/04/22 07:48 36.8 C 82 20 172/76 H 93 O2 Del Method 02/04/22 18:35 Room Air 02/04/22 16:00 02/04/22 15:13 Room Air 02/04/22 14:54 02/04/22 11:36 Room Air 02/04/22 10:07 Room Air 02/04/22 07:48 Room Air Laboratory Results Laboratory Results - last 24 hr 02/03/22 02/03/22 02/03/22 05:54 05:54 20:13 WBC RBC Hgb Hct MCV MCH MCHC RDW Std Deviation RDW Coeff of Amos Plt Count MPV Sodium Potassium Chloride Carbon Dioxide Anion Gap BUN Creatinine Est Cr Clr Drug Dosing Est GFR ( Amer) Est GFR (Non-Af Amer) BUN/Creatinine Ratio Glucose POC Glucose 150 H Calcium Magnesium Vitamin B1 Pending Whole Bld Vitamin B1 Cancelled 02/04/22 02/04/22 02/04/22 07:24 07:24 07:36 WBC 10.03 RBC 3.05 L Hgb 8.6 L Hct 26.3 L MCV 86.2 MCH 28.2 MCHC 32.7 RDW Std Deviation 54.0 H RDW Coeff of Maos 18.0 H Plt Count 191 MPV 11.4 Sodium 138 Potassium 3.6 Chloride 103 Carbon Dioxide 28 Anion Gap 7 BUN 37 H Creatinine 1.40 H Est Cr Clr Drug Dosing 40.9 Est GFR ( Amer) 41.0 Est GFR (Non-Af Amer) 35.4 BUN/Creatinine Ratio 26.4 H Glucose 144 H POC Glucose 149 H Calcium 8.3 L Magnesium 1.8 Vitamin B1 Whole Bld Vitamin B1 02/04/22 02/04/22 11:45 16:37 WBC RBC Hgb Hct MCV MCH MCHC RDW Std Deviation RDW Coeff of Amos Plt Count MPV Sodium Potassium Chloride Carbon Dioxide Anion Gap BUN Creatinine Est Cr Clr Drug Dosing Est GFR ( Amer) Est GFR (Non-Af Amer) BUN/Creatinine Ratio Glucose POC Glucose 188 H 119 H Calcium Magnesium Vitamin B1 Whole Bld Vitamin B1 PG Care Time/CCT Total # of Minutes Spent Total Time Spent with Patient: Total time spent is greater than 50% in coordination of care (as documented) at patient's floor/unit and/or counseling patient: Coding Level of Care Code 01526 Subseq Hosp Care Lvl 3 Diagnoses GI bleed K92.2 Acute blood loss anemia D62 Anemia D64.9 Acute diastolic CHF (congestive heart failure) I50.31 Pulmonary hypertension I27.20 TERESA (acute kidney injury) N17.9 Mitral regurgitation I34.0 Cardiac valve disease etiology: etiology unspecified Afib I48.21 Atrial fibrillation type: permanent Diabetes mellitus type 2, uncontrolled E11.65 Hypothyroidism E03.9 Elevated troponin R77.8 HTN (hypertension) I10 Hypertension type: primary hypertension Stress incontinence N39.3 Chronic renal failure, stage 3b N18.32 Morbid obesity with BMI of 40.0-44.9, adult E66.01; Z68.41 Cognitive disorder F09 (1) Afib Atrial fibrillation type: permanent Qualified Code(s): I48.21 - Permanent atrial fibrillation (2) Mitral regurgitation Cardiac valve disease etiology: etiology unspecified Qualified Code(s): I34.0 - Nonrheumatic mitral (valve) insufficiency (3) HTN (hypertension) Hypertension type: primary hypertension Qualified Code(s): I10 - Essential (primary) hypertension
[2022-02-05] MEDS ORDERED: POLYETHYLENE (MIRALAX) 17 GM PACK PO SCH (03:00)
[2022-02-05] MEDS: LEVOTHYROXINE SODIUM 112 MCG TABLET PO SCH (05:42)
[2022-02-05] MEDS ORDERED: INSULIN ASPART PER UNIT SC SCH (06:00)
[2022-02-05 08:20] LABS: Hematocrit (blood only) 27.3 % (34.1-44.9); Hemoglobin 8.8 g/dl (12.0-16.0); Mean Corpuscular Hemoglobin 28.8 pg (25.0-34.0); Mean Corpuscular Hgb Conc 32.2 g/dL (32.0-36.0); Mean Corpuscular Volume 89.2 fL (80.0-100.0); Platelet Count 190 K/uL (130-400); RDW Coefficient of Variation 18.6 % (11.5-14.5); RDW Standard Deviation 55.8 fL (36.4-46.3); Red Blood Count 3.06 M/uL (3.93-5.22); White Blood Count 10.67 K/ul (4.8-10.8)
[2022-02-05] MEDS: LANTUS PER UNIT CHARGE SQ SCH ×2 (08:21→21:09)
[2022-02-05] MEDS: DOXAZosin MESYLATE TAB 2 MG TAB PO SCH (08:22)
[2022-02-05] MEDS: THIAMINE HCL 100 MG TAB PO SCH ×2 (08:22→21:10)
[2022-02-05] MEDS: FOLIC ACID 1 MG TAB PO SCH (08:22)
[2022-02-05] MEDS: MAGNESIUM OXIDE 400 MG TAB PO SCH (08:22)
[2022-02-05] MEDS: LOSARTAN POTASSIUM 50 MG TAB PO SCH (08:22)
[2022-02-05] MEDS: METOPROLOL SUCC 25MG EXT REL TAB PO SCH (08:22)
[2022-02-05] MEDS: ACETAMINOPHEN 500 MG TAB PO SCH ×2 (08:22→21:10)
[2022-02-05] MEDS: FUROSEMIDE INJ 20 MG/2 ML VIAL IV SCH ×2 (08:23→17:38)
[2022-02-05] MEDS: CHOLECALCIFEROL 1,000 UNITS 25 MCG TAB PO SCH (08:23)
--- NOTE | 2022-02-05 08:55 | History & Physical Bridge Note ---
Date of Service February 05, 2022 History & Physical Bridge Note I have examined the patient, reviewed the History & Physical and in the interval since the performance of the History & Physical I have noted the following changes of clinical significance: Per nursing, patient is passing brown liquid and some dark solid stool. Patient denies any abdominal pain or other complaints. H&H stable. PE: A&Ox3. Lungs CTA bilaterally. RRR. grade III systolic murmur. Abdomen soft, hyperactive bowel sounds. Nontender. A/P: Acute blood loss anemia. -NPO for now. -Proceed with colonoscopy by Dr. Drew today. -Further reccs pending results of testing. Supervising Physician Co-Signing Physician Notes Agree with HARDEEP Pemberton as above Abd: Soft, NT, ND, +BS Continue current therapy and supportive care Proceed with colonoscopy today
[2022-02-05] MEDS ORDERED: PROPOFOL IV EMULSION 10 MG/ML 20 ML VIAL IV ONE ×2 (09:29→10:07)
[2022-02-05] MEDS ORDERED: LIDOCAINE 2% MPF LOCAL 5 ML VIAL INFIL ONE (09:30)
[2022-02-05 10:01] LABS: BUN Creatinine Ratio 23.8 (10-20); Calcium 8.3 mg/dl (8.5-10.1); Est GFR (African American) 46.6 ml/min; Est GFR (Non-African American) 40.2 ml/min; Magnesium 1.7 mg/dl (1.7-2.4); Potassium 3.8 mmol/L (3.5-5.1)
[2022-02-05] MEDS ORDERED: PHENYLEPHRINE 100MCG/ML 5ML SYR ONE (10:13)
--- NOTE | 2022-02-05 10:25 | GI REPORT ---
Patient Name: Luana Agrawal Procedure Date: 02/05/2022 9:26 AM Date of : 1940 Admit Type: Inpatient Age: 81 Gender: Female Attending MD: See Drew DO, Procedure: Colonoscopy Providers: See Drew DO Referring MD: Santos Lima Indications: Acute post hemorrhagic anemia Medicines: Monitored Anesthesia Care Complications: No immediate complications. Estimated Blood Loss: Estimated blood loss: none. Procedure: Pre-Anesthesia Assessment: - Prior to the procedure, a History and Physical was performed, and patient medications and allergies were reviewed. The patient's tolerance of previous anesthesia was also reviewed. The risks and benefits of the procedure and the sedation options and risks were discussed with the patient. All questions were answered, and informed consent was obtained. Prior Anticoagulants: The patient has taken Coumadin (warfarin), last dose was 6 days prior to procedure. ASA Grade Assessment: III - A patient with severe systemic disease. After reviewing the risks and benefits, the patient was deemed in satisfactory condition to undergo the procedure. After I obtained informed consent, the scope was passed under direct vision. Throughout the procedure, the patient's blood pressure, pulse, and oxygen saturations were monitored continuously. The Colonoscope was introduced through the anus and advanced to the cecum, identified by appendiceal orifice and ileocecal valve. The colonoscopy was performed without difficulty. The patient tolerated the procedure well. The quality of the bowel preparation was fair. The ileocecal valve, appendiceal orifice, and rectum were photographed. Findings: The perianal and digital rectal examinations were normal. Multiple small-mouthed diverticula were found in the sigmoid colon. Non-bleeding internal hemorrhoids were found during retroflexion. The hemorrhoids were small. Impression: - Preparation of the colon was fair. - Diverticulosis in the sigmoid colon. - Non-bleeding internal hemorrhoids. - No specimens collected. Recommendation: - [facility]. - Resume previous diet. - Continue present medications. See Drew DO 02/05/2022 10:24:42 AM This report has been signed electronically. Note Initiated On: 02/05/2022 9:26 AM Number of Addenda: 0 I attest to the content of the Intraoperative Record and orders documented therein, exceptions below {[id number]}
[2022-02-05] MEDS ORDERED: Nursing to Pharmacy Communication SCH (11:00)
[2022-02-05] MEDS: INSULIN ASPART PER UNIT SC SCH ×3 (12:57→21:09)
[2022-02-05] MEDS: NYSTATIN POWDER 15GM BTL EXT SCH ×2 (12:59→21:10)
--- NOTE | 2022-02-05 14:22 | Anesthesiology Progress Note ---
Date of Service February 05, 2022 Anesthesia Post Procedure Vital Signs Vital Signs: Temp Pulse Pulse Resp BP BP Pulse Ox 02/05/22 12:00 36.4 C L 71 20 140/59 L 95 02/05/22 10:41 79 18 116/63 96 02/05/22 10:26 75 18 134/58 L 97 02/05/22 10:11 71 18 117/49 L 94 02/05/22 08:00 02/05/22 09:16 36.8 C 72 20 132/53 L 97 02/05/22 08:09 36.8 C 74 20 154/72 H 95 02/05/22 07:15 68 02/05/22 04:37 36.6 C 65 18 119/56 L 96 02/04/22 21:59 60 02/04/22 23:40 36.8 C 75 20 123/71 94 02/04/22 21:38 02/04/22 18:35 36.6 C 70 18 132/61 98 02/04/22 16:00 68 02/04/22 15:13 36.7 C 65 18 123/57 L 96 02/04/22 14:54 59 L O2 Del Method 02/05/22 12:00 Room Air 02/05/22 10:41 Room Air 02/05/22 10:26 Room Air 02/05/22 10:11 Room Air 02/05/22 08:00 Room Air 02/05/22 09:16 Room Air 02/05/22 08:09 Room Air 02/05/22 07:15 02/05/22 04:37 Room Air 02/04/22 21:59 02/04/22 23:40 Room Air 02/04/22 21:38 Room Air 02/04/22 18:35 Room Air 02/04/22 16:00 02/04/22 15:13 Room Air 02/04/22 14:54 Transfer of Care Handoff Completed per policy Notes Mental Status: alert / awake / arousable and participated in evaluation Patient Amnestic to Procedure: Yes Nausea / Vomiting: adequately controlled Pain: adequately controlled Airway Patency, RR, SpO2: stable & adequate BP & HR: stable & adequate Hydration State: stable & adequate Anesthetic Complications: no major complications apparent and Pt Satisfied with anesthetic care
[2022-02-06] MEDS: LEVOTHYROXINE SODIUM 112 MCG TABLET PO SCH (06:00)
[2022-02-06 06:22] LABS: Hematocrit (blood only) 25.6 % (34.1-44.9); Hemoglobin 8.1 g/dl (12.0-16.0); Mean Corpuscular Hemoglobin 28.3 pg (25.0-34.0); Mean Corpuscular Hgb Conc 31.6 g/dL (32.0-36.0); Mean Corpuscular Volume 89.5 fL (80.0-100.0); Mean Platelet Volume 10.8 fL (9.4-12.3); Platelet Count 172 K/uL (130-400); RDW Coefficient of Variation 18.7 % (11.5-14.5); RDW Standard Deviation 58.8 fL (36.4-46.3); Red Blood Count 2.86 M/uL (3.93-5.22); White Blood Count 10.88 K/ul (4.8-10.8)
[2022-02-06 06:42] LABS: BUN Creatinine Ratio 21.7 (10-20); Creatinine Clr Calc Pharmacy 39.3 ml/min; Est GFR (Non-African American) 34.5 ml/min; Potassium 3.4 mmol/L (3.5-5.1)
[2022-02-06] MEDS: LOSARTAN POTASSIUM 50 MG TAB PO SCH (08:49)
[2022-02-06] MEDS: ACETAMINOPHEN 500 MG TAB PO SCH ×2 (08:49→21:33)
[2022-02-06] MEDS: DOXAZosin MESYLATE TAB 2 MG TAB PO SCH (08:49)
[2022-02-06] MEDS: FOLIC ACID 1 MG TAB PO SCH (08:50)
[2022-02-06] MEDS: THIAMINE HCL 100 MG TAB PO SCH ×2 (08:50→21:32)
[2022-02-06] MEDS: METOPROLOL SUCC 25MG EXT REL TAB PO SCH (08:51)
[2022-02-06] MEDS: MAGNESIUM OXIDE 400 MG TAB PO SCH (08:51)
[2022-02-06] MEDS: CHOLECALCIFEROL 1,000 UNITS 25 MCG TAB PO SCH (08:51)
[2022-02-06] MEDS: INSULIN ASPART PER UNIT SC SCH ×4 (08:52→21:32)
[2022-02-06] MEDS: LANTUS PER UNIT CHARGE SQ SCH ×2 (08:58→21:32)
[2022-02-06] MEDS: NYSTATIN POWDER 15GM BTL EXT SCH ×3 (08:58→21:33)
--- NOTE | 2022-02-06 09:48 | Hospitalist Progress Note ---
Date of Service February 05, 2022 Assessment & Plan (1) GI bleed: Plan: Hb 6.3 at time of admission. Stool was heme+. Previously her Hb was 8.1 on 01/25/22, and in 05/2021 she had hemoglobin of about 11 (baseline). s/p 3 units of PRBCs since admission. s/p 3 runs of IV venofer while here. Today's hemoglobin = 8.6. EGD by Dr Song, [facility] - 01/31 - negative/no source of bleeding. s/p colonoscopy today by Dr Drew - diverticular disease (sigmoid) & hemorrhoids but no active bleeding or source of bleed Anticoagulation (coumadin) on hold. CBC in am again. capsule endoscopy as outpatient? if H/H drop again would obtain nuclear bleeding scan (2) Acute blood loss anemia: Plan: 2nd to #1 above. s/p 3 units PRBCs while here. see above. (3) Anemia: Plan: multifactorial - acute blood loss anemia, chronic Fe deficiency (ferritin 51), folate deficiency (5), B12 (370). s/p 3 units PRBCs, 3 runs of IV venofer, folate replacement. Add B12. CBC in am. See #1 above. (4) Acute diastolic CHF (congestive heart failure): Plan: appears to be approaching euvolemia stop IV lasix after tonight's dose probably over to PO lasix tomorrow (40mg day) (5) Pulmonary hypertension: Plan: severe on echo this admission. 2nd to severe MR? 2nd to sleep-disordered breathing? other cause? (6) TERESA (acute kidney injury): Plan: Peak Cr 2, now 1.4 suspect TERESA 2nd to poor renal perfusion from #1 can't rule out volume overloaded state also contributing to TERESA but less likely (7) Mitral regurgitation: Plan: severe on echo appreciate [facility] -- surgical intervention not advised at this time her valve disease will need to be monitored carefully by cardiology as outpatient poor surgical candidate (8) Afib: Plan: controlled cont metoprolol holding anticoagulation due to #1 above (9) Diabetes mellitus type 2, uncontrolled: Plan: Most recent HgbA1C elevated at 8.3% Cont novolog SSI Cont lantus BID BSGs acceptable at this time (10) Hypothyroidism: Plan: Continue levothyroxine Recent TSH normal at 2.2 (11) Elevated troponin: Plan: 2nd to myocardial demand ischemia no Rx needed (12) HTN (hypertension): Plan: Cont to hold losartan Cont to hold HCTZ remains on alpha rd and metoprolol BPs acceptable (13) Stress incontinence: Plan: Continue doxazosin She takes trospium at home but the med is not available Could consider oxybutinin in beulah Purewick catheter in place for now (14) Chronic renal failure, stage 3b: Plan: baseline CrCl 30s/low 40s BMP stable today once again (15) Morbid obesity with BMI of 40.0-44.9, adult: Plan: BMI 40 (16) Cognitive disorder: Plan: Patient has a h/o of delusional disorder and cognitive impairment and her niece is her court appointed guardian Guardian is able to consent for patient to go to a SNF if it is recommended by a medical provider even if patient refuses Patient also with poor self-care, frequent falls, poor insight/judgement, etc - and lives alone Dispo - SNF or [facility] be best PT/OT discussed plan of care with Vaishnavi MORALES - multiple times over last few days Plan The patient has not been told that SNF is recommended for her post-discharge. ANDREW wishes to be present for that conversation as Ms Roldan is concerned patient will be agitated. Will attempt to have that conversation tomorrow. Admission and Anticipated Discharge Date Admission Date: January 30, 2022 Subjective saw patient post-colonoscopy ate lunch and did fine with it during her prep had no melena or BRBPR per staff no abd pain breathing is comfortable continues with copious diuresis asks "when am I going home??" Physical Exam Physical Exam: gen - NAD, obese, lying in bed comfortably, looks good neck - no obvious JVD today mouth - MMM heart - irregularly irregular, s1 s2, 2/6 holosystolic murmur LLSB lungs - CTA b/l abd - soft obese ND NT ext - no edema b/l, pulses 2+ b/l psych - awake, alert skin - mild stasis changes b/l shins Results & Data Results & Data ([facility]) Vital Signs (Past 12 Hours) Vital Signs Temp Pulse Pulse Resp BP BP Pulse Ox 02/06/22 09:00 36.5 C 76 16 167/76 H 95 02/06/22 06:55 70 12/21/22 02:59 36.6 C 72 18 157/68 H 95 02/05/22 22:26 78 02/06/22 00:28 02/05/22 22:16 37.4 C 71 18 132/62 92 O2 Del Method 02/06/22 09:00 Room Air 02/06/22 06:55 02/06/22 02:59 Room Air 02/05/22 22:26 02/06/22 00:28 Room Air 02/05/22 22:16 Room Air Laboratory Results Laboratory Results - last 48 hr 02/03/22 02/04/22 02/04/22 05:54 11:45 16:37 WBC RBC Hgb Hct MCV MCH MCHC RDW Std Deviation RDW Coeff of Amos Plt Count MPV Sodium Potassium Chloride Carbon Dioxide Anion Gap BUN Creatinine Est Cr Clr Drug Dosing Est GFR ( Amer) Est GFR (Non-Af Amer) BUN/Creatinine Ratio Glucose POC Glucose 188 H 119 H Calcium Magnesium Whole Bld Vitamin B1 Cancelled 02/04/22 02/05/22 02/05/22 20:09 05:43 08:01 WBC 10.67 RBC 3.06 L Hgb 8.8 L Hct 27.3 L MCV 89.2 MCH 28.8 MCHC 32.2 RDW Std Deviation 55.8 H RDW Coeff of Amos 18.6 H Plt Count 190 MPV 11.0 Sodium Potassium Chloride Carbon Dioxide Anion Gap BUN Creatinine Est Cr Clr Drug Dosing Est GFR ( Amer) Est GFR (Non-Af Amer) BUN/Creatinine Ratio Glucose POC Glucose 104 H 130 H Calcium Magnesium Whole Bld Vitamin B1 02/05/22 02/05/22 02/05/22 08:01 12:00 16:58 WBC RBC Hgb Hct MCV MCH MCHC RDW Std Deviation RDW Coeff of Amos Plt Count MPV Sodium 137 Potassium 3.8 Chloride 102 Carbon Dioxide 29 Anion Gap 6 BUN 30 H Creatinine 1.26 H Est Cr Clr Drug Dosing 45.0 Est GFR ( Amer) 46.6 Est GFR (Non-Af Amer) 40.2 BUN/Creatinine Ratio 23.8 H Glucose 134 H POC Glucose 147 H 156 H Calcium 8.3 L Magnesium 1.7 Whole Bld Vitamin B1 02/05/22 20:13 WBC RBC Hgb Hct MCV MCH MCHC RDW Std Deviation RDW Coeff of Amos Plt Count MPV Sodium Potassium Chloride Carbon Dioxide Anion Gap BUN Creatinine Est Cr Clr Drug Dosing Est GFR ( Amer) Est GFR (Non-Af Amer) BUN/Creatinine Ratio Glucose POC Glucose 253 H Calcium Magnesium Whole Bld Vitamin B1 PG Care Time/CCT Total # of Minutes Spent Total Time Spent with Patient: Total time spent is greater than 50% in coordination of care (as documented) at patient's floor/unit and/or counseling patient: Coding Level of Care Code 34635 Subseq Hosp Care Lvl 2 Diagnoses GI bleed K92.2 Acute blood loss anemia D62 Anemia D64.9 Acute diastolic CHF (congestive heart failure) I50.31 Pulmonary hypertension I27.20 TERESA (acute kidney injury) N17.9 Mitral regurgitation I34.0 Cardiac valve disease etiology: etiology unspecified Afib I48.21 Atrial fibrillation type: permanent Diabetes mellitus type 2, uncontrolled E11.65 Hypothyroidism E03.9 Elevated troponin R77.8 HTN (hypertension) I10 Hypertension type: primary hypertension Stress incontinence N39.3 Chronic renal failure, stage 3b N18.32 Morbid obesity with BMI of 40.0-44.9, adult E66.01; Z68.41 Cognitive disorder F09 (1) Mitral regurgitation Cardiac valve disease etiology: etiology unspecified Qualified Code(s): I34.0 - Nonrheumatic mitral (valve) insufficiency (2) Afib Atrial fibrillation type: permanent Qualified Code(s): I48.21 - Permanent atrial fibrillation (3) HTN (hypertension) Hypertension type: primary hypertension Qualified Code(s): I10 - Essential (primary) hypertension
[2022-02-06] MEDS: FUROSEMIDE 40 MG TAB PO SCH (10:10)
[2022-02-06] MEDS: POTASSIUM CHLORIDE CRTAB 20 MEQ TABCR PO SCH ×2 (10:11→21:33)
--- NOTE | 2022-02-06 20:19 | Hospitalist Progress Note ---
Date of Service February 06, 2022 Assessment & Plan (1) GI bleed: Plan: Hb 6.3 at time of admission. Stool was heme+. Previously her Hb was 8.1 on 01/25/22, and in 05/2021 she had hemoglobin of about 11 (baseline). s/p 3 units of PRBCs since admission. s/p 3 runs of IV venofer while here. Today's hemoglobin = 8.1 - but no evidence of any bleeding GI-garcias. EGD by Dr Song [facility] - 01/31 - negative/no source of bleeding. s/p colonoscopy by Dr Drew - diverticular disease (sigmoid) & hemorrhoids but no active bleeding or source of bleed Anticoagulation (coumadin) on hold. CBC in am again. will likely give 1 more run of Venofer IV in am. capsule endoscopy as outpatient? if H/H drop again would obtain nuclear bleeding scan (2) Acute blood loss anemia: Plan: 2nd to #1 above. s/p 3 units PRBCs while here. see above. (3) Anemia: Plan: multifactorial - acute blood loss anemia, chronic Fe deficiency (ferritin 51), folate deficiency (5), B12 (370). s/p 3 units PRBCs, 3 runs of IV venofer, folate and b12 replacement. Give another run of IV Fe in am. CBC in am. See #1 above. (4) Acute diastolic CHF (congestive heart failure): Plan: euvolemic 25+ pounds of weight loss during the stay IV lasix d/c lasix 40mg po qam BMP am (5) Pulmonary hypertension: Plan: severe on echo this admission. 2nd to severe MR? 2nd to sleep-disordered breathing? other cause? (6) TERESA (acute kidney injury): Plan: Peak Cr 2 - resolved suspect TERESA 2nd to poor renal perfusion from #1 can't rule out volume overloaded state also contributing to TERESA but less likely (7) Mitral regurgitation: Plan: severe on echo appreciate [facility] -- surgical intervention not advised at this time her valve disease will need to be monitored carefully by cardiology as outpatient poor surgical candidate (8) Afib: Plan: controlled cont metoprolol holding anticoagulation due to #1 above would hold at least 1 more week or longer at rehab (9) Diabetes mellitus type 2, uncontrolled: Plan: Most recent HgbA1C elevated at 8.3% Cont novolog SSI Cont lantus BID BSGs acceptable at this time resume metformin at d/c (10) Hypothyroidism: Plan: Continue levothyroxine Recent TSH normal at 2.2 (11) Elevated troponin: Plan: 2nd to myocardial demand ischemia no Rx needed (12) HTN (hypertension): Plan: resume losartan Cont to hold HCTZ remains on alpha rd and metoprolol BPs acceptable (13) Stress incontinence: Plan: Continue doxazosin She takes trospium at home but the med is not available Could consider oxybutinin in beulah Purewick catheter in place for now (14) Chronic renal failure, stage 3b: Plan: baseline CrCl 30s/low 40s BMP stable today once again repeat BMP am (15) Morbid obesity with BMI of 40.0-44.9, adult: Plan: BMI 40 (16) Cognitive disorder: Plan: Patient has a h/o of delusional disorder and cognitive impairment and her niece is her court appointed guardian Guardian is able to consent for patient to go to a SNF if it is recommended by a medical provider even if patient refuses Patient also with poor self-care, frequent falls, poor insight/judgement, etc - and lives alone Dispo - SNF or [facility] would be best PT/OT discussed plan of care with Vaishnavi MORALES - multiple times over last few days including today at bedside Plan patient agreeable to SNF placement discussed with pt & Vaishnavi her POSuly social work aware d/c tomorrow? Admission and Anticipated Discharge Date Admission Date: January 30, 2022 Subjective no events overnight tolerating meals s/p colonoscopy yesterday no stool since her bowel prep for c-scope no N/V/abd pain no dyspnea her POA Hiwot and I spoke with Ms Agrawal about rehab she was unhappy about going to rehab but ultimately agreeable we both stated she was unsafe to be alone at home; she only has caregivers 8 hours/day tele - a.fib, rates controlled Review of Systems Review of Systems: cv - no chest pain, no orthopnea pulm - no cough GI - no vomiting - incontinent with purewick Physical Exam Physical Exam: gen - NAD, obese, lying in bed comfortably, looks good neck - no obvious JVD mouth - MMM heart - irregularly irregular, s1 s2, 2/6 holosystolic murmur LLSB lungs - CTA b/l abd - soft obese ND NT ext - no edema b/l, pulses 2+ b/l psych - awake, alert - oriented, but has poor insight skin - mild stasis changes b/l shins Results & Data Results & Data ([facility]) Vital Signs (Past 12 Hours) Vital Signs Temp Pulse Resp BP Pulse Ox O2 Del Method 02/06/22 11:17 37.2 C 63 16 158/82 H 95 Room Air 02/06/22 09:00 36.5 C 76 16 167/76 H 95 Room Air Laboratory Results Laboratory Results - last 24 hr 02/06/22 02/06/22 02/06/22 05:47 05:47 07:57 WBC 10.88 H RBC 2.86 L Hgb 8.1 L Hct 25.6 L MCV 89.5 MCH 28.3 MCHC 31.6 L RDW Std Deviation 58.8 H RDW Coeff of Amos 18.7 H Plt Count 172 MPV 10.8 Sodium 138 Potassium 3.4 L Chloride 102 Carbon Dioxide 31 Anion Gap 5 BUN 31 H Creatinine 1.43 H Est Cr Clr Drug Dosing 39.3 Est GFR ( Amer) 40.0 Est GFR (Non-Af Amer) 34.5 BUN/Creatinine Ratio 21.7 H Glucose 115 H POC Glucose 137 H Calcium 8.0 L 02/06/22 02/06/22 11:45 16:25 WBC RBC Hgb Hct MCV MCH MCHC RDW Std Deviation RDW Coeff of Amos Plt Count MPV Sodium Potassium Chloride Carbon Dioxide Anion Gap BUN Creatinine Est Cr Clr Drug Dosing Est GFR ( Amer) Est GFR (Non-Af Amer) BUN/Creatinine Ratio Glucose POC Glucose 173 H 156 H Calcium PG Care Time/CCT Total # of Minutes Spent Total Time Spent with Patient: Total time spent is greater than 50% in coordination of care (as documented) at patient's floor/unit and/or counseling patient: Coding Level of Care Code 03277 Subseq Hosp Care Lvl 3 Diagnoses GI bleed K92.2 Acute blood loss anemia D62 Anemia D64.9 Acute diastolic CHF (congestive heart failure) I50.31 Pulmonary hypertension I27.20 TERESA (acute kidney injury) N17.9 Mitral regurgitation I34.0 Cardiac valve disease etiology: etiology unspecified Afib I48.21 Atrial fibrillation type: permanent Diabetes mellitus type 2, uncontrolled E11.65 Hypothyroidism E03.9 Elevated troponin R77.8 HTN (hypertension) I10 Hypertension type: primary hypertension Stress incontinence N39.3 Chronic renal failure, stage 3b N18.32 Morbid obesity with BMI of 40.0-44.9, adult E66.01; Z68.41 Cognitive disorder F09 (1) Afib Atrial fibrillation type: permanent Qualified Code(s): I48.21 - Permanent atrial fibrillation (2) Mitral regurgitation Cardiac valve disease etiology: etiology unspecified Qualified Code(s): I34.0 - Nonrheumatic mitral (valve) insufficiency (3) HTN (hypertension) Hypertension type: primary hypertension Qualified Code(s): I10 - Essential (primary) hypertension
[2022-02-07] MEDS: LEVOTHYROXINE SODIUM 112 MCG TABLET PO SCH (06:32)
[2022-02-07 08:19] LABS: Hematocrit (blood only) 25.2 % (34.1-44.9); Hemoglobin 8.2 g/dl (12.0-16.0); Mean Corpuscular Hemoglobin 28.8 pg (25.0-34.0); Mean Corpuscular Hgb Conc 32.5 g/dL (32.0-36.0); Mean Corpuscular Volume 88.4 fL (80.0-100.0); Mean Platelet Volume 11.4 fL (9.4-12.3); Platelet Count 174 K/uL (130-400); RDW Coefficient of Variation 18.6 % (11.5-14.5); RDW Standard Deviation 57.8 fL (36.4-46.3); Red Blood Count 2.85 M/uL (3.93-5.22); White Blood Count 7.61 K/ul (4.8-10.8)
[2022-02-07 08:40] LABS: BUN Creatinine Ratio 24.1 (10-20); Calcium 8.2 mg/dl (8.5-10.1); Creatinine Clr Calc Pharmacy 42.4 ml/min; Est GFR (African American) 43.6 ml/min; Est GFR (Non-African American) 37.7 ml/min; Magnesium 1.7 mg/dl (1.7-2.4)
[2022-02-07] MEDS: ACETAMINOPHEN 500 MG TAB PO SCH (08:43)
[2022-02-07] MEDS: LANTUS PER UNIT CHARGE SQ SCH (08:43)
[2022-02-07] MEDS: INSULIN ASPART PER UNIT SC SCH ×2 (08:43→12:21)
[2022-02-07] MEDS: MAGNESIUM OXIDE 400 MG TAB PO SCH (08:44)
[2022-02-07] MEDS: FUROSEMIDE 40 MG TAB PO SCH (08:44)
[2022-02-07] MEDS: THIAMINE HCL 100 MG TAB PO SCH (08:44)
[2022-02-07] MEDS: METOPROLOL SUCC 25MG EXT REL TAB PO SCH (08:44)
[2022-02-07] MEDS: POTASSIUM CHLORIDE CRTAB 20 MEQ TABCR PO SCH (08:44)
[2022-02-07] MEDS: DOXAZosin MESYLATE TAB 2 MG TAB PO SCH (08:45)
[2022-02-07] MEDS: CHOLECALCIFEROL 1,000 UNITS 25 MCG TAB PO SCH (08:45)
[2022-02-07] MEDS: FOLIC ACID 1 MG TAB PO SCH (08:45)
[2022-02-07] MEDS: LOSARTAN POTASSIUM 50 MG TAB PO SCH (08:45)
[2022-02-07] MEDS: NYSTATIN POWDER 15GM BTL EXT SCH (08:45)
[2022-02-07] MEDS ORDERED: IRON SUCROSE 300 MG in SODIUM CHLORIDE 0.9% 250 ML IV ONE (09:15)
--- NOTE | 2022-02-07 12:47 | Discharge Summary ---
Date of Service date of admission - January 30, 2022 date of discharge - February 07, 2022 Admission HPI Per Admitting Provider Luana is an 81 year old female with a PMH significant for cognitive disorder/delusional disorder (Niece Vaishnavi is her court appointed guardian), afib on Warfain, lower extremity edema, DM II, CKD stage 3, hypothyroidism, dyslipidemia, HTN, and urinary incontinence who presented to the [facility] ED on 01/30/22 at the recommendation of her PCP. In the ED the patient was noted to be afebrile, hemodynamically stable, and stable on RA. Labs were remarkable for a hgb of 6.3, stable platelets, INR of 2.2, Cr of 2.0 (baseline appears to be around 1.3), corrected sodium of 137, glucose of 238, corrected calcium of 8.4, stable liver function, covid negative, and positive stool occult blood. Prior to admission the patient was consented for blood, ordered 1 unit PRBCs, and started on a Protonix drip. At the time of the exam the patient was resting comfortably in bed in no acute distress with her Niece sitting bedside. History is obtained from the patient and her niece. The patient's niece states that her PCP has been monitor her Hgb as she has been having worsening anemia. Her niece states that they were alerted today by here PCP to go to the ED due to her Hgb of 6.3. When asked, the patient denies any recently bloody bowel movements or melena. She denies recent fevers, chills, chest pain, SOB, abdominal pain, nausea, vomiting, abdominal pain, dysuria, hematuria. Her niece said that the patient recently completed a 5 day course of ciprofloxacin for a UTI, she was noted to have hematuria when they obtained her UA. Her niece explains that the patient had a fall at home approximately 2 weeks ago, it is unsure if she hit her head at that time. She was noted to have some bruising on her back but she refused to go to the ED at that time. After my exam her niece spoke to me outside of the patient's room. She explained that the patient was diagnosed with a delusional disorder and her niece was granted limited guardianship but the court. Her niece states that the patient will tell everyone she is fine and has no problems when asked. The patient will also try to trick people into letting her leave without having caregivers at home. The patient lives at home alone and has some home health but only for about 8 hours daily. Her niece has been having issues finding the patient more help at home and is concerned that she will continue to have falls. I spoke to the patient had her niece regarding code status, she is a full code and her niece would make decisions for the patient if she cannot make decisions herself. Principal Diagnosis 1. GI bleeding, uncertain source 2. Acute blood loss anemia 2nd #1 3. Acute diastolic CHF 4. Severe mitral regurgitation Discharge Exam gen - NAD, obese, lying in bed comfortably, looks good neck - no obvious JVD mouth - MMM heart - irregularly irregular, s1 s2, 2/6 holosystolic murmur LLSB lungs - CTA b/l abd - soft obese ND NT ext - no edema b/l, pulses 2+ b/l psych - awake, alert - oriented, but has poor insight skin - mild stasis changes b/l shins Discharge Data Allergies Allergy/AdvReac Type Severity Reaction Status Date / Time Penicillins Allergy Intermediate Hives Verified 01/30/22 20:05 cefuroxime [From Ceftin] AdvReac Intermediate Diarrhea Verified 01/30/22 20:05 pioglitazone AdvReac Intermediate Fluid Verified 01/30/22 20:05 retention Consultations [facility] Procedures Performed Operation Date: 01/31/22 16:30 Actual Procedures p Esophagogastroduodenoscopy - Josef Song MD * Normal esophagus, stomach, and duodenum Operation Date: 02/05/22 16:45 Actual Procedures p Colonoscopy - See Gentile Case, DO Findings: The perianal and digital rectal examinations were normal. Multiple small-mouthed diverticula were found in the sigmoid colon. Non-bleeding internal hemorrhoids were found during retroflexion. The hemorrhoids were small. PRBCs x 3 units Ordered Studies Echocardiogram - EF 65-70%; severe mitral regurgitation; mod-severe pulmonary HTN (PA pressure 50-60mmHg). Hospital Course (1) GI bleed: Hb 6.3 at time of admission. Stool was heme+. Her coumadin was placed on hold while here. Previously her Hb was 8.1 on 01/25/22, and in 05/2021 she had hemoglobin of about 11 (baseline). s/p 3 units of PRBCs during the hospitalization. s/p 3 runs of IV venofer while here. Hb was 8.1 to 8.8 in the 4 days leading up to discharge. EGD by Dr Song, [facility] - 01/31 - negative/no source of bleeding. s/p colonoscopy by Dr Drew - 02/05 - diverticular disease (sigmoid) & hemorrhoids but no active bleeding. Given the negative EGD/colonoscopy - capsule endoscopy as outpatient? Advise repeat CBC within 5 days of discharge to ensure stability. Advise f/u with [facility] within 2 weeks of discharge. (2) Acute blood loss anemia: 2nd to #1 above. s/p 3 units PRBCs while here. Discharge hemoglobin was 8.2. (3) Anemia: multifactorial - acute blood loss anemia, chronic Fe deficiency (ferritin 51), folate deficiency (5), B12 (370). s/p 3 units PRBCs, 3 runs of IV venofer, folate and b12 replacement. (4) Acute diastolic CHF (congestive heart failure): Patient had copious diuresis during her stay. She had 25+ pounds of weight loss during the hospitalization. At discharge she was placed on lasix 40mg po qam. Remains on metoprolol succinate 25mg daily as well. Cause of decompensation? Severe mitral regurgitation, sleep-disordered breathing/pulmonary HTN, dietary indiscretion, uncontrolled a.fib, etc all could be contributing. Recommend close follow-up with [facility] shortly after discharge. (5) Pulmonary hypertension: severe on echo this admission. 2nd to severe MR? 2nd to sleep-disordered breathing? other cause? (6) TERESA (acute kidney injury): Peak Cr 2. Discharge Cr was 1.3. suspect TERESA 2nd to poor renal perfusion from #1. can't rule out volume overloaded state also contributing to TERESA but less likely. losartan 25mg daily was resumed at discharge. (7) Mitral regurgitation: severe on echo [facility] -- surgical intervention not advised at this time HOWEVER - her valve disease will need to be monitored carefully by cardiology as outpatient poor surgical candidate due to multiple comorbidities (8) Afib: controlled during the stay on telemetry. cont metoprolol succinate daily. holding anticoagulation (coumadin) due to #1 above. would hold at least 1 more week or longer at rehab. exact timing of resumption of coumadin is difficult to determine due to the GI bleeding and the uncertainty of what the source is. (9) Diabetes mellitus type 2, uncontrolled: Most recent HgbA1C elevated at 8.3% Cont lantus daily Cont metformin 500mg BID (10) Hypothyroidism: Continue levothyroxine Recent TSH normal at 2.2 (11) Elevated troponin: 2nd to myocardial demand ischemia no Rx needed (12) HTN (hypertension): Cont losartan, doxazosin, metoprolol succinate, and lasix. Cont to hold HCTZ at discharge. (13) Stress incontinence: Continue doxazosin Continue trospium (14) Chronic renal failure, stage 3b: baseline CrCl 30s/low 40s BMP stable at discharge (15) Morbid obesity with BMI of 40.0-44.9, adult: BMI 40 (16) Cognitive disorder: Patient has a h/o of delusional disorder and cognitive impairment and her niece is her court appointed guardian (Ms Vaishnavi Roldan). Guardian is able to consent for patient to go to a SNF if it is recommended by a medical provider even if patient refuses. Patient also with poor self-care, frequent falls, poor insight/judgement into her health problems, etc. (17) Folic acid deficiency: folic acid 1mg daily x 30 days. also advise B12 supplementation 1000mcg daily for several months at minimum. Total Time Total Time Spent Total Time Spent (In Minutes): 45 Discharge Plan Discharge Items Patient Disposition: Transfer [facility] Reason For Visit: GI BLEEDING Discharge Diagnosis: 1. GI bleeding - cause uncertain; source not found on EGD or colonoscopy 2. Acute blood loss anemia - discharge hemoglobin 8.2 3. Iron deficiency 4. Acute diastolic CHF 5. Pulmonary hypertension 6. Morbid obesity 7. Permanent a.fib 8. Cognitive disorder 9. Hypothyroidism Activity: Resume your previous activity Non-emergency contact: Primary Care Provider, [employer] Analyst Call non-emergency contact if: you have any medication questions and your symptoms worsen Follow-up/Referrals: [facility] [Provider Group] (recommend get establish visit with cardiology for chronic diastolic CHF/pulmonary HTN) Doug Leon MD [Primary Care Provider] - See Drew DO [Physician] - (see Dr Drew or his associates within 2 weeks; diagnosis - GI bleed, post-hospital follow-up) Diet: Carb Consistent or DM2 and Heart Healthy Fluids: 1800ml (7 cups) Addtl Attending Provider Instructions: Ms Agrawal was admitted for the problems noted above in "discharge diagnoses." Recommendations - 1. CBC in 3 days for stability, then 1 week after that 2. BMP, magnesium level - in 3 days, then 1 week after that 3. BSG checks ac/hs 4. daily weights - standing scale if possible please; report weight gain of more than 2-3 pounds over 1-2 days to medical directors 5. follow-up appointments as listed Please note - Ms Vaishnavi Roldan is patient's POA. Please contact Ms Roldan for any needs, consents for patient, etc. Pending Studies at Discharge: Yes Studies:: vitamin B1 level Stand-Alone Forms: My [facility] Skilled Items Patient informed of condition?: Yes DNR: No Discharge Level of Care: Skilled Communicable Disease: No Discharge Prognosis: Stable Lines: None Urinary Catheter: No Medications and DC Order Prescriptions: New losartan 50 mg Tablet 25 mg PO QAM Qty: 30 2RF furosemide 40 mg Tablet 40 mg PO QAM Qty: 30 2RF potassium chloride 20 mEq Tablet,Er Particles/Crystals 20 meq PO DAILY Qty: 30 2RF insulin glargine [Lantus U-100 Insulin] 100 unit/mL Solution 8 unit subcut HS Qty: 10 0RF magnesium oxide 400 mg (241.3 mg magnesium) Tablet 400 mg PO QAM Qty: 30 2RF nystatin [Nystop] 100,000 unit/gram Powder 1 applic EXT TID Qty: 30 0RF Rx Instructions: apply to skin fold rash (lower abdomen, sides, groin, etc) thiamine HCl (vitamin B1) 100 mg Tablet 200 mg PO BID 30 Days Qty: 120 0RF folic acid 1 mg Tablet 1 mg PO QAM Qty: 30 0RF cyanocobalamin (vitamin B-12) 1,000 mcg capsule 1,000 mcg PO DAILY Qty: 90 1RF Continued doxazosin 2 mg tablet 2 mg PO QAM Qty: 90 3RF metoprolol succinate 25 mg tablet extended release 24 hr 25 mg PO QAM Qty: 90 3RF metformin 500 mg tablet extended release 24 hr 500 mg PO BID Qty: 180 3RF levothyroxine 112 mcg tablet 112 mcg PO QAM Qty: 90 0RF trospium 20 mg tablet 20 mg PO HS Qty: 90 1RF cholecalciferol (vitamin D3) 50 mcg (2,000 unit) capsule 50 mcg PO DAILY Qty: 30 6RF acetaminophen [Tylenol Extra Strength] 500 mg tablet 1,000 mg PO BID Discontinued warfarin 5 mg tablet 5 mg PO QPM Rx Instructions: ON HOLD FOR 3 DAY, 01/27-01/29, THEN RETURN TO-- 5mg x DAILY per [facility] orally use as directed; tramadol 50 mg tablet 25 mg PO DAILY PRN (Reason: pain) Qty: 15 0RF losartan-hydrochlorothiazide [Hyzaar] 100-25 mg tablet 1 tab PO QAM Qty: 90 1RF ciprofloxacin HCl 250 mg tablet 250 mg PO BID 5 Days Qty: 10 0RF Rx Instructions: STARTED 01/24/22 FOR 5 DAYS. Discharge Orders: Discharge Order (Routine); Ordered 02/07/22 Ordered By: Santos Lima Admission Data Admit Date/Time: 01/30/22 20:28 Attending Provider: Santos Lima Admit Provider: Abel Car Primary Care Provider: Doug Leon Other Providers: Abel Car ; Jose Roman ; See Drew ; Lisbeth Hays ; Suni Zhang ; Xenia Aguilar ; Yanet Bush ; Josef Song ; Rufina Saha ; Angel Bazzi ; Kate Proctor ; Raz Stone ; Evans Camarillo ; Brenda Christianson ; Nancy Guzman ; Abi Delgado ; Yesy Barney ; Jericho Ribeiro ; Raheem Betts ; Ken Silva ; Carin Gupta ; [place] Posada Jr ; [facility] [place] ; [facility] ; [facility] ; Conor Michelle Other Interventions: Discharge Summary Assessment (RN) Last Done: 02/07/22 11:27 Coding Level of Care Code D/C DAY MANAGEMENT >30 MINS Diagnoses GI bleed K92.2 Acute blood loss anemia D62 Anemia D64.9 Acute diastolic CHF (congestive heart failure) I50.31 Pulmonary hypertension I27.20 TERESA (acute kidney injury) N17.9 Mitral regurgitation I34.0 Cardiac valve disease etiology: etiology unspecified Afib I48.21 Atrial fibrillation type: permanent Diabetes mellitus type 2, uncontrolled E11.65 Hypothyroidism E03.9 Elevated troponin R77.8 HTN (hypertension) I10 Hypertension type: primary hypertension Stress incontinence N39.3 Chronic renal failure, stage 3b N18.32 Morbid obesity with BMI of 40.0-44.9, adult E66.01; Z68.41 Cognitive disorder F09 Folic acid deficiency E53.8
== END 2022-02-07 14:08 | DRG 377 ==
LOC: ED 18:56 → SUATTDRO 20:28 → 2N 20:28